=== PATIENT | female | born 1945 | race Caucasian/White ===

== ENCOUNTER 2020-06-01 04:05 | Emergency (ER) | payer MEDICARE, SELFPAY ==
[2020-06-01 04:07] VITALS: BP 114/62; BP 119/68; PULSE 83; PULSE 84; RESP 16; TEMP 36.2; O2SAT 91; O2SAT 94; BMI 24.7
--- NOTE | 2020-06-01 04:28 | ED.ALCOHOL ---
HPI - Alcohol General Chief Complaint: ETOH/Substance Use Stated Complaint: ETOH/FALL Time Seen by Provider: 06/01/20 04:25 Source: patient and EMS Mode of arrival: EMS Limitations: no limitations History of Present Illness HPI narrative: patient alcoholic been here frequent had few beers today was in the bathroom and nauseated and had bowel movement had stool all over the bathroom. Patient denies any fall no head injury no vomiting now feeling fine family called the ambulance because unable to manage. Patient does not remember why was she is in bathroom and what what was she doing denies any pain MD complaint: alcohol intoxication Chronic alcohol use: Yes Previous visits for alcohol intoxication: Yes Recent trauma: No Related Data Allergies Allergy/AdvReac Type Severity Reaction Status Date / Time ibuprofen [IBUPROFEN] Allergy Unknown RASH Verified 06/01/20 04:06 Review of Systems Review of Systems: REVIEW OF SYSTEMS: Pertinent positives and negatives are stated above in the history. GEN: no fevers, chills, fatigue HEENT: no nasal congestion, sore throat, ear pain NEURO: no headache, dizziness, focal weakness PULM: no cough, shortness of breath CV: no chest pain, palpitations, LE edema ABD: no abdominal pain, nausea, vomiting, diarrhea : no dysuria, urgency, frequency SKIN: no rash ROS otherwise negative x 10 PMFSH Past Medical History Medical History Depression Social History Social History Advance Directives: No Advance Directives Information Provided: No Physical Exam Vital Signs: Vital Signs: Last Vital Signs Temp 97.1 F 06/01/20 04:07 Pulse 81 06/01/20 06:56 Resp 18 06/01/20 06:56 BP 141/77 H 06/01/20 06:56 Pulse Ox 99 06/01/20 06:56 Body Mass Index 24.7 Appearance: Alert. Oriented X3. No acute distress. intoxicated soiled in stool Eyes: Pupils equal, round and reactive to light. ENT: Pharynx normal. atraumatic Neck: Normal inspection. Neck supple. CVS: Normal heart rate and rhythm. Pulses normal. Respiratory: No respiratory distress. Breath sounds normal. Abdomen: Soft and nontender. no mass palpable Skin: Skin warm and dry. Normal skin color. Normal skin turgor. Extremities: No lower extremity edema. Good range of movement Neuro: Oriented X 3. No motor deficit. No sensory deficit. MDM - Alcohol MDM Narrative Medical decision making narrative: patient alcohol abuse disorder came intoxicated will wait for family to come and take her home patient refused to go to detox at this time Differential Diagnosis Differential diagnosis: Likely alcohol dependence Medical Records Attestation: I reviewed the patient's medical records. Lab Data Attestation: I reviewed the patient's lab results. Result diagrams: 06/01/20 04:54 06/01/20 04:54 Labs: Lab Results 06/01/20 06/01/20 06/01/20 Range/Units 04:54 04:54 04:54 WBC 7.2 (4.8-10.8) X10*3/uL RBC 4.52 (4.20-5.50) X10*6/uL Hgb 12.8 (12.0-16.0) g/dl Hct 39.7 (37-47) % MCV 87.8 (80-98) fL MCH 28.3 (27.0-33.0) pg MCHC 32.2 (31.0-35.0) g/dl RDW 13.8 (11.0-16.0) % Plt Count 205 (160-400) X10*3/uL MPV 10.1 (9.4-12.3) fL Immature Gran % (Auto) 0.8 H (0.0-0.4) % Neut % (Auto) 78.9 H (45-73) % Lymph % (Auto) 13.9 L (20-40) % [place] % (Auto) 5.4 (2-11) % Eos % (Auto) 0.7 (0-4) % Baso % (Auto) 0.3 (0-2) % Lymph # (Auto) 1.0 L (1.2-4.9) X10*3/uL [place] # (Auto) 0.4 (0.1-1.2) X10*3/uL Eos # (Auto) 0.1 (0.0-0.4) X10*3/uL Baso # (Auto) 0.0 (0.0-0.2) X10*3/uL Abs Immat Gran (auto) 0.06 H (0.00-0.03) X10*3/uL Absolute Neuts (auto) 5.7 (2.0-8.3) X10*3/uL Absolute Nucleated RBC 0.000 (0.0-0.012) X10*3/uL Nucleated RBC % (auto) 0.0 (0.0-0.2) /100WBC Sodium 141 (135-145) mmol/L Potassium 3.9 (3.3-5.1) mmol/l Chloride 108 (96-108) mmol/L Carbon Dioxide 17 L (22-29) mmol/L Anion Gap 20 (12-20) BUN 14 (9-16) mg/dL Creatinine 0.89 (0.5-1.4) mg/dL Estim Creat Clear Calc 49.0 Estimated GFR > 60 Random Glucose 103 (60-115) mg/dL Calcium 9.0 (8.4-10.2) mg/dL Total Bilirubin 0.3 (0.0-1.0) mg/dL AST 45 H (5-31) U/L ALT 34 H (0-31) U/L Alkaline Phosphatase 89 (39-117) U/L Troponin I High Sens (<3.5-17.0) ng/L Total Protein 8.1 H (6.5-8.0) g/dL Albumin 4.6 (3.5-5.0) g/dL Lipase 66 (8-78) U/L Ethyl Alcohol 250 mg/dL 06/01/20 Range/Units 04:54 WBC (4.8-10.8) X10*3/uL RBC (4.20-5.50) X10*6/uL Hgb (12.0-16.0) g/dl Hct (37-47) % MCV (80-98) fL MCH (27.0-33.0) pg MCHC (31.0-35.0) g/dl RDW (11.0-16.0) % Plt Count (160-400) X10*3/uL MPV (9.4-12.3) fL Immature Gran % (Auto) (0.0-0.4) % Neut % (Auto) (45-73) % Lymph % (Auto) (20-40) % [place] % (Auto) (2-11) % Eos % (Auto) (0-4) % Baso % (Auto) (0-2) % Lymph # (Auto) (1.2-4.9) X10*3/uL [place] # (Auto) (0.1-1.2) X10*3/uL Eos # (Auto) (0.0-0.4) X10*3/uL Baso # (Auto) (0.0-0.2) X10*3/uL Abs Immat Gran (auto) (0.00-0.03) X10*3/uL Absolute Neuts (auto) (2.0-8.3) X10*3/uL Absolute Nucleated RBC (0.0-0.012) X10*3/uL Nucleated RBC % (auto) (0.0-0.2) /100WBC Sodium (135-145) mmol/L Potassium (3.3-5.1) mmol/l Chloride (96-108) mmol/L Carbon Dioxide (22-29) mmol/L Anion Gap (12-20) BUN (9-16) mg/dL Creatinine (0.5-1.4) mg/dL Estim Creat Clear Calc Estimated GFR Random Glucose (60-115) mg/dL Calcium (8.4-10.2) mg/dL Total Bilirubin (0.0-1.0) mg/dL AST (5-31) U/L ALT (0-31) U/L Alkaline Phosphatase (39-117) U/L Troponin I High Sens < 3.5 (<3.5-17.0) ng/L Total Protein (6.5-8.0) g/dL Albumin (3.5-5.0) g/dL Lipase (8-78) U/L Ethyl Alcohol mg/dL Discharge Plan Discharge Clinical Impression: Alcoholic intoxication Patient Disposition: Home, Self-Care Instructions: Alcohol Intoxication (ED) Additional Instructions: stop drinking alcohol follow-up with detox Print Language: [place]
--- NOTE | 2020-06-01 04:43 | ECG_ITS ---
Test Reason : FALL Blood Pressure : / mmHG Vent. Rate : 068 BPM Atrial Rate : 068 BPM P-R Int : 148 ms QRS Dur : 104 ms QT Int : 438 ms P-R-T Axes : 058 020 028 degrees QTc Int : 465 ms Normal sinus rhythm Normal ECG No significant changes when compared with the previous EKG of 04 jul 2007. Referred By: Herbie Ham Electronically Signed By:MARRY NEAL
[2020-06-01] MEDS: 0.9 % Sodium Chloride 1,000 ML 999 ML IVCONT (04:55)
[2020-06-01 05:03] LABS: Basophils Percent Auto 0.3 % (0-2); Eosinophils Absolute Auto 0.1 X10*3/uL (0.0-0.4); Eosinophils Percent Auto 0.7 % (0-4); Hematocrit 39.7 % (37-47); Hemoglobin 12.8 g/dl (12.0-16.0); Imm Gran Abs Auto 0.06 X10*3/uL (0.00-0.03); Imm Gran Pct Auto 0.8 % (0.0-0.4); Lymphocytes Percent Auto 13.9 % (20-40); MANUAL DIFF FLAG NO; Mean Corpuscular HGB Conc 32.2 g/dl (31.0-35.0); Mean Corpuscular Hemoglobin 28.3 pg (27.0-33.0); Mean Corpuscular Volume 87.8 fL (80-98); Mean Platelet Volume 10.1 fL (9.4-12.3); Monocytes Absolute Auto 0.4 X10*3/uL (0.1-1.2); Monocytes Percent Auto 5.4 % (2-11); Neutrophils Absolute Auto 5.7 X10*3/uL (2.0-8.3); Neutrophils Percent Auto 78.9 % (45-73); Platelet Count 205 X10*3/uL (160-400); Red Blood Count 4.52 X10*6/uL (4.20-5.50); Red Cell Distribution Width 13.8 % (11.0-16.0); White Blood Count 7.2 X10*3/uL (4.8-10.8)
[2020-06-01 05:23] LABS: Ethanol 250 mg/dL
[2020-06-01 05:38] LABS: Alanine Aminotransferase 34 U/L (0-31); Albumin Level 4.6 g/dL (3.5-5.0); Alkaline Phosphatase 89 U/L (39-117); Anion Gap 20 (12-20); Aspartate Amino Transferase 45 U/L (5-31); Bilirubin Total 0.3 mg/dL (0.0-1.0); Blood Urea Nitrogen 14 mg/dL (9-16); Carbon Dioxide 17 mmol/L (22-29); Chloride 108 mmol/L (96-108); Estimated Glomerular Filt Rate > 60; Glucose Random 103 mg/dL (60-115); Lipase 66 U/L (8-78); Potassium 3.9 mmol/l (3.3-5.1); Sodium 141 mmol/L (135-145); Total Protein 8.1 g/dL (6.5-8.0)
[2020-06-01 06:04] LABS: Troponin-I High Sensitivity < 3.5 ng/L (<3.5-17.0)
[2020-06-01 06:08] VITALS: BP 136/71; PULSE 73; RESP 14; O2SAT 98
[2020-06-01 06:56] VITALS: BP 141/77; PULSE 81; RESP 18; O2SAT 99
--- NOTE | 2020-06-01 07:22 | PC.NURSE ---
CALL TO DAUGHTER FOR TRANSPORT HOME, NO ANSWER.
--- NOTE | 2020-06-01 07:28 | PC.NURSE ---
CONTACTED , WILL BE TO [employer] PATIENT IN 30 MINUTES.
[2020-06-01 08:02] LABS: Magnesium 2.5 mg/dL (1.6-2.6)
== END 2020-06-01 07:57 | disposition home or self-care (01) ==
PROVIDERS: Emergency Provider Internal Medicine
DX: F10.120 Alcohol abuse with intoxication, uncomplicated (principal); Y90.8 Blood alcohol level of 240 mg/100 ml or more
CPT/HCPCS: 36415; 80053; 80320; 83690; 83735; 84484; 85025; 93005; 96360; 99284

== ENCOUNTER 2020-06-05 10:37 | Emergency (ER) | payer MEDICARE, SELFPAY ==
[2020-06-05 11:18] VITALS: BP 154/67; PULSE 85; RESP 18; TEMP 36.6; O2SAT 97; BMI 26.0
--- NOTE | 2020-06-05 11:34 | XR_ITS ---
EXAMINATION: XR RIBS, RIGHT CLINICAL INFORMATION: Rib pain post fall COMPARISON: None TECHNIQUE: 3 views of the right ribs and one view of the chest were obtained. FINDINGS: The cardiac and mediastinal contours are normal. There is scarring or subsegmental atelectasis at the lung bases. The lungs are otherwise clear. There is no pleural effusion or pneumothorax. There are right anterior seventh and 10th rib fractures. XR/XR ribs RT min 3V w CXR1V IMPRESSION: Right anterior seventh and 10th rib fractures. No evidence for acute disease in the chest.
--- NOTE | 2020-06-05 12:00 | ED.FALL ---
HPI - Fall General Chief Complaint: Back Pain/Injury Stated Complaint: back pain Time Seen by Provider: 06/05/20 11:34 Source: patient Mode of arrival: ambulatory Limitations: language barrier History of Present Illness HPI Narrative: 74 y/o female with history of alcohol abuse s/p recent fall in the bathroom 06/01 while intoxicated presents back to the ER with persistent right sided rib pain. She was seen here after the fall on 06/01, blood work and EKG were checked - she refused detox and was discharged home. She reports pain in the right rib cage, worse with palpation, movement and deep inspiration. She bought and abdominal binder and has been taking Tylenol without improvement. She denies SOB, chest pain, abdominal pain, N/V. complaint: fall Onset (ago): day(s) Fall from: standing Fall witnessed: no Place fall occurred: home Loss of consciousness: none Prolonged down time: no Symptoms prior to fall: none Context: tripped/slipped and alcohol use Location of injury: chest Severity: moderate Severity scale (1-10): 6 Quality: aching Associated symptoms (after fall): denies Related Data Previous Rx's Medication Instructions Recorded acetaminophen [Tylenol Arthritis 650 mg PO Q8H PRN #30 tab 06/05/20 Pain] lidocaine [Lidoderm] 1 patch TOPICAL DAILY #15 ea 06/05/20 Allergies Allergy/AdvReac Type Severity Reaction Status Date / Time ibuprofen [IBUPROFEN] Allergy Unknown RASH Verified 06/01/20 04:06 Review of Systems Review of Systems: Constitutional: No Fever, No Chills Cardiovascular: No Chest Pain, No SOB Respiratory: No Cough, No Sputum Gastrointestinal: No Nausea, No Vomiting, No Diarrhea, No abdominal Pain Musculoskeletal: + joint pain, + Myalgias Skin: No Skin Lesions, No rash Neuro: No Weakness, No Numbness, No Dizziness, No Headache Psych: No Anxiety/Panic, No Depression Heme/Lymph: + Bruising PMFSH Past Medical History Attestation statement: The following information was validated with the patient. Medical History Depression Social History Social History Advance Directives: No Advance Directives Information Provided: Yes Physical Exam Vital Signs: Vital Signs: Last Vital Signs Temp 97.8 F 12/09/20 11:18 Pulse 85 06/05/20 11:18 Resp 18 06/05/20 11:18 BP 154/67 H 06/05/20 11:18 Pulse Ox 97 06/05/20 11:18 Body Mass Index 26.0 Appearance: Alert. Oriented X3. No acute distress. Neck: Normal inspection. Neck supple. CVS: Normal heart rate and rhythm. Pulses normal. Respiratory: No respiratory distress. Breath sounds normal. Chest wall: right anterior and lateral lower rib pain, mild small ecchmotic area over 11th rib at mid-clavicular line Abdomen: Soft and nontender. +BS x4, no RUQ tenderness, no rebound or guarding Skin: Skin warm and dry. Normal skin color. Normal skin turgor. No rashes. Extremities: No lower extremity edema. Neuro: Oriented X 3. No motor deficit. No sensory deficit. Course Course Course Narrative: 74 y/o female presenting with right sided rib pain s/p fall while intoxicated on 06/01. Exam reveals mild ecchymosis on lower ribs with tenderness, concern for rib fracture. Vitals are stable and SpO2 97% on room air. Lungs are clear, less likely pulmonary contusion. No other injuries noted. Will get XR ribs and chest. Reevaluation(s) Reevaluation #1: XR shows anterior rib fractures 7th and 10th ribs. She appears well, SpO2 97%. Incentive spirometry ordered and patient educated with RT. She was counseled on risk of developing pneumonia due to splinting. Will give Rx for Tylenol, topical lidocaine patches. Patient at high risk for recurrent falls due to alcohol use and it is not in her best interest to prescribe narcotics. She understands and agrees with plan. Stable for discharge. Discharge Plan Discharge Clinical Impression: Multiple rib fractures Qualifiers: Encounter type: initial encounter Fracture type: closed Laterality: right Qualified Code(s): S22.41XA - Multiple fractures of ribs, right side, initial encounter for closed fracture Patient Disposition: Home, Self-Care Instructions: Rib Fracture (ED) Additional Instructions: Your Chest X-ray showed 2 rib fracutres on the right side. It is very important that you use your Incentive Spirometer to take deep breaths & keep your lungs expanded. This will help present pneumonia. If you develop difficulty breathing, shortness of breath, fevers, worsening cough call your doctor or come back to the ER for further evaluation. DO NOT drink alcohol. This will increase your risk of recurrrent falls. Prescriptions: New acetaminophen [Tylenol Arthritis Pain] 650 mg tablet extended release 650 mg PO Q8H PRN (Reason: pain) Qty: 30 RF: 0 lidocaine [Lidoderm] 5 % adhesive patch,medicated 1 patch topical DAILY Qty: 15 RF: 0
== END 2020-06-05 13:22 | disposition home or self-care (01) ==
PROVIDERS: Emergency Provider Emergency Medicine; PCP Internal Medicine
DX: S22.41XA Multiple fractures of ribs, right side, initial encounter for closed fracture (principal); W01.10XA Fall on same level from slipping, tripping and stumbling with subsequent striking against unspecified object, initial encounter; F10.10 Alcohol abuse, uncomplicated; Z91.81 History of falling; Y93.89 Activity, other specified; Y92.012 Bathroom of single-family (private) house as the place of occurrence of the external cause; Y99.9 Unspecified external cause status
CPT/HCPCS: 71101; 99283

== ENCOUNTER 2020-08-14 11:25 | Outpatient (REF) | payer MEDICARE, SELFPAY ==
--- NOTE | ~2020-08-14 | MM_ITS ---
EXAMINATION: MM SCREENING DIGITAL BREAST TOMOSYNTHESIS, BILATERAL CLINICAL INFORMATION: Screening. Asymptomatic. The lifetime risk of breast cancer based on the Tyrer-Cuzick Model is 2%. COMPARISON: Mammography: 04/07/2019, 04/06/2018, 03/22/2017 TECHNIQUE: Digital breast tomosynthesis is performed in both the craniocaudal and mediolateral oblique views along with computer-aided detection (CAD). Synthesized 2D images are generated from the tomosynthesis. FINDINGS: There are scattered areas of fibroglandular density (ACR BI-RADS breast composition Category b). There are no significant masses, abnormal calcifications, or other abnormalities. The axilla and skin contours are unremarkable. MM/MM tomosynthesis screening BI IMPRESSION: No mammographic evidence of malignancy. ASSESSMENT: BI-RADS 1: Negative RECOMMENDATION: Routine annual mammography screening. This patient's information was entered into a reminder system with a target due date for their next mammogram.
== END 2020-08-14 11:26 | disposition home or self-care (01) ==
LOC: HO.MAMMO 11:25
PROVIDERS: Visit Provider Internal Medicine
DX: Z12.31 Encounter for screening mammogram for malignant neoplasm of breast (principal)
CPT/HCPCS: 77063; 77067

== ENCOUNTER 2020-08-23 09:57 | Outpatient (REF) | payer MEDICARE, SELFPAY ==
[2020-08-23 12:46] LABS: Alanine Aminotransferase 18 U/L (0-31); Albumin Level 4.5 g/dL (3.5-5.0); Alkaline Phosphatase 102 U/L (39-117); Anion Gap 14 (12-20); Aspartate Amino Transferase 16 U/L (5-31); Bilirubin Total 0.5 mg/dL (0.0-1.0); Blood Urea Nitrogen 23 mg/dL (9-16); Calcium 9.5 mg/dL (8.4-10.2); Carbon Dioxide 26 mmol/L (22-29); Chloride 104 mmol/L (96-108); Cholesterol 225 mg/dL; Estimated Glomerular Filt Rate > 60; Glucose Random 106 mg/dL (60-115); HDL Cholesterol 64 mg/dL; LDL Cholesterol Calculated 129 mg/dl; Potassium 3.9 mmol/L (3.3-5.1); Sodium 140 mmol/L (135-145); Total Protein 7.6 g/dL (6.5-8.0); Triglycerides 160 mg/dL
== END 2020-08-23 09:58 | disposition home or self-care (01) ==
LOC: HO.LAB 09:57
PROVIDERS: Visit Provider Internal Medicine
DX: E78.2 Mixed hyperlipidemia (principal); I10 Essential (primary) hypertension; S22.41XS Multiple fractures of ribs, right side, sequela; Z68.25 Body mass index [BMI] 25.0-25.9, adult
CPT/HCPCS: 36415; 80053; 80061

== ENCOUNTER 2021-01-23 11:55 | Outpatient (REF) | payer MEDICARE, SELFPAY ==
[2021-01-23 12:23] LABS: MANUAL DIFF FLAG NO
[2021-01-23 12:33] LABS: Basophils Percent Auto 0.3 % (0-2); Eosinophils Absolute Auto 0.3 X10*3/uL (0.0-0.4); Eosinophils Percent Auto 4.3 % (0-4); Hemoglobin 12.3 g/dl (12.0-16.0); Imm Gran Abs Auto 0.02 X10*3/uL (0.00-0.03); Imm Gran Pct Auto 0.3 % (0.0-0.4); Lymphocytes Absolute Auto 2.2 X10*3/uL (1.2-4.9); Lymphocytes Percent Auto 34.5 % (20-40); Mean Corpuscular HGB Conc 32.4 g/dl (31.0-35.0); Mean Corpuscular Volume 86.6 fL (80-98); Mean Platelet Volume 10.2 fL (9.4-12.3); Monocytes Absolute Auto 0.5 X10*3/uL (0.1-1.2); Monocytes Percent Auto 8.4 % (2-11); Neutrophils Absolute Auto 3.4 X10*3/uL (2.0-8.3); Neutrophils Percent Auto 52.2 % (45-73); Platelet Count 212 X10*3/uL (160-400); Red Blood Count 4.39 X10*6/uL (4.20-5.50); Red Cell Distribution Width 14.5 % (11.0-16.0); White Blood Count 6.5 X10*3/uL (4.8-10.8)
[2021-01-23 12:46] LABS: Alanine Aminotransferase 31 U/L (0-31); Albumin Level 4.3 g/dL (3.5-5.0); Alkaline Phosphatase 103 U/L (39-117); Anion Gap 14 (12-20); Aspartate Amino Transferase 24 U/L (5-31); Bilirubin Total 0.6 mg/dL (0.0-1.0); Blood Urea Nitrogen 15 mg/dL (9-16); Calcium 9.9 mg/dL (8.4-10.2); Carbon Dioxide 25 mmol/L (22-29); Chloride 107 mmol/L (96-108); Cholesterol 249 mg/dL; Estimated Glomerular Filt Rate > 60; Glucose Random 97 mg/dL (60-115); HDL Cholesterol 54 mg/dL; LDL Cholesterol Calculated 138 mg/dl; Potassium 4.3 mmol/L (3.3-5.1); Sodium 142 mmol/L (135-145); Total Protein 7.2 g/dL (6.5-8.0); Triglycerides 285 mg/dL
== END 2021-01-23 11:56 | disposition home or self-care (01) ==
LOC: HO.LAB 11:55
PROVIDERS: PCP Internal Medicine; Visit Provider Internal Medicine
DX: E78.2 Mixed hyperlipidemia (principal); F33.42 Major depressive disorder, recurrent, in full remission; G30.9 Alzheimer's disease, unspecified; I10 Essential (primary) hypertension
CPT/HCPCS: 36415; 80053; 80061; 85025

== ENCOUNTER 2021-05-13 11:38 | Outpatient (REF) | payer MEDICARE, SELFPAY ==
[2021-05-13 13:56] LABS: Alanine Aminotransferase 30 U/L (0-31); Albumin Level 4.2 g/dL (3.5-5.0); Alkaline Phosphatase 124 U/L (39-117); Anion Gap 15 (12-20); Aspartate Amino Transferase 23 U/L (5-31); Bilirubin Total 0.4 mg/dL (0.0-1.0); Blood Urea Nitrogen 13 mg/dL (9-16); Calcium 9.5 mg/dL (8.4-10.2); Carbon Dioxide 21 mmol/L (22-29); Chloride 108 mmol/L (96-108); Cholesterol 208 mg/dL; Estimated Glomerular Filt Rate > 60; Glucose Random 91 mg/dL (60-115); HDL Cholesterol 50 mg/dL; LDL Cholesterol Calculated 98 mg/dl; Potassium 4.2 mmol/L (3.3-5.1); Sodium 140 mmol/L (135-145); Total Protein 7.3 g/dL (6.5-8.0); Triglycerides 302 mg/dL
== END 2021-05-13 11:39 | disposition home or self-care (01) ==
LOC: HO.LAB 11:38
PROVIDERS: PCP Internal Medicine; Visit Provider Internal Medicine
DX: Z00.00 Encounter for general adult medical examination without abnormal findings (principal); E78.2 Mixed hyperlipidemia; I10 Essential (primary) hypertension; F51.02 Adjustment insomnia
CPT/HCPCS: 36415; 80053; 80061

== ENCOUNTER 2021-08-19 12:41 | Outpatient (REF) | payer MEDICARE, SELFPAY ==
--- NOTE | ~2021-08-19 | MM_ITS ---
EXAMINATION: MM SCREENING DIGITAL BREAST TOMOSYNTHESIS, BILATERAL CLINICAL INFORMATION: Screening. Asymptomatic. The lifetime risk of breast cancer based on the Tyrer-Cuzick Model is 2%. COMPARISON: Mammography: 08/14/2020, 04/07/2019, 04/06/2018 TECHNIQUE: Digital breast tomosynthesis is performed in both the craniocaudal and mediolateral oblique views along with computer-aided detection (CAD). Synthesized 2D images are generated from the tomosynthesis. FINDINGS: There are scattered areas of fibroglandular density (ACR BI-RADS breast composition Category b). There are no significant masses, abnormal calcifications, or other abnormalities. Parenchymal pattern is similar to prior studies. There is no developing density or architectural abnormality. The axilla and skin contours are unremarkable. No significant changes. MM/MM tomosynthesis screening BI IMPRESSION: No mammographic evidence of malignancy. ASSESSMENT: BI-RADS 1: Negative RECOMMENDATION: Routine annual mammography screening. This patient's information was entered into a reminder system with a target due date for their next mammogram.
== END 2021-08-19 12:42 | disposition home or self-care (01) ==
LOC: HO.MAMMO 12:41
PROVIDERS: PCP Internal Medicine; Visit Provider Internal Medicine
DX: Z12.31 Encounter for screening mammogram for malignant neoplasm of breast (principal)
CPT/HCPCS: 77063; 77067

== ENCOUNTER 2021-12-17 11:27 | Outpatient (REF) | payer OTHER, SELFPAY ==
[2021-12-17 11:37] LABS: MANUAL DIFF FLAG NO
[2021-12-17 13:05] LABS: Basophils Percent Auto 0.5 % (0-2); Eosinophils Absolute Auto 0.2 X10*3/uL (0.0-0.4); Eosinophils Percent Auto 3.3 % (0-4); Hematocrit 37.1 % (37.0-47.0); Hemoglobin 12.2 g/dl (12.0-16.0); Imm Gran Abs Auto 0.02 X10*3/uL (0.00-0.03); Imm Gran Pct Auto 0.3 % (0.0-0.4); Lymphocytes Absolute Auto 1.9 X10*3/uL (1.2-4.9); Lymphocytes Percent Auto 29.3 % (20-40); Mean Corpuscular HGB Conc 32.9 g/dl (31.0-35.0); Mean Corpuscular Hemoglobin 28.7 pg (27.0-33.0); Mean Corpuscular Volume 87.3 fL (80.0-98.0); Mean Platelet Volume 10.5 fL (9.4-12.3); Monocytes Absolute Auto 0.6 X10*3/uL (0.1-1.2); Monocytes Percent Auto 9.3 % (2-11); Neutrophils Absolute Auto 3.6 x10*3/uL (2.0-8.3); Neutrophils Percent Auto 57.3 % (45-73); Platelet Count 231 X10*3/uL (160-400); Red Blood Count 4.25 X10*6/uL (4.20-5.50); Red Cell Distribution Width 14.2 % (11.0-16.0); White Blood Count 6.3 X10*3/uL (4.8-10.8)
[2021-12-17 13:33] LABS: Alanine Aminotransferase 32 U/L (0-31); Albumin Level 4.4 g/dL (3.5-5.0); Alkaline Phosphatase 118 U/L (39-117); Anion Gap 11 (12-20); Aspartate Amino Transferase 30 U/L (5-31); Bilirubin Total 0.6 mg/dL (0.0-1.0); Blood Urea Nitrogen 11 mg/dL (9-16); Calcium 9.5 mg/dL (8.4-10.2); Carbon Dioxide 24 mmol/L (22-29); Chloride 109 mmol/L (96-108); Estimated Glomerular Filt Rate > 60; Glucose Random 95 mg/dL (60-115); Potassium 4.4 mmol/L (3.3-5.1); Sodium 140 mmol/L (135-145); Total Protein 7.6 g/dL (6.5-8.0)
== END 2021-12-17 11:28 | disposition home or self-care (01) ==
LOC: HO.LAB 11:27
PROVIDERS: PCP Internal Medicine; Visit Provider Internal Medicine
DX: E78.00 Pure hypercholesterolemia, unspecified (principal); I10 Essential (primary) hypertension; R41.89 Other symptoms and signs involving cognitive functions and awareness
CPT/HCPCS: 36415; 80053; 85025

== ENCOUNTER 2022-04-08 10:54 | Outpatient (REF) | payer OTHER, SELFPAY ==
[2022-04-08 13:04] LABS: Cholesterol 205 mg/dL; HDL Cholesterol 64 mg/dL; LDL Cholesterol Calculated 102 mg/dl; Triglycerides 199 mg/dL
[2022-04-08 13:26] LABS: Vitamin B12 1056 pg/mL (200-900)
[2022-04-08 13:28] LABS: Thyroid Stimulating Hormone 0.77 uIU/mL (0.32-4.0)
== END 2022-04-08 10:55 | disposition home or self-care (01) ==
LOC: HO.LAB 10:54
PROVIDERS: PCP Internal Medicine; Visit Provider Internal Medicine
DX: M24.541 Contracture, right hand (principal); E78.00 Pure hypercholesterolemia, unspecified; I10 Essential (primary) hypertension; M54.50 Low back pain, unspecified; M24.549 Contracture, unspecified hand
CPT/HCPCS: 36415; 80061; 82306; 82607; 84443; 99202

== ENCOUNTER 2022-06-02 10:19 | Outpatient (REF) | payer OTHER, SELFPAY ==
[2022-06-02 10:33] LABS: MANUAL DIFF FLAG NO
[2022-06-02 11:43] LABS: Basophils Percent Auto 0.6 % (0-2); Eosinophils Absolute Auto 0.4 X10*3/uL (0.0-0.4); Eosinophils Percent Auto 6.3 % (0-4); Hematocrit 38.1 % (37.0-47.0); Hemoglobin 12.5 g/dl (12.0-16.0); Imm Gran Abs Auto 0.03 X10*3/uL (0.00-0.03); Imm Gran Pct Auto 0.4 % (0.0-0.4); Lymphocytes Absolute Auto 1.8 X10*3/uL (1.2-4.9); Lymphocytes Percent Auto 26.4 % (20-40); Mean Corpuscular HGB Conc 32.8 g/dl (31.0-35.0); Mean Corpuscular Hemoglobin 28.7 pg (27.0-33.0); Mean Corpuscular Volume 87.4 fL (80.0-98.0); Mean Platelet Volume 10.4 fL (9.4-12.3); Monocytes Absolute Auto 0.6 X10*3/uL (0.1-1.2); Monocytes Percent Auto 8.8 % (2-11); Neutrophils Absolute Auto 3.9 x10*3/uL (2.0-8.3); Neutrophils Percent Auto 57.5 % (45-73); Platelet Count 269 X10*3/uL (160-400); Red Blood Count 4.36 X10*6/uL (4.20-5.50); White Blood Count 6.8 X10*3/uL (4.8-10.8)
[2022-06-02 12:43] LABS: Alanine Aminotransferase 22 U/L (0-31); Albumin Level 4.4 g/dL (3.5-5.0); Alkaline Phosphatase 98 U/L (39-117); Anion Gap 13 (12-20); Aspartate Amino Transferase 23 U/L (5-31); Bilirubin Total 0.5 mg/dL (0.0-1.0); Blood Urea Nitrogen 10 mg/dL (9-16); Calcium 9.6 mg/dL (8.4-10.2); Carbon Dioxide 23 mmol/L (22-29); Chloride 109 mmol/L (96-108); Estimated Glomerular Filt Rate > 60; Glucose Random 90 mg/dL (60-115); Potassium 4.3 mmol/L (3.3-5.1); Sodium 141 mmol/L (135-145); Total Protein 7.6 g/dL (6.5-8.0)
== END 2022-06-02 10:20 | disposition home or self-care (01) ==
LOC: HO.LAB 10:19
PROVIDERS: PCP Internal Medicine; Visit Provider Internal Medicine
DX: Z00.00 Encounter for general adult medical examination without abnormal findings (principal); E55.9 Vitamin D deficiency, unspecified; E78.00 Pure hypercholesterolemia, unspecified; M81.8 Other osteoporosis without current pathological fracture
CPT/HCPCS: 36415; 80053; 85025

== ENCOUNTER 2022-09-25 22:21 | Emergency (ER) | payer OTHER, SELFPAY ==
--- NOTE | ~2022-09-25 | XR_ITS ---
EXAMINATION: XR CHEST CLINICAL INFORMATION: Fall. COMPARISON: None available. TECHNIQUE: Frontal portable view of the chest was obtained. 0020 hours FINDINGS: Lungs are clear. No pulmonary vascular congestion. There is no pleural effusion. The heart size is normal. The cardiac and mediastinal contours are normal. There are calcifications of the thoracic aorta. There are multilevel degenerative changes of dorsal spine. XR/XR chest 1V IMPRESSION: Unremarkable examination.
--- NOTE | ~2022-09-25 | CT_ITS ---
EXAMINATION: NONCONTRAST HEAD CT NONCONTRAST CERVICAL SPINE CT INDICATION INFORMATION: Trauma COMPARISON: 12/13/2017 TECHNIQUE: Separate noncontrast CT examinations of the head and cervical spine were performed. Coronal and sagittal images were created for each examination at the technologist workstation. This CT examination was performed using dose optimization techniques as appropriate, variously including the following: *Automated exposure control *Adjustment of mA and/or kV according to patient size (this includes techniques or standardized protocols for targeted exams where dose is matched to indication/reason for exam; i.e. extremities or head) *Use of iterative reconstruction technique DLP: 788 mGy-cm FINDINGS: Head: There is no evidence of acute intracranial hemorrhage or territorial infarction. No abnormal mass effect or midline shift is seen. Zamora to white matter differentiation is well preserved. No extra-axial fluid collections are identified. No hydrocephalus. Proportional prominence of the ventricles and sulcal spaces is consistent with moderate volume loss. Patchy periventricular and deep white matter hypoattenuation is consistent with moderate small vessel ischemic changes. No acute osseous or soft tissue abnormality. The mastoid air cells are clear. Mucous retention cysts in the right maxillary sinus. Cervical spine: There is anatomic alignment of the vertebral bodies and posterior elements. The atlantoaxial and atlantooccipital articulations are intact. Vertebral body heights maintained. Endplate osteophytes present throughout the cervical spine. Facet arthropathy throughout the cervical spine, worse on the left, particularly from C4 C6. There is 3 mm anterolisthesis of C5 over C6 secondary to facet arthropathy. No evidence of acute fracture. No prevertebral soft tissue swelling. Visualized portions of the lung apices are unremarkable. The thyroid gland is unremarkable. CT/CT cervical spine wo IV con IMPRESSION: * No acute intracranial bleed or territorial infarction. * No acute fracture or traumatic subluxation of the cervical spine. * Chronic findings as described above.
[2022-09-25 22:30] VITALS: BP 135/75; BP 142/76; PULSE 75; PULSE 78; RESP 16; TEMP 36.6; O2SAT 95; O2SAT 96; BMI 22.6
[2022-09-25 22:39] VITALS: BP 135/75; PULSE 75; RESP 16; TEMP 36.4; O2SAT 95
[2022-09-25 23:28] LABS: Appearance Urine Clear; Color Urine Yellow; Glucose Urine UA Negative (Negative); Leukocyte Esterase Urine Small (1+) (Negative); Nitrite Urine Negative (Negative); PH 5.5 (5.0-9.0); Specific Gravity - Urine <= 1.005 (1.005-1.025); UMIC TRIGGER UACC YES; Urine Blood Negative (Negative); Urine Ketones Negative (Negative); Urine Protein Negative (Neg-Trace)
--- NOTE | 2022-09-25 23:29 | ECG_ITS ---
Test Reason : FALL Blood Pressure : / mmHG Vent. Rate : 078 BPM Atrial Rate : 078 BPM P-R Int : 154 ms QRS Dur : 100 ms QT Int : 422 ms P-R-T Axes : 051 028 044 degrees QTc Int : 481 ms Normal sinus rhythm Normal ECG When compared with ECG of 01-JUN-2020 04:51, No significant change was found Referred By: Simon Souza Electronically Signed By:MARRY NEAL
--- NOTE | 2022-09-25 23:31 | ED.GENADULT ---
HPI - General Adult General Chief complaint: Fall Stated complaint: etoh with lac, c collar Time Seen by Provider: 09/25/22 23:21 Source: patient, family (Daughter) and EMS Mode of arrival: EMS Limitations: no limitations History of Present Illness HPI narrative: 77-year-old female came in from home for evaluation after a fall. Patient was found by her in the bathroom on the floor bleeding from her head, patient do not remember how she fell, patient is a chronic alcoholic and daily drinker. Patient declined CP, SOB, abdominal pain, nausea, V, D, or dizziness. Patient is sustaining a small scalp laceration on the right side of the occiput. Related Data Home Medications Medication Instructions Recorded Confirmed amlodipine 10 mg tablet 10 mg PO DAILY 04/08/22 atorvastatin 80 mg tablet 80 mg PO DAILY 04/08/22 cyanocobalamin (vitamin B-12) 1,000 mcg PO DAILY 04/08/22 1,000 mcg tablet losartan 100 mg tablet 0 mg PO 04/08/22 omeprazole 20 mg capsule,delayed 20 mg PO DAILY 04/08/22 release Previous Rx's Medication Instructions Recorded acetaminophen 650 mg 650 mg PO Q8H PRN pain #30 tabs 06/05/20 tablet,extended release (Tylenol Arthritis Pain) lidocaine 5 % topical patch 1 patch topical DAILY #15 ea 06/05/20 (Lidoderm) Allergies Allergy/AdvReac Type Severity Reaction Status Date / Time No Known Allergies Allergy Verified 04/08/22 13:06 Review of Systems Review of Systems: All other systems are reviewed and are negative Constitutional: Reports as per HPI and Reports no additional constitutional complaints Eyes: Reports as per HPI and Reports no additional eye complaints Reports system reviewed and no additional complaints, except as documented Cardiovascular: Reports as per HPI and Reports no additional cardiovascular complaints Respiratory: Reports as per HPI and Reports no additional respiratory complaints Gastrointestinal: Reports as per HPI and Reports no additional gastrointestinal complaints Genitourinary: Reports no additional female genitourinary complaints Musculoskeletal: Reports no additional musculoskeletal complaints Skin/Breast: Reports system reviewed and no additional complaints, except as docu Psychiatric: Reports no additional psychiatric complaints Endocrine: Reports no additional endocrine complaints Hematologic/Lymphatic: Reports no additional hematologic/lymphatic complaints Allergic/Immunologic: Reports no additional allergic/immunologic complaints Reports system reviewed and no additional complaints, except as documented and Reports Abnormal speech present [facility] Past Medical History Medical History Depression High blood pressure High cholesterol Social History Social History Alcohol intake: current Smoked in Last 30 Days: No Use of substances other than those prescribed or required for medical reasons: No Advance Directives: No Advance Directives Information Provided: No Current occupational status: retired and disabled 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 Blood pressure normal. Heart rate normal. Respiration rate normal. Temperature normal. Oxygen saturation normal. Appearance: Alert. Oriented X3, GCS 15. No acute distress. Head: Normal external exam. Normocephalic. Atraumatic. No Salvador signs noted. No raccoon eyes noted Eyes: PERRLA. EOMI. Conjunctiva and sclera normal. Eyelids normal. ENT: TM's Normal. Pharynx normal. Uvula midline. Moist mucous membranes. No trismus noted. No drooling noted. No muffled voice noted. Neck: Normal inspection. Neck supple. FROM. No adenopathy. Thyroid Normal. No meningeal signs. No neck mass noted. CVS: Normal heart rate and rhythm. Heart sound normal. No murmurs noted. Pulses normal throughout. Respiratory: No respiratory distress. Painless inspiration. Breath sounds normal. No wheezes/rales/rhonchi noted. Chest nontender. No accessory muscle usage noted or decreased air movement noted. Abdomen: Soft and nontender. Bowel sounds normal in all 4 quadrants. No distention noted. No organomegaly noted. No visible injury noted. Back: No CVA tenderness. Full range of motion noted. Skin: Skin warm and dry. Normal skin color. Normal skin turgor. No rashes/lesions/lacerations noted. Extremities: No lower extremity edema. Extremities exhibit normal range of motion. Extremities nontender. Neuro: Oriented X 3, GCS 15 Cranial nerve exam: II-XII are grossly intact No motor deficit. No sensory deficit. Reflexes normal. Course Course Course Narrative: 77-year-old female chronic alcohol abuse unwitnessed fall in the bathroom while she was intoxicated has small scalp laceration, patient was GCS of 15 and normal neuro exam with unremarkable CT of the head. Patient now is AAO x3, able to ambulate in a steady gait. With a GCS of 15. Small laceration in the right occipital area with no bleeding no need for laceration repair. Patient will be discharged with daughter who is sober. Medical Decision Making Differential Diagnosis Differential Diagnoses: The differential diagnosis associated with the presentation includes (Alcohol intoxication, mechanical fall, cardiac event/ACS, intracranial bleed, complicated scalp laceration, electrolyte disturbance, anemia, UTI.) Lab Data MDM Lab Attestation statement: I reviewed the patient's lab results. 09/25/22 23:39 09/25/22 23:39 Labs: Lab Results 09/25/22 09/25/22 09/25/22 Range/Units 23:15 23:39 23:39 WBC 7.2 (4.8-10.8) X10*3/uL RBC 4.40 (4.20-5.50) X10*6/uL Hgb 13.0 (12.0-16.0) g/dl Hct 38.5 (37.0-47.0) % MCV 87.5 (80.0-98.0) fL MCH 29.5 (27.0-33.0) pg MCHC 33.8 (31.0-35.0) g/dl RDW 13.3 (11.0-16.0) % Plt Count 248 (160-400) X10*3/uL MPV 9.4 (9.4-12.3) fL Immature Gran % (Auto) 0.3 (0.0-0.4) % Neut % (Auto) 52.8 (45-73) % Lymph % (Auto) 34.4 (20-40) % [place] % (Auto) 8.3 (2-11) % Eos % (Auto) 3.6 (0-4) % Baso % (Auto) 0.6 (0-2) % Lymph # (Auto) 2.5 (1.2-4.9) X10*3/uL [place] # (Auto) 0.6 (0.1-1.2) X10*3/uL Eos # (Auto) 0.3 (0.0-0.4) X10*3/uL Baso # (Auto) 0.0 (0.0-0.2) X10*3/uL Abs Immat Gran (auto) 0.02 (0.00-0.03) X10*3/uL Absolute Neuts (auto) 3.8 (2.0-8.3) x10*3/uL Absolute Nucleated RBC 0.000 (0.0-0.012) X10*3/uL Nucleated RBC % (auto) 0.0 (0.0-0.2) /100WBC Sodium 139 (135-145) mmol/L Potassium 3.9 (3.3-5.1) mmol/L Chloride 106 (96-108) mmol/L Carbon Dioxide 23 (22-29) mmol/L Anion Gap 14 (12-20) BUN 11 (9-16) mg/dL Creatinine 0.78 (0.5-1.4) mg/dL Estim Creat Clear Calc 49.1 Estimated GFR > 60 Random Glucose 89 (60-115) mg/dL Calcium 9.3 (8.4-10.2) mg/dL Total Bilirubin 0.4 (0.0-1.0) mg/dL Direct Bilirubin < 0.2 (0.0-0.5) mg/dL AST 33 H (5-31) U/L ALT 30 (0-31) U/L Alkaline Phosphatase 88 (39-117) U/L Troponin I High Sens (<3.5-17.0) ng/L Total Protein 7.4 (6.5-8.0) g/dL Albumin 4.4 (3.5-5.0) g/dL Lipase 41 (8-78) U/L Urine Color Yellow Urine Appearance Clear Urine pH 5.5 (5.0-9.0) Ur Specific [place] <= 1.005 (1.005-1.025) Urine Protein Negative (Neg-Trace) mg/dL Urine Glucose (UA) Negative (Negative) mg/dL Urine Ketones Negative (Negative) mg/dL Urine Blood Negative (Negative) Urine Nitrite Negative (Negative) Ur Leukocyte Esterase Small (1+) H (Negative) Urine RBC 0-2 (0-2) /HPF Urine WBC 0-5 (0-5) /HPF Ur Squamous Epith Cells 0-2 (0-2) /HPF Urine Bacteria 1+ (None Seen) Hyaline Casts 0-2 (0-2) /LPF Ethyl Alcohol 292 mg/dL 09/25/22 Range/Units 23:39 WBC (4.8-10.8) X10*3/uL RBC (4.20-5.50) X10*6/uL Hgb (12.0-16.0) g/dl Hct (37.0-47.0) % MCV (80.0-98.0) fL MCH (27.0-33.0) pg MCHC (31.0-35.0) g/dl RDW (11.0-16.0) % Plt Count (160-400) X10*3/uL MPV (9.4-12.3) fL Immature Gran % (Auto) (0.0-0.4) % Neut % (Auto) (45-73) % Lymph % (Auto) (20-40) % [place] % (Auto) (2-11) % Eos % (Auto) (0-4) % Baso % (Auto) (0-2) % Lymph # (Auto) (1.2-4.9) X10*3/uL [place] # (Auto) (0.1-1.2) X10*3/uL Eos # (Auto) (0.0-0.4) X10*3/uL Baso # (Auto) (0.0-0.2) X10*3/uL Abs Immat Gran (auto) (0.00-0.03) X10*3/uL Absolute Neuts (auto) (2.0-8.3) x10*3/uL Absolute Nucleated RBC (0.0-0.012) X10*3/uL Nucleated RBC % (auto) (0.0-0.2) /100WBC Sodium (135-145) mmol/L Potassium (3.3-5.1) mmol/L Chloride (96-108) mmol/L Carbon Dioxide (22-29) mmol/L Anion Gap (12-20) BUN (9-16) mg/dL Creatinine (0.5-1.4) mg/dL Estim Creat Clear Calc Estimated GFR Random Glucose (60-115) mg/dL Calcium (8.4-10.2) mg/dL Total Bilirubin (0.0-1.0) mg/dL Direct Bilirubin (0.0-0.5) mg/dL AST (5-31) U/L ALT (0-31) U/L Alkaline Phosphatase (39-117) U/L Troponin I High Sens < 3.5 (<3.5-17.0) ng/L Total Protein (6.5-8.0) g/dL Albumin (3.5-5.0) g/dL Lipase (8-78) U/L Urine Color Urine Appearance Urine pH (5.0-9.0) Ur Specific [place] (1.005-1.025) Urine Protein (Neg-Trace) mg/dL Urine Glucose (UA) (Negative) mg/dL Urine Ketones (Negative) mg/dL Urine Blood (Negative) Urine Nitrite (Negative) Ur Leukocyte Esterase (Negative) Urine RBC (0-2) /HPF Urine WBC (0-5) /HPF Ur Squamous Epith Cells (0-2) /HPF Urine Bacteria (None Seen) Hyaline Casts (0-2) /LPF Ethyl Alcohol mg/dL Independent Interpretation I performed an independent interpretation of an: EKG (Normal sinus rhythm at 78 beats per minutes, normal axis deviation, normal intervals, no ST-T changes. ), Plain X-Ray (Chest: No acute intra thoracic pathology.) and CT Scan (Head: No acute intracranial pathology) Interpretation: CT cervical spine: No acute fracture subluxation. Radiology Impression Discussion of test interpretation with radiology: I have reviewed the radiologist's reading. Discharge Plan Discharge Clinical Impression: Alcohol intoxication, Closed head injury, Laceration of scalp Patient Disposition: Home, Self-Care Instructions: Head Injury (ED) Prescriptions: No Action acetaminophen [Tylenol Arthritis Pain] 650 mg tablet extended release 650 mg PO Q8H PRN (Reason: pain) Qty: 30 0RF lidocaine [Lidoderm] 5 % adhesive patch,medicated 1 patch topical DAILY Qty: 15 0RF Rx Instructions: leave on most painful area for up to 12 hrs atorvastatin 80 mg tablet 80 mg PO DAILY omeprazole 20 mg capsule,delayed release(DR/EC) 20 mg PO DAILY cyanocobalamin (vitamin B-12) 1,000 mcg tablet 1,000 mcg PO DAILY losartan 100 mg tablet 0 mg PO amlodipine 10 mg tablet 10 mg PO DAILY
[2022-09-25 23:41] LABS: Bacteria Urine 1+ (None Seen); Hyaline Casts Urine 0-2 /LPF (0-2); RBC Urine 0-2 /HPF (0-2); Squamous Epithelial Cell Urine 0-2 /HPF (0-2); UACC Culture Trigger YES; WBC Urine 0-5 /HPF (0-5)
[2022-09-25 23:43] LABS: MANUAL DIFF FLAG NO
[2022-09-25 23:46] LABS: Basophils Percent Auto 0.6 % (0-2); Eosinophils Absolute Auto 0.3 X10*3/uL (0.0-0.4); Eosinophils Percent Auto 3.6 % (0-4); Hematocrit 38.5 % (37.0-47.0); Imm Gran Abs Auto 0.02 X10*3/uL (0.00-0.03); Imm Gran Pct Auto 0.3 % (0.0-0.4); Lymphocytes Absolute Auto 2.5 X10*3/uL (1.2-4.9); Lymphocytes Percent Auto 34.4 % (20-40); Mean Corpuscular HGB Conc 33.8 g/dl (31.0-35.0); Mean Corpuscular Hemoglobin 29.5 pg (27.0-33.0); Mean Corpuscular Volume 87.5 fL (80.0-98.0); Mean Platelet Volume 9.4 fL (9.4-12.3); Monocytes Absolute Auto 0.6 X10*3/uL (0.1-1.2); Monocytes Percent Auto 8.3 % (2-11); Neutrophils Absolute Auto 3.8 x10*3/uL (2.0-8.3); Neutrophils Percent Auto 52.8 % (45-73); Platelet Count 248 X10*3/uL (160-400); Red Cell Distribution Width 13.3 % (11.0-16.0); White Blood Count 7.2 X10*3/uL (4.8-10.8)
[2022-09-25 23:58] VITALS: BP 134/68; PULSE 74; RESP 16; TEMP 36.7; O2SAT 98
--- NOTE | 2022-09-25 23:59 | MHC.EDTECH ---
this pct assumed care of pt at 0000 ,pt vitals sign taken ,pt ekg done ,pt was change into hospital attire ,,warm blanket and pillow given ,pt is resting quietly ,pt daughter at bedside .
[2022-09-26 00:02] LABS: Alanine Aminotransferase 30 U/L (0-31); Albumin Level 4.4 g/dL (3.5-5.0); Alkaline Phosphatase 88 U/L (39-117); Anion Gap 14 (12-20); Aspartate Amino Transferase 33 U/L (5-31); Bilirubin Direct < 0.2 mg/dL (0.0-0.5); Bilirubin Total 0.4 mg/dL (0.0-1.0); Blood Urea Nitrogen 11 mg/dL (9-16); Calcium 9.3 mg/dL (8.4-10.2); Carbon Dioxide 23 mmol/L (22-29); Chloride 106 mmol/L (96-108); Creatinine Clr Calc Pharmacy 49.1; Estimated Glomerular Filt Rate > 60; Glucose Random 89 mg/dL (60-115); Lipase 41 U/L (8-78); Potassium 3.9 mmol/L (3.3-5.1); Sodium 139 mmol/L (135-145); Total Protein 7.4 g/dL (6.5-8.0)
[2022-09-26 00:08] LABS: Troponin-I High Sensitivity < 3.5 ng/L (<3.5-17.0)
--- NOTE | 2022-09-26 00:50 | MHC.EDTECH ---
pt was assisted unto bed contreras ,pt voided lg amount of urine ,care given .
[2022-09-26 01:22] LABS: Ethanol 292 mg/dL
[2022-09-26 01:55] VITALS: BP 101/51; PULSE 87; RESP 16; TEMP 36.6; O2SAT 98
== END 2022-09-26 02:04 | disposition home or self-care (01) ==
PROVIDERS: Emergency Provider Emergency Medicine
DX: F10.220 Alcohol dependence with intoxication, uncomplicated (principal); Y90.8 Blood alcohol level of 240 mg/100 ml or more; S09.90XA Unspecified injury of head, initial encounter; S01.01XA Laceration without foreign body of scalp, initial encounter; W10.8XXA Fall (on) (from) other stairs and steps, initial encounter; Y93.89 Activity, other specified; Y92.038 Other place in apartment as the place of occurrence of the external cause; Y99.9 Unspecified external cause status; Z79.899 Other long term (current) drug therapy; E78.5 Hyperlipidemia, unspecified; I10 Essential (primary) hypertension; Z79.02 Long term (current) use of antithrombotics/antiplatelets
CPT/HCPCS: 36415; 70450; 71045; 72125; 80048; 80076; 81001; 82077; 83690; 84484; 85025; 87086; 87088; 87186; 93005; 99284; 99285

== ENCOUNTER 2022-11-16 13:26 | Outpatient (REF) | payer OTHER, SELFPAY ==
[2022-11-16 13:38] LABS: MANUAL DIFF FLAG NO
[2022-11-16 14:24] LABS: Basophils Percent Auto 0.4 % (0-2); Eosinophils Absolute Auto 0.2 X10*3/uL (0.0-0.4); Eosinophils Percent Auto 1.9 % (0-4); Hematocrit 37.6 % (37.0-47.0); Hemoglobin 12.7 g/dl (12.0-16.0); Imm Gran Abs Auto 0.04 X10*3/uL (0.00-0.03); Imm Gran Pct Auto 0.5 % (0.0-0.4); Lymphocytes Absolute Auto 1.4 X10*3/uL (1.2-4.9); Mean Corpuscular HGB Conc 33.8 g/dl (31.0-35.0); Mean Corpuscular Hemoglobin 29.5 pg (27.0-33.0); Mean Corpuscular Volume 87.2 fL (80.0-98.0); Mean Platelet Volume 9.8 fL (9.4-12.3); Monocytes Absolute Auto 0.6 X10*3/uL (0.1-1.2); Monocytes Percent Auto 7.8 % (2-11); Neutrophils Absolute Auto 5.8 x10*3/uL (2.0-8.3); Neutrophils Percent Auto 72.4 % (45-73); Platelet Count 263 X10*3/uL (160-400); Red Blood Count 4.31 X10*6/uL (4.20-5.50); Red Cell Distribution Width 13.2 % (11.0-16.0); White Blood Count 7.9 X10*3/uL (4.8-10.8)
[2022-11-16 14:56] LABS: Alanine Aminotransferase 39 U/L (0-31); Albumin Level 4.6 g/dL (3.5-5.0); Alkaline Phosphatase 84 U/L (39-117); Anion Gap 16 (12-20); Aspartate Amino Transferase 48 U/L (5-31); Bilirubin Total 0.6 mg/dL (0.0-1.0); Blood Urea Nitrogen 9 mg/dL (9-16); Calcium 9.9 mg/dL (8.4-10.2); Carbon Dioxide 19 mmol/L (22-29); Chloride 110 mmol/L (96-108); Estimated Glomerular Filt Rate > 60; Glucose Random 77 mg/dL (60-115); Potassium 3.5 mmol/L (3.3-5.1); Sodium 141 mmol/L (135-145); Total Protein 7.8 g/dL (6.5-8.0)
== END 2022-11-16 13:27 | disposition home or self-care (01) ==
LOC: HO.LAB 13:26
PROVIDERS: PCP Internal Medicine; Visit Provider Internal Medicine
DX: Z00.00 Encounter for general adult medical examination without abnormal findings (principal); E55.9 Vitamin D deficiency, unspecified; E78.00 Pure hypercholesterolemia, unspecified; M81.8 Other osteoporosis without current pathological fracture
CPT/HCPCS: 36415; 80053; 85025

== ENCOUNTER 2023-01-24 10:49 | Emergency (ER) | payer OTHER, SELFPAY ==
--- NOTE | ~2023-01-24 | CT_ITS ---
EXAMINATION: CT HEAD WITHOUT CONTRAST CLINICAL INFORMATION: Altered mental status history of EtOH and falls COMPARISON: CT head from 09/26/2022 TECHNIQUE: Contiguous axial imaging was performed from the skull base to vertex without intravenous administration of contrast. This CT examination was performed using dose optimization techniques as appropriate, variously including the following: *Automated exposure control *Adjustment of mA and/or kV according to patient size (this includes techniques or standardized protocols for targeted exams where dose is matched to indication/reason for exam; i.e. extremities or head) *Use of iterative reconstruction technique DLP: 565 mGy-cm FINDINGS: There is no evidence of acute intracranial hemorrhage or territorial infarction. Chronic white matter small vessel ischemic changes. Cerebral atrophy with commensurate ventricular changes. No abnormal mass effect or midline shift is seen. [place] to white matter differentiation is well preserved. No extra-axial fluid collections are identified. The ventricles are normal in size. There is no abnormal attenuation within the brain parenchyma. The osseous structures and soft tissues are normal. The mastoid air cells and visualized portions of the paranasal sinuses are well aerated. Vertebrobasilar atherosclerotic calcifications. CT/CT head/brain wo IV con IMPRESSION: 1. No acute intracranial pathology. 2. Chronic white matter small vessel ischemic changes.
[2023-01-24 10:53] VITALS: BP 175/86; PULSE 124; RESP 17; TEMP 36.4; O2SAT 95; BMI 22.5
--- NOTE | 2023-01-24 11:16 | ECG_ITS ---
Test Reason : ams Blood Pressure : / mmHG Vent. Rate : 124 BPM Atrial Rate : 124 BPM P-R Int : 134 ms QRS Dur : 094 ms QT Int : 326 ms P-R-T Axes : 050 017 060 degrees QTc Int : 468 ms Sinus tachycardia Possible Left atrial enlargement Minimal voltage criteria for LVH, may be normal variant ( [place] product ) Nonspecific ST abnormality Abnormal ECG When compared with ECG of 25-SEP-2022 23:52, Vent. rate has increased BY 46 BPM Referred By: Diana Fish Electronically Signed By:MARRY NEAL
[2023-01-24 11:20] VITALS: BP 184/82; PULSE 122; RESP 18; TEMP 36.6; O2SAT 98
--- NOTE | 2023-01-24 11:43 | ED.GENADULT ---
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 Patient's daughter is concerned because she feels like her mother may be developing dementia but also continues to drink alcohol. Patient's daughter says that she called crisis and was told to go to the ER. Daughter also reports that her mother has decreased oral intake. On speaking with mother she accurately describes the year, location, and endorses that she in fact does feel depressed and does have thoughts of wanting to harm herself but states that she would never follow through. Daughter also has concerns about patient's frequent falls. Related Data Home Medications Medication Instructions Recorded Confirmed amlodipine 10 mg tablet 10 mg PO DAILY 04/08/22 atorvastatin 80 mg tablet 80 mg PO DAILY 04/08/22 cyanocobalamin (vitamin B-12) 1,000 mcg PO DAILY 04/08/22 1,000 mcg tablet losartan 100 mg tablet 0 mg PO 04/08/22 omeprazole 20 mg capsule,delayed 20 mg PO DAILY 04/08/22 release Previous Rx's Medication Instructions Recorded acetaminophen 650 mg 650 mg PO Q8H PRN pain #30 tabs 06/05/20 tablet,extended release (Tylenol Arthritis Pain) lidocaine 5 % topical patch 1 patch topical DAILY #15 ea 06/05/20 (Lidoderm) cephalexin 500 mg capsule 500 mg PO Q6H 7 days #28 caps 09/30/22 cefdinir 300 mg capsule 300 mg PO BID 7 days #14 caps 01/24/23 Allergies Allergy/AdvReac Type Severity Reaction Status Date / Time ibuprofen [From Motrin] Allergy Swelling Verified 01/24/23 10:58 Review of Systems Review of Systems: Pertinent positives and negatives as stated in HPI [facility] Past Medical History Source: nursing notes reviewed Medical History Depression High blood pressure High cholesterol Surgical History H/O: hysterectomy Social History Social History Alcohol intake: current Alcohol intake frequency: a few times a week Alcohol type: beer Smoked in Last 30 Days: Yes Use of substances other than those prescribed or required for medical reasons: No Advance Directives: No Advance Directives Information Provided: Yes Current occupational status: retired and disabled 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 GENERAL: Elderly, chronic medical conditions, in no acute distress. HEAD: Normocephalic/atraumatic EYES: PERRLA, EOMI EARS: Ext canals without abnormality NOSE: Nares patent bilateral OROPHARYNX: no oral lesions noted, posterior pharynx clear NECK: Supple, no adenopathy LUNGS: Normal breath sounds. No adventitious sounds or accessory muscle use. SpO2<98> CARDIOVASCULAR: Regular rate and rhythm without noted murmurs, no JVD or lower extremity edema. ABDOMEN: Soft, non-tender, non-distended with bowel sounds. MUSCULOSKELETAL: No tenderness, deformities, or effusions noted on gross inspection. EXTREMITIES: No cyanosis, clubbing or edema. SKIN: Inspection of the skin reveals no rashes NEUROLOGIC: Alert and oriented x 3. Strength and sensation to light touch were grossly intact x 4, no facial asymmetry, no pronator drift, cranial nerves 2-12 are grossly intact. Medications Administered Discontinued Medications Generic Name Dose Route Start Last Admin Trade Name Freq PRN Reason Stop Dose Admin Amoxicillin/Clavulanate Potassium 875 mg 01/24/23 14:48 01/24/23 15:46 Amoxicillin/Potassium Clav 875 Mg Tablet PO 01/24/23 14:49 875 mg ONCE ONE Administration Medical Decision Making Medical Decision Making MDM Narrative: 77-year-old female with history and clinical presentation, DDX: Alcohol use disorder, dementia, no focal findings to suggest ischemic brain injury, dehydration, depression with suicidal statements. I held a discussion with the patient who said that she will stop drinking alcohol she denies any severe withdrawal symptoms in the past. I reviewed all investigations and hematologic indices are negative for leukocytosis, anemia, thrombocytopenia but there is a noted mild left shift of unclear significance. Coagulation studies demonstrate an INR within normal limits. Chemistry studies are negative for electrolyte or liver enzyme abnormalities, there is no HARSH. Troponin level is undetectable. CT of the head, noncontrast, negative for intracranial bleed and otherwise my interpretation is in agreement with radiology's impression. BAL-undetected 1601: Evaluated and patient scored 9/15 on BIMS and CARE Team to make urgent outpatient referral to [facility]. Differential Diagnosis Differential Diagnoses: The differential diagnosis associated with the presentation includes Please see the discussion above Admission/Observation Consideration of admission/observation: Escalation of care including admission/observation considered Please see the discussion above Lab Data MDM Lab Attestation statement: I reviewed the patient's lab results. Please see the discussion above 01/24/23 12:16 01/24/23 12:16 Labs: Lab Results 01/24/23 01/24/23 01/24/23 Range/Units 12:16 12:16 12:16 WBC 7.6 (4.8-10.8) X10*3/uL RBC 4.31 (4.20-5.50) X10*6/uL Hgb 12.7 (12.0-16.0) g/dl Hct 37.7 (37.0-47.0) % MCV 87.5 (80.0-98.0) fL MCH 29.5 (27.0-33.0) pg MCHC 33.7 (31.0-35.0) g/dl RDW 12.8 (11.0-16.0) % Plt Count 249 (160-400) X10*3/uL MPV 9.4 (9.4-12.3) fL Immature Gran % (Auto) 0.3 (0.0-0.4) % Neut % (Auto) 74.9 H (45-73) % Lymph % (Auto) 15.9 L (20-40) % [place] % (Auto) 6.3 (2-11) % Eos % (Auto) 2.1 (0-4) % Baso % (Auto) 0.5 (0-2) % Lymph # (Auto) 1.2 (1.2-4.9) X10*3/uL [place] # (Auto) 0.5 (0.1-1.2) X10*3/uL Eos # (Auto) 0.2 (0.0-0.4) X10*3/uL Baso # (Auto) 0.0 (0.0-0.2) X10*3/uL Abs Immat Gran (auto) 0.02 (0.00-0.03) X10*3/uL Absolute Neuts (auto) 5.7 (2.0-8.3) x10*3/uL Absolute Nucleated RBC 0.000 (0.0-0.012) X10*3/uL Nucleated RBC % (auto) 0.0 (0.0-0.2) /100WBC PT 10.4 L (11.1-13.3) SEC INR 0.9 (0.9-1.1) Sodium 139 (135-145) mmol/L Potassium 3.3 (3.3-5.1) mmol/L Chloride 108 (96-108) mmol/L Carbon Dioxide 19 L (22-29) mmol/L Anion Gap 15 (12-20) BUN 10 (9-16) mg/dL Creatinine 0.72 (0.5-1.4) mg/dL Estim Creat Clear Calc 48.5 Estimated GFR > 60 Random Glucose 123 H (60-115) mg/dL Lactic Acid (0.5-2.0) mmol/L Calcium 9.6 (8.4-10.2) mg/dL Total Bilirubin 0.3 (0.0-1.0) mg/dL AST 20 (5-31) U/L ALT 20 (0-31) U/L Alkaline Phosphatase 66 (39-117) U/L Troponin I High Sens (<3.5-17.0) ng/L Total Protein 7.2 (6.5-8.0) g/dL Albumin 4.1 (3.5-5.0) g/dL Urine Color Urine Appearance Urine pH (5.0-9.0) Ur Specific [place] (1.005-1.025) Urine Protein (Neg-Trace) mg/dL Urine Glucose (UA) (Negative) mg/dL Urine Ketones (Negative) mg/dL Urine Blood (Negative) Urine Nitrite (Negative) Ur Leukocyte Esterase (Negative) Urine RBC (0-2) /HPF Urine WBC (0-5) /HPF Ur Squamous Epith Cells (0-2) /HPF Urine Bacteria (None Seen) Hyaline Casts (0-2) /LPF Ethyl Alcohol < 10 mg/dL 01/24/23 01/24/23 01/24/23 Range/Units 12:16 12:16 14:38 WBC (4.8-10.8) X10*3/uL RBC (4.20-5.50) X10*6/uL Hgb (12.0-16.0) g/dl Hct (37.0-47.0) % MCV (80.0-98.0) fL MCH (27.0-33.0) pg MCHC (31.0-35.0) g/dl RDW (11.0-16.0) % Plt Count (160-400) X10*3/uL MPV (9.4-12.3) fL Immature Gran % (Auto) (0.0-0.4) % Neut % (Auto) (45-73) % Lymph % (Auto) (20-40) % [place] % (Auto) (2-11) % Eos % (Auto) (0-4) % Baso % (Auto) (0-2) % Lymph # (Auto) (1.2-4.9) X10*3/uL [place] # (Auto) (0.1-1.2) X10*3/uL Eos # (Auto) (0.0-0.4) X10*3/uL Baso # (Auto) (0.0-0.2) X10*3/uL Abs Immat Gran (auto) (0.00-0.03) X10*3/uL Absolute Neuts (auto) (2.0-8.3) x10*3/uL Absolute Nucleated RBC (0.0-0.012) X10*3/uL Nucleated RBC % (auto) (0.0-0.2) /100WBC PT (11.1-13.3) SEC INR (0.9-1.1) Sodium (135-145) mmol/L Potassium (3.3-5.1) mmol/L Chloride (96-108) mmol/L Carbon Dioxide (22-29) mmol/L Anion Gap (12-20) BUN (9-16) mg/dL Creatinine (0.5-1.4) mg/dL Estim Creat Clear Calc Estimated GFR Random Glucose (60-115) mg/dL Lactic Acid 1.5 (0.5-2.0) mmol/L Calcium (8.4-10.2) mg/dL Total Bilirubin (0.0-1.0) mg/dL AST (5-31) U/L ALT (0-31) U/L Alkaline Phosphatase (39-117) U/L Troponin I High Sens < 2.7 (<3.5-17.0) ng/L Total Protein (6.5-8.0) g/dL Albumin (3.5-5.0) g/dL Urine Color Yellow Urine Appearance Clear Urine pH 5.5 (5.0-9.0) Ur Specific [place] 1.010 (1.005-1.025) Urine Protein Negative (Neg-Trace) mg/dL Urine Glucose (UA) Negative (Negative) mg/dL Urine Ketones Negative (Negative) mg/dL Urine Blood Negative (Negative) Urine Nitrite Positive H (Negative) Ur Leukocyte Esterase Moderate (2+) H (Negative) Urine RBC 0-2 (0-2) /HPF Urine WBC 21-50 H (0-5) /HPF Ur Squamous Epith Cells 0-2 (0-2) /HPF Urine Bacteria 4+ (None Seen) Hyaline Casts 0-2 (0-2) /LPF Ethyl Alcohol mg/dL Independent Interpretation I performed an independent interpretation of an: EKG Interpretation: Sinus tachycardia, HR-124, no STEMI, MI/QRS/QTC is within normal limits. Radiology Impression Radiologist Impression: No intracranial hemorrhage, otherwise my interpretation is in agreement with radiology's impression. External Record Review External record reviewed: Outpatient record and Prior outpatient labs Chronic Conditions Patient?s care impacted by: Hypertension and Other Alcohol use disorder, dementia Critical Care Time Critical Care Time Critical Care Time: Yes Total Critical Care Time: 30 Attestation: I personally attest to this time spent taking care of the patient. Discharge Plan Discharge Clinical Impression: Alcohol use disorder, Dementia, Acute UTI Patient Disposition: Home, Self-Care Instructions: Dementia (ED), Urinary Tract Infection in Older Adults (ED) Additional Instructions: 1. Reanudar todos los medicamentos caseros seg?n lo prescrito. 2. Complete todo el curso de antibi?ticos seg?n lo prescrito. 3. Seguimiento con el proveedor de atenci?n primaria el lunes por la ma?. Regrese a la neisha de emergencias si los s?ntomas empeoran. 1. Resume all home medications as prescribed. 2. Complete the entire course of antibiotics as prescribed. 3. Follow-up with the primary care provider on Wednesday. Return to the ER for any worsening symptoms. Prescriptions: New cefdinir 300 mg capsule 300 mg PO BID 7 Days Qty: 14 0RF No Action acetaminophen [Tylenol Arthritis Pain] 650 mg tablet extended release 650 mg PO Q8H PRN (Reason: pain) Qty: 30 0RF lidocaine [Lidoderm] 5 % adhesive patch,medicated 1 patch topical DAILY Qty: 15 0RF Rx Instructions: leave on most painful area for up to 12 hrs cephalexin 500 mg capsule 500 mg PO Q6H 7 Days Qty: 28 0RF atorvastatin 80 mg tablet 80 mg PO DAILY omeprazole 20 mg capsule,delayed release(DR/EC) 20 mg PO DAILY cyanocobalamin (vitamin B-12) 1,000 mcg tablet 1,000 mcg PO DAILY losartan 100 mg tablet 0 mg PO amlodipine 10 mg tablet 10 mg PO DAILY Referrals: Piper Eagle MD [Primary Care Provider] - Print Language: Tajik
[2023-01-24 12:28] LABS: Basophils Percent Auto 0.5 % (0-2); Eosinophils Absolute Auto 0.2 X10*3/uL (0.0-0.4); Eosinophils Percent Auto 2.1 % (0-4); Hematocrit 37.7 % (37.0-47.0); Hemoglobin 12.7 g/dl (12.0-16.0); Imm Gran Abs Auto 0.02 X10*3/uL (0.00-0.03); Imm Gran Pct Auto 0.3 % (0.0-0.4); Lymphocytes Absolute Auto 1.2 X10*3/uL (1.2-4.9); Lymphocytes Percent Auto 15.9 % (20-40); MANUAL DIFF FLAG NO; Mean Corpuscular HGB Conc 33.7 g/dl (31.0-35.0); Mean Corpuscular Hemoglobin 29.5 pg (27.0-33.0); Mean Corpuscular Volume 87.5 fL (80.0-98.0); Mean Platelet Volume 9.4 fL (9.4-12.3); Monocytes Absolute Auto 0.5 X10*3/uL (0.1-1.2); Monocytes Percent Auto 6.3 % (2-11); Neutrophils Absolute Auto 5.7 x10*3/uL (2.0-8.3); Neutrophils Percent Auto 74.9 % (45-73); Platelet Count 249 X10*3/uL (160-400); Red Blood Count 4.31 X10*6/uL (4.20-5.50); Red Cell Distribution Width 12.8 % (11.0-16.0); White Blood Count 7.6 X10*3/uL (4.8-10.8)
[2023-01-24 12:35] LABS: INTERNATIONAL NORM RATIO 0.9 (0.9-1.1); Prothrombin Time 10.4 SEC (11.1-13.3)
[2023-01-24 13:05] LABS: Alanine Aminotransferase 20 U/L (0-31); Albumin Level 4.1 g/dL (3.5-5.0); Alkaline Phosphatase 66 U/L (39-117); Anion Gap 15 (12-20); Aspartate Amino Transferase 20 U/L (5-31); Bilirubin Total 0.3 mg/dL (0.0-1.0); Blood Urea Nitrogen 10 mg/dL (9-16); Calcium 9.6 mg/dL (8.4-10.2); Carbon Dioxide 19 mmol/L (22-29); Chloride 108 mmol/L (96-108); Creatinine Clr Calc Pharmacy 48.5; Estimated Glomerular Filt Rate > 60; Ethanol < 10 mg/dL; Glucose Random 123 mg/dL (60-115); Lactic Acid 1.5 mmol/L (0.5-2.0); Potassium 3.3 mmol/L (3.3-5.1); Sodium 139 mmol/L (135-145); Total Protein 7.2 g/dL (6.5-8.0); Troponin-I High Sensitivity < 2.7 ng/L (<3.5-17.0)
[2023-01-24 13:41] VITALS: BP 134/114; PULSE 115; RESP 18; O2SAT 98
--- NOTE | 2023-01-24 13:50 | PC.NURSE ---
pt a&ox3, vss aside from tachycardia, pt constantly tachy so thrown on cardiac rehabilitation program director - sinus tachycardia displaying on the monitor. pt verbalizing 0/10 pain. CIWA scale completed = 0. will notify provider. sitter and family member present bedside. call [place] placed within reach. will continue to monitor.
--- NOTE | 2023-01-24 14:33 | PC.NURSE ---
tech in room obtaining urine sample and sending to lab.
[2023-01-24 14:43] LABS: Appearance Urine Clear; Color Urine Yellow; Glucose Urine UA Negative (Negative); Leukocyte Esterase Urine Moderate (2+) (Negative); Nitrite Urine Positive (Negative); PH 5.5 (5.0-9.0); UMIC TRIGGER UACC YES; Urine Blood Negative (Negative); Urine Ketones Negative (Negative); Urine Protein Negative (Neg-Trace)
[2023-01-24 14:47] LABS: Bacteria Urine 4+ (None Seen); Hyaline Casts Urine 0-2 /LPF (0-2); RBC Urine 0-2 /HPF (0-2); Squamous Epithelial Cell Urine 0-2 /HPF (0-2); UACC Culture Trigger YES; WBC Urine 21-50 /HPF (0-5)
[2023-01-24 15:40] VITALS: BP 178/98; PULSE 108; RESP 18; TEMP 36.9; O2SAT 98
[2023-01-24] MEDS: Amoxicillin/Potassium Clav 875 MG TABLET PO (15:46)
--- NOTE | 2023-01-24 15:47 | PC.NURSE ---
pt a&ox3, vss aside from hypertension, sinus tachy on the special effects designer. case management and turf and grounds supervisor bedside with sitter and pt's family member. medication administered per provider order. pt verbalizing an increase in back pain at an 8/10. pain verbalizes that she has had the back pain since this morning but did not state anything. will notify provider.
== END 2023-01-24 16:44 | disposition home or self-care (01) ==
PROVIDERS: Emergency Provider Student in an Organized Health Care Education/Training Program; PCP Internal Medicine
DX: F03.90 Unspecified dementia, unspecified severity, without behavioral disturbance, psychotic disturbance, mood disturbance, and anxiety (principal); N39.0 Urinary tract infection, site not specified; F10.10 Alcohol abuse, uncomplicated; F41.1 Generalized anxiety disorder; F43.0 Acute stress reaction; Y90.9 Presence of alcohol in blood, level not specified; Z79.899 Other long term (current) drug therapy
CPT/HCPCS: 36415; 70450; 80053; 80307; 81001; 83605; 84484; 85025; 85610; 87040; 87086; 87088; 87186; 93005; 99284; 99285; S9485

== ENCOUNTER → 2023-01-24 11:16 | Outpatient (BNV) | payer OTHER, SELFPAY | PROVIDERS: Emergency Provider Student in an Organized Health Care Education/Training Program; PCP Internal Medicine; Visit Provider Internal Medicine | DX: R00.0 Tachycardia, unspecified (principal); R94.31 Abnormal electrocardiogram [ECG] [EKG] | CPT/HCPCS: 93010 ==

== ENCOUNTER 2023-01-26 19:50 | Inpatient (IN) | payer OTHER, SELFPAY ==
[2023-01-26 19:57] VITALS: BP 191/92; PULSE 81; RESP 17; TEMP 36.5; O2SAT 96; BMI 21.5
--- NOTE | 2023-01-26 20:15 | PHA.MEDREC ---
Pharmacy Consult ? Medication Reconciliation Pharmacy has reviewed the medication reconciliation completed by Alphonse. Humaira Stockton, DaisyD
--- NOTE | 2023-01-26 20:31 | ED_ITS ---
HPI - Psych General Chief Complaint: Psychiatric Symptoms Stated Complaint: Si w/ plan Time Seen by Provider: 01/26/23 20:07 Source: patient, EMS and RN notes reviewed Mode of arrival: EMS History of Present Illness HPI Narrative: Patient history of dementia and depression section 12 from [facility] for suicidal ideation with plan to jump off 4th floor of the building at this time patient. On arrival patient still suicidal, no hallucinations or delusions Related Data Home Medications Medication Instructions Recorded Confirmed amlodipine 10 mg tablet 10 mg PO DAILY 01/26/23 01/26/23 atorvastatin 80 mg tablet 80 mg PO DAILY 01/26/23 01/26/23 cholecalciferol (vitamin D3) 125 125 mcg PO DAILY 01/26/23 01/26/23 mcg (5,000 unit) capsule cyanocobalamin (vitamin B-12) 1,000 mcg PO DAILY 01/26/23 01/26/23 1,000 mcg tablet losartan 100 1 tab PO DAILY 01/26/23 01/26/23 mg-hydrochlorothiazide 25 mg tablet omeprazole 20 mg capsule,delayed 20 mg PO DAILY 01/26/23 01/26/23 release sertraline 50 mg tablet 50 mg PO QAM 01/26/23 01/26/23 thiamine HCl (vitamin B1) 100 mg 100 mg PO DAILY 01/26/23 01/26/23 tablet (Vitamin B-1) Previous Rx's Medication Instructions Recorded acetaminophen 650 mg 650 mg PO Q8H PRN pain #30 tabs 06/05/20 tablet,extended release (Tylenol Arthritis Pain) Allergies Allergy/AdvReac Type Severity Reaction Status Date / Time ibuprofen [From Motrin] Allergy Swelling Verified 01/24/23 10:58 Review of Systems Review of Systems: Yes all other systems are reviewed and are negative [facility] Past Medical History Medical History Depression High blood pressure High cholesterol Surgical History H/O: hysterectomy Social History Social History Alcohol intake: current Alcohol intake frequency: a few times a week Alcohol type: beer Advance Directives: No Advance Directives Information Provided: No Current occupational status: retired and disabled 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 Oriented X3. No acute distress. Eyes: PERRLA, No Nystagmus ENT: Pharynx normal. Oral Mucosa moist Neck: Normal inspection. Neck supple. CVS: Normal heart rate and rhythm. Pulses normal. Respiratory: No respiratory distress. Equal air entry bilateral, no wheezi ng/rales/rhonchi Abdomen: Soft and nontender. Bowel sounds are present, no mass palpable, no CVA tenderness Skin: Skin warm and dry. Normal skin color. Normal skin turgor. Extremities: No lower extremity edema. No calf tenderness psych:, cooperative +SI Neuro: Oriented X 3. No motor deficit. No sensory deficit.No cerebellar signs , cranial nerves II-XII intact Medications Administered Generic Name Dose Route Start Last Admin Trade Name Freq PRN Reason Stop Dose Admin Amlodipine Besylate 10 mg 01/27/23 09:00 01/27/23 00:17 Amlodipine Besylate 10 Mg Tablet PO 10 mg DAILY CHRISTINA Administration Protocol Discontinued Medications Generic Name Dose Route Start Last Admin Trade Name Freq PRN Reason Stop Dose Admin Lorazepam 2 mg 01/27/23 00:13 01/27/23 00:17 Lorazepam 1 Mg Tablet PO 01/27/23 00:14 2 mg ONCE ONE Administration Medical Decision Making Medical Decision Making [facility] Narrative: Patient depression with SI section 12 awaiting for placement Lab Data [facility] Lab Attestation statement: I reviewed the patient's lab results. 01/26/23 21:09 01/26/23 21:09 Labs: Lab Results 01/26/23 01/26/23 01/26/23 Range/Units 21:09 21:09 21:09 WBC 7.2 (4.8-10.8) X10*3/uL RBC 3.98 L (4.20-5.50) X10*6/uL Hgb 11.9 L (12.0-16.0) g/dl Hct 36.0 L (37.0-47.0) % MCV 90.5 (80.0-98.0) fL MCH 29.9 (27.0-33.0) pg MCHC 33.1 (31.0-35.0) g/dl RDW 13.0 (11.0-16.0) % Plt Count 253 (160-400) X10*3/uL MPV 9.6 (9.4-12.3) fL Immature Gran % (Auto) 0.1 (0.0-0.4) % Neut % (Auto) 64.1 (45-73) % Lymph % (Auto) 23.6 (20-40) % [place] % (Auto) 8.8 (2-11) % Eos % (Auto) 3.1 (0-4) % Baso % (Auto) 0.3 (0-2) % Lymph # (Auto) 1.7 (1.2-4.9) X10*3/uL [place] # (Auto) 0.6 (0.1-1.2) X10*3/uL Eos # (Auto) 0.2 (0.0-0.4) X10*3/uL Baso # (Auto) 0.0 (0.0-0.2) X10*3/uL Abs Immat Gran (auto) 0.01 (0.00-0.03) X10*3/uL Absolute Neuts (auto) 4.6 (2.0-8.3) x10*3/uL Absolute Nucleated RBC 0.000 (0.0-0.012) X10*3/uL Nucleated RBC % (auto) 0.0 (0.0-0.2) /100WBC Sodium 142 (135-145) mmol/L Potassium 3.6 (3.3-5.1) mmol/L Chloride 107 (96-108) mmol/L Carbon Dioxide 23 (22-29) mmol/L Anion Gap 16 (12-20) BUN 14 (9-16) mg/dL Creatinine 0.78 (0.5-1.4) mg/dL Estim Creat Clear Calc 51.3 Estimated GFR > 60 Random Glucose 105 (60-115) mg/dL Calcium 9.8 (8.4-10.2) mg/dL Total Bilirubin 0.3 (0.0-1.0) mg/dL AST 20 (5-31) U/L ALT 19 (0-31) U/L Alkaline Phosphatase 64 (39-117) U/L Total Protein 6.9 (6.5-8.0) g/dL Albumin 3.9 (3.5-5.0) g/dL Urine Color Urine Appearance Urine pH (5.0-9.0) Ur Specific [place] (1.005-1.025) Urine Protein (Neg-Trace) mg/dL Urine Glucose (UA) (Negative) mg/dL Urine Ketones (Negative) mg/dL Urine Blood (Negative) Urine Nitrite (Negative) Ur Leukocyte Esterase (Negative) Urine RBC (0-2) /HPF Urine WBC (0-5) /HPF Ur Squamous Epith Cells (0-2) /HPF Calcium Oxalate Crystal Urine Bacteria (None Seen) Hyaline Casts (0-2) /LPF Urine Yeast Urine Opiates Screen Not Detected (Not Detect) Urine Fentanyl Screen Not Detected (Not Detect) Ur Barbiturates Screen Not Detected (Not Detect) Ur Phencyclidine Scrn Not Detected (Not Detect) Ur Amphetamines Screen Not Detected (Not Detect) U Benzodiazepines Scrn Not Detected (Not Detect) Urine Cocaine Screen Not Detected (Not Detect) U Marijuana (THC) Screen Not Detected (Not Detect) Ethyl Alcohol < 10 mg/dL 01/26/23 Range/Units 21:10 WBC (4.8-10.8) X10*3/uL RBC (4.20-5.50) X10*6/uL Hgb (12.0-16.0) g/dl Hct (37.0-47.0) % MCV (80.0-98.0) fL MCH (27.0-33.0) pg MCHC (31.0-35.0) g/dl RDW (11.0-16.0) % Plt Count (160-400) X10*3/uL MPV (9.4-12.3) fL Immature Gran % (Auto) (0.0-0.4) % Neut % (Auto) (45-73) % Lymph % (Auto) (20-40) % [place] % (Auto) (2-11) % Eos % (Auto) (0-4) % Baso % (Auto) (0-2) % Lymph # (Auto) (1.2-4.9) X10*3/uL [place] # (Auto) (0.1-1.2) X10*3/uL Eos # (Auto) (0.0-0.4) X10*3/uL Baso # (Auto) (0.0-0.2) X10*3/uL Abs Immat Gran (auto) (0.00-0.03) X10*3/uL Absolute Neuts (auto) (2.0-8.3) x10*3/uL Absolute Nucleated RBC (0.0-0.012) X10*3/uL Nucleated RBC % (auto) (0.0-0.2) /100WBC Sodium (135-145) mmol/L Potassium (3.3-5.1) mmol/L Chloride (96-108) mmol/L Carbon Dioxide (22-29) mmol/L Anion Gap (12-20) BUN (9-16) mg/dL Creatinine (0.5-1.4) mg/dL Estim Creat Clear Calc Estimated GFR Random Glucose (60-115) mg/dL Calcium (8.4-10.2) mg/dL Total Bilirubin (0.0-1.0) mg/dL AST (5-31) U/L ALT (0-31) U/L Alkaline Phosphatase (39-117) U/L Total Protein (6.5-8.0) g/dL Albumin (3.5-5.0) g/dL Urine Color Yellow Urine Appearance Clear Urine pH 6.0 (5.0-9.0) Ur Specific [place] 1.020 (1.005-1.025) Urine Protein Negative (Neg-Trace) mg/dL Urine Glucose (UA) Negative (Negative) mg/dL Urine Ketones Negative (Negative) mg/dL Urine Blood Negative (Negative) Urine Nitrite Negative (Negative) Ur Leukocyte Esterase Trace H (Negative) Urine RBC 0-2 (0-2) /HPF Urine WBC 6-10 H (0-5) /HPF Ur Squamous Epith Cells 3-5 (0-2) /HPF Calcium Oxalate Crystal Present Urine Bacteria None Seen (None Seen) Hyaline Casts 0-2 (0-2) /LPF Urine Yeast Present Urine Opiates Screen (Not Detect) Urine Fentanyl Screen (Not Detect) Ur Barbiturates Screen (Not Detect) Ur Phencyclidine Scrn (Not Detect) Ur Amphetamines Screen (Not Detect) U Benzodiazepines Scrn (Not Detect) Urine Cocaine Screen (Not Detect) U Marijuana (THC) Screen (Not Detect) Ethyl Alcohol mg/dL Discharge Plan Discharge Clinical Impression: Depression, Suicidal ideation Patient Disposition: Still a Patient Prescriptions: No Action acetaminophen [Tylenol Arthritis Pain] 650 mg tablet extended release 650 mg PO Q8H PRN (Reason: pain) Qty: 30 0RF atorvastatin 80 mg tablet 80 mg PO DAILY cyanocobalamin (vitamin B-12) 1,000 mcg tablet 1,000 mcg PO DAILY thiamine HCl (vitamin B1) [Vitamin B-1] 100 mg tablet 100 mg PO DAILY losartan-hydrochlorothiazide 100-25 mg tablet 1 tab PO DAILY amlodipine 10 mg tablet 10 mg PO DAILY omeprazole 20 mg capsule,delayed release(DR/EC) 20 mg PO DAILY sertraline 50 mg tablet 50 mg PO QAM cholecalciferol (vitamin D3) 125 mcg (5,000 unit) capsule 125 mcg PO DAILY Interventions: [place]-Suicide Risk Severity Scale Last Done: 01/26/23 21:19
[2023-01-26 21:16] LABS: MANUAL DIFF FLAG NO
[2023-01-26 21:19] LABS: Appearance Urine Clear; Color Urine Yellow; Glucose Urine UA Negative (Negative); Leukocyte Esterase Urine Trace (Negative); Nitrite Urine Negative (Negative); UMIC TRIGGER UA YES; Urine Blood Negative (Negative); Urine Ketones Negative (Negative); Urine Protein Negative (Neg-Trace)
[2023-01-26 21:20] LABS: Basophils Percent Auto 0.3 % (0-2); Eosinophils Absolute Auto 0.2 X10*3/uL (0.0-0.4); Eosinophils Percent Auto 3.1 % (0-4); Hemoglobin 11.9 g/dl (12.0-16.0); Imm Gran Abs Auto 0.01 X10*3/uL (0.00-0.03); Imm Gran Pct Auto 0.1 % (0.0-0.4); Lymphocytes Absolute Auto 1.7 X10*3/uL (1.2-4.9); Lymphocytes Percent Auto 23.6 % (20-40); Mean Corpuscular HGB Conc 33.1 g/dl (31.0-35.0); Mean Corpuscular Hemoglobin 29.9 pg (27.0-33.0); Mean Corpuscular Volume 90.5 fL (80.0-98.0); Mean Platelet Volume 9.6 fL (9.4-12.3); Monocytes Absolute Auto 0.6 X10*3/uL (0.1-1.2); Monocytes Percent Auto 8.8 % (2-11); Neutrophils Absolute Auto 4.6 x10*3/uL (2.0-8.3); Neutrophils Percent Auto 64.1 % (45-73); Platelet Count 253 X10*3/uL (160-400); Red Blood Count 3.98 X10*6/uL (4.20-5.50); White Blood Count 7.2 X10*3/uL (4.8-10.8)
[2023-01-26 21:31] LABS: Amphetamine Screen Urine Not Detected (Not Detect); Barbiturates, Urine Not Detected (Not Detect); Benzodiazepines Screen Urine Not Detected (Not Detect); Cannabinoid Screen Urine Not Detected (Not Detect); Cocaine Screen Urine Not Detected (Not Detect); Fentanyl, urine Not Detected (Not Detect); Opiate Screen Urine Not Detected (Not Detect); Phencyclidine Screen Urine Not Detected (Not Detect)
[2023-01-26 21:36] LABS: Bacteria Urine None Seen (None Seen); Calcium Oxalate Crystals Urine Present; Hyaline Casts Urine 0-2 /LPF (0-2); RBC Urine 0-2 /HPF (0-2)
[2023-01-26 21:42] LABS: Alanine Aminotransferase 19 U/L (0-31); Albumin Level 3.9 g/dL (3.5-5.0); Alkaline Phosphatase 64 U/L (39-117); Anion Gap 16 (12-20); Aspartate Amino Transferase 20 U/L (5-31); Bilirubin Total 0.3 mg/dL (0.0-1.0); Blood Urea Nitrogen 14 mg/dL (9-16); Calcium 9.8 mg/dL (8.4-10.2); Carbon Dioxide 23 mmol/L (22-29); Chloride 107 mmol/L (96-108); Creatinine Clr Calc Pharmacy 51.3; Estimated Glomerular Filt Rate > 60; Ethanol < 10 mg/dL; Glucose Random 105 mg/dL (60-115); Potassium 3.6 mmol/L (3.3-5.1); Sodium 142 mmol/L (135-145); Total Protein 6.9 g/dL (6.5-8.0)
--- NOTE | 2023-01-27 | ECG_ITS ---
Test Reason : check for QT Waves Blood Pressure : / mmHG Vent. Rate : 089 BPM Atrial Rate : 089 BPM P-R Int : 126 ms QRS Dur : 092 ms QT Int : 382 ms P-R-T Axes : 055 028 045 degrees QTc Int : 464 ms Normal sinus rhythm Normal ECG When compared with ECG of 24-JAN-2023 11:24, No significant change was found Referred By: Simon Souza Electronically Signed By:MARRY NEAL
[2023-01-27 00:17] VITALS: BP 192/109; PULSE 92; RESP 16; TEMP 36.3; O2SAT 98
[2023-01-27] MEDS: LORazepam 1 MG TABLET 2 MG PO (00:17)
[2023-01-27] MEDS: amLODIPine Besylate 10 MG TABLET PO ×2 (00:17→09:05)
[2023-01-27] MEDS: Omeprazole 20 MG CAPSULE.DR PO (06:02)
[2023-01-27 06:27] LABS: COVID-19 Test Negative (Negative); IDNOW Serial# 6674DD1D
--- NOTE | 2023-01-27 06:29 | PC.NURSE ---
Patient struggle to fall sleep, Ativan 2 mg Po administered at 0017 with + effect, patient slept through the night, no distress observed/reported, med rec completed/Mar active, disposition per [facility] is [facility] 12 inpatient Bed search, labs completed/resulted, patient hypertensive, unscheduled Amlodopine 10 mg administered, will continue to monitor.
--- NOTE | 2023-01-27 07:16 | PC.NURSE ---
Resumed care of patient this morning, she is currently sleeping. Safety measures in place, [address] breakfast at bedside.
[2023-01-27] MEDS: Atorvastatin Calcium 80 MG TABLET PO (09:04)
[2023-01-27] MEDS: Cholecalciferol (Vitamin D3) 25 MCG TABLET 125 MCG PO (09:04)
[2023-01-27] MEDS: Cyanocobalamin (Vitamin B-12) 1,000 MCG TABLET 1000 MCG PO (09:05)
[2023-01-27] MEDS: Sertraline HCL 50 MG TABLET PO (09:05)
[2023-01-27] MEDS: Thiamine HCL 100 MG TABLET PO (09:05)
[2023-01-27 09:17] VITALS: BP 142/80; PULSE 84; TEMP 36.3; O2SAT 97
[2023-01-27 13:17] VITALS: BP 150/75; PULSE 103; RESP 18; TEMP 36.8; O2SAT 97
[2023-01-27 16:00] VITALS: BP 149/73; PULSE 108; RESP 18; TEMP 36.6; O2SAT 98
[2023-01-27 16:46] VITALS: BMI 22.3
[2023-01-27 18:00] VITALS: BP 121/69; PULSE 112; RESP 18; TEMP 36.4; O2SAT 98
[2023-01-27] MEDS: LORazepam 1 MG TABLET PO (18:01)
--- NOTE | 2023-01-27 21:37 | PC.ADMIT ---
Chanda Harper arrived on the unit at 1545 on Conditional Voluntary, she was calm and pleasant on approach, appeared slightly confused. Reported endorsing anxiety and depression, when asked if she had any thoughts of wanting to hurt self stated No, verbalized to look for staff if thoughts occur. Chanda appears to have poor insight, when asked how she felt stated I want to go home. appears not to recall events that led to hospitalization.
[2023-01-28 06:00] VITALS: BP 153/79; PULSE 99; RESP 18; O2SAT 98
[2023-01-28] MEDS: Omeprazole 20 MG CAPSULE.DR PO (06:09)
[2023-01-28 07:00] VITALS: BMI 22.2
[2023-01-28] MEDS: Cholecalciferol (Vitamin D3) 25 MCG TABLET 125 MCG PO (08:53)
[2023-01-28] MEDS: amLODIPine Besylate 10 MG TABLET PO (08:54)
[2023-01-28] MEDS: Thiamine HCL 100 MG TABLET PO (08:54)
[2023-01-28] MEDS: Atorvastatin Calcium 80 MG TABLET PO (08:54)
[2023-01-28] MEDS: Sertraline HCL 50 MG TABLET PO (08:54)
[2023-01-28] MEDS: Cyanocobalamin (Vitamin B-12) 1,000 MCG TABLET 1000 MCG PO (08:54)
[2023-01-28 09:33] LABS: Alanine Aminotransferase 28 U/L (0-31); Alkaline Phosphatase 67 U/L (39-117); Anion Gap 15 (12-20); Aspartate Amino Transferase 26 U/L (5-31); Bilirubin Total 0.5 mg/dL (0.0-1.0); Blood Urea Nitrogen 17 mg/dL (9-16); Calcium 9.5 mg/dL (8.4-10.2); Carbon Dioxide 22 mmol/L (22-29); Chloride 109 mmol/L (96-108); Cholesterol 215 mg/dL; Creatinine Clr Calc Pharmacy 43.2; Estimated Glomerular Filt Rate > 60; Glucose Fasting 136 mg/dL (60-99); HDL Cholesterol 70 mg/dL; LDL Cholesterol Calculated 121 mg/dl; Potassium 3.7 mmol/L (3.3-5.1); Sodium 142 mmol/L (135-145); Triglycerides 124 mg/dL
--- NOTE | 2023-01-28 12:28 | HO.PSYADMNOT ---
[facility] Date of Service: 01/28/23 Chief Complaint: SI Sources of Information: patient interviewed, chart reviewed and crisis/core team assessment reviewed HPI Subjective Notes: Fox Warning and Conditional Voluntary Narrative: The patient is a 77-year-old descent female, , mother of adult children, referred from the emergency room for hospital since the patient disclosed suicidal ideation in the context of several psychosocial stressors, exacerbation of alcohol use disorder and increase disorganized behavior. According to the crisis assessment, the patient had been drinking alcohol in a daily basis, at least a case of beer per day. Also the patient had been more irritable and agitated at home and certain point, she had a confrontation with her relatives and she threatened to kill herself by jumping of the 4th floor. Her family called 911 and she was rushed to the emergency room. On admission to the emergency room she was placed on alcohol withdrawal protocol and she has been detoxing of alcohol with Ativan. She was assessed by crisis and transferring to this facility for psychiatric stabilization. On interview, the patient reports that she is feeling depressed, with lack of energy, poor sleep and poor appetite. At this moment she adamantly denies suicidal ideation and she is able to contract for safety in the facility. She denies auditory hallucinations, past history of delirium tremens or seizures. Past Psychiatric History: The patient reported that she had been treated as an outpatient for PTSD. Medical Evaluation Reviewed: Hospitalist Venita Pending [facility] Medical History Depression High blood pressure High cholesterol Surgical History H/O: hysterectomy Family History: Denies Social History: The patient is lives with her family and has good social support Substance History: Alcohol use of disorder, she started drinking heavily since she was 47 Trauma History: Past history of trauma that she disease refused to disclose. Diagnostics Vital Signs (24Hr): Vital Signs - 24 hr 01/27/23 13:17 01/27/23 16:00 01/27/23 18:00 Temperature 98.3 F 97.8 F 97.5 F Pulse Rate 103 H 108 H 112 H Respiratory Rate 18 18 18 Blood Pressure 150/75 H 149/73 H 121/69 Pulse Oximetry 97 98 98 Oxygen Delivery Method Room Air Room Air Room Air 01/28/23 06:00 Temperature Pulse Rate 99 Respiratory Rate 18 Blood Pressure 153/79 H Pulse Oximetry 98 Oxygen Delivery Method Room Air BMI result Body Mass Index 22.3 Labs 01/26/23 21:09 01/28/23 09:04 Labs: Laboratory Results - last 48 hr 01/26/23 01/26/23 01/26/23 21:09 21:09 21:09 WBC 7.2 RBC 3.98 L Hgb 11.9 L Hct 36.0 L MCV 90.5 MCH 29.9 MCHC 33.1 RDW 13.0 Plt Count 253 MPV 9.6 Immature Gran % (Auto) 0.1 Neut % (Auto) 64.1 Lymph % (Auto) 23.6 Teller % (Auto) 8.8 Eos % (Auto) 3.1 Baso % (Auto) 0.3 Lymph # (Auto) 1.7 Teller # (Auto) 0.6 Eos # (Auto) 0.2 Baso # (Auto) 0.0 Abs Immat Gran (auto) 0.01 Absolute Neuts (auto) 4.6 Absolute Nucleated RBC 0.000 Nucleated RBC % (auto) 0.0 Sodium 142 Potassium 3.6 Chloride 107 Carbon Dioxide 23 Anion Gap 16 BUN 14 Creatinine 0.78 Estim Creat Clear Calc 51.3 Estimated GFR > 60 Random Glucose 105 Fasting Glucose Calcium 9.8 Total Bilirubin 0.3 AST 20 ALT 19 Alkaline Phosphatase 64 Total Protein 6.9 Albumin 3.9 Triglycerides Cholesterol LDL Cholesterol, Calc HDL Cholesterol Urine Color Urine Appearance Urine pH Ur Specific [place] Urine Protein Urine Glucose (UA) Urine Ketones Urine Blood Urine Nitrite Ur Leukocyte Esterase Urine RBC Urine WBC Ur Squamous Epith Cells Calcium Oxalate Crystal Urine Bacteria Hyaline Casts Urine Yeast Urine Opiates Screen Not Detected Urine Fentanyl Screen Not Detected Ur Barbiturates Screen Not Detected Ur Phencyclidine Scrn Not Detected Ur Amphetamines Screen Not Detected U Benzodiazepines Scrn Not Detected Urine Cocaine Screen Not Detected U Marijuana (THC) Screen Not Detected Ethyl Alcohol < 10 COVID-19 (RADHA) COVID-19 Clin Com 01/26/23 01/27/23 01/28/23 21:10 06:09 09:04 WBC RBC Hgb Hct MCV MCH MCHC RDW Plt Count MPV Immature Gran % (Auto) Neut % (Auto) Lymph % (Auto) Teller % (Auto) Eos % (Auto) Baso % (Auto) Lymph # (Auto) Teller # (Auto) Eos # (Auto) Baso # (Auto) Abs Immat Gran (auto) Absolute Neuts (auto) Absolute Nucleated RBC Nucleated RBC % (auto) Sodium 142 Potassium 3.7 Chloride 109 H Carbon Dioxide 22 Anion Gap 15 BUN 17 H Creatinine 0.81 Estim Creat Clear Calc 43.2 Estimated GFR > 60 Random Glucose Fasting Glucose 136 H Calcium 9.5 Total Bilirubin 0.5 AST 26 ALT 28 Alkaline Phosphatase 67 Total Protein 7.0 Albumin 4.0 Triglycerides 124 Cholesterol 215 LDL Cholesterol, Calc 121 HDL Cholesterol 70 Urine Color Yellow Urine Appearance Clear Urine pH 6.0 Ur Specific [place] 1.020 Urine Protein Negative Urine Glucose (UA) Negative Urine Ketones Negative Urine Blood Negative Urine Nitrite Negative Ur Leukocyte Esterase Trace H Urine RBC 0-2 Urine WBC 6-10 H Ur Squamous Epith Cells 3-5 Calcium Oxalate Crystal Present Urine Bacteria None Seen Hyaline Casts 0-2 Urine Yeast Present Urine Opiates Screen Urine Fentanyl Screen Ur Barbiturates Screen Ur Phencyclidine Scrn Ur Amphetamines Screen U Benzodiazepines Scrn Urine Cocaine Screen U Marijuana (THC) Screen Ethyl Alcohol COVID-19 (RADHA) Negative COVID-19 Clin Com See Note Meds/Allergies Meds Home Medications Medication Instructions Recorded Confirmed Type amlodipine 10 mg tablet 10 mg PO DAILY 01/26/23 01/26/23 History atorvastatin 80 mg tablet 80 mg PO DAILY 01/26/23 01/26/23 History cholecalciferol (vitamin D3) 125 125 mcg PO DAILY 01/26/23 01/26/23 History mcg (5,000 unit) capsule cyanocobalamin (vitamin B-12) 1,000 mcg PO DAILY 01/26/23 01/26/23 History 1,000 mcg tablet losartan 100 1 tab PO DAILY 01/26/23 01/26/23 History mg-hydrochlorothiazide 25 mg tablet omeprazole 20 mg capsule,delayed 20 mg PO DAILY 01/26/23 01/26/23 History release sertraline 50 mg tablet 50 mg PO QAM 01/26/23 01/26/23 History thiamine HCl (vitamin B1) 100 mg 100 mg PO DAILY 01/26/23 01/26/23 History tablet (Vitamin B-1) Allergies Allergies Allergy/AdvReac Type Severity Reaction Status Date / Time ibuprofen [From Motrin] Allergy Swelling Verified 01/24/23 10:58 Mental Status Exam Mental Status Exam Patient Appearance: Appropriate Patient Orientation: Person and Situation Level of Consciousness: Awake and Appropriate Patient Behavior: Guarded and Passive Mood Description: Withdrawn Affect Description: Constricted Patient Cognition Impaired: Yes Ability to Follow Directions: Good Speech Pattern: Clear Hallucinations: None Delusions: Not Present Thought Process: Illogical, Distracted and Evasive Thought Content: positive for [place] and positive for Poverty of Content Judgement: Fair Assessment & Plan Assessment & Plan (1) Acute UTI: Status: Inactive Code(s): N39.0 - Urinary tract infection, site not specified (2) Dementia: Status: Inactive Code(s): F03.90 - Unspecified dementia, unspecified severity, without behavioral disturbance, psychotic disturbance, mood disturbance, and anxiety Plan The patient is an elderly, [place] female with a past history of alcohol use disorder, PTSD and depression admitted into the facility since she disclosed suicidal ideation by the plan of jumping of the 4th floor. She had been also actively abusing of alcohol and she had been more disorganized and labile. She was diagnosed with a UTI on the emergency room and already treated. Plan 1. Gather collateral information. 2. Continue with alcohol withdrawal protocol detoxification with lorazepam. 3. We will continue with medical workout. 4. Apparently the patient had a UTI and she had been already treated so will follow she becomes delirious. 5. Will start an antidepressant to target dysphoria and anxiety. 6. The patient is able to contract for safety social we are going to keep her on 15 minutes checks. Patient educated on: diagnosis and therapeutic strategies Informed Consent: further education needed Reason for continued inpatient stay Substantial Risk for: inability to function, rapid decompensation and med/psych decompensation Statement Statement: I have reviewed the history and physical and performed a pertinent examination on my patient. No changes have occurred unless specified. If the History and Physical was not performed prior to admission, the Hospitalist's service will be consulted for completing the admission physical. Time Spent With Patient Time: Total time managing care of this patient today _45___ minutes.
[2023-01-28 18:00] VITALS: BP 152/71; PULSE 89; RESP 18; TEMP 36.9; O2SAT 96
[2023-01-29] MEDS: traZODone HCL 50 MG TABLET PO ×2 (02:00→22:03)
[2023-01-29] MEDS: Omeprazole 20 MG CAPSULE.DR PO (06:31)
[2023-01-29 08:20] VITALS: BP 155/82; PULSE 99; RESP 18; TEMP 36.3; O2SAT 98
[2023-01-29] MEDS: Sertraline HCL 50 MG TABLET PO (09:09)
[2023-01-29] MEDS: Thiamine HCL 100 MG TABLET PO (09:09)
[2023-01-29] MEDS: Cyanocobalamin (Vitamin B-12) 1,000 MCG TABLET 1000 MCG PO (09:09)
[2023-01-29] MEDS: Cholecalciferol (Vitamin D3) 25 MCG TABLET 125 MCG PO (09:09)
[2023-01-29] MEDS: Acetaminophen 325 MG TABLET 650 MG PO ×2 (09:09→22:03)
[2023-01-29] MEDS: amLODIPine Besylate 10 MG TABLET PO (09:09)
[2023-01-29] MEDS: Atorvastatin Calcium 80 MG TABLET PO (09:10)
[2023-01-29] MEDS: hydrOXYzine HCL 50 MG TABLET PO ×2 (10:12→22:03)
--- NOTE | 2023-01-29 11:08 | HO.PSYCHPN ---
Subjective Subjective Date of Service: 01/29/23 Reason For Visit: SI Subjective Notes: Conditional Voluntary Interim History: The nursing staff reported the patient has been isolative but pleasant and cooperative. She had been scoring on her CIWA 1 or 2, she is detoxing safely from alcohol. Today in the morning the patient reported that she was very anxious and received Vistaril 50 mg with some improvement. On interview we discussed with the patient treatment options for alcohol use disorder and treatment of depression and anxiety. She is treated for her UTI and so far she denies symptoms. Mental Status Exam Mental Status Exam Patient Appearance: Appropriate Patient Orientation: Person and Situation Level of Consciousness: Awake and Appropriate Patient Behavior: Guarded and Passive Mood Description: Withdrawn Affect Description: Constricted Patient Cognition Impaired: Yes Ability to Follow Directions: Good Speech Pattern: Clear Hallucinations: None Delusions: Not Present Thought Process: Distracted and Slowed Thinking Thought Content: positive for [place] and positive for Circumstantial Judgement: Fair Diagnostics Vital Signs (24Hr): Vital Signs - 24 hr 01/28/23 18:00 01/29/23 08:20 Temperature 98.5 F 97.4 F Pulse Rate 89 99 Respiratory Rate 18 18 Blood Pressure 152/71 H 155/82 H Pulse Oximetry 96 98 Oxygen Delivery Method Room Air Room Air BMI result Body Mass Index 22.2 Labs 01/26/23 21:09 01/28/23 09:04 Labs: Laboratory Results - last 48 hr 01/28/23 09:04 Sodium 142 Potassium 3.7 Chloride 109 H Carbon Dioxide 22 Anion Gap 15 BUN 17 H Creatinine 0.81 Estim Creat Clear Calc 43.2 Estimated GFR > 60 Fasting Glucose 136 H Calcium 9.5 Total Bilirubin 0.5 AST 26 ALT 28 Alkaline Phosphatase 67 Total Protein 7.0 Albumin 4.0 Triglycerides 124 Cholesterol 215 LDL Cholesterol, Calc 121 HDL Cholesterol 70 Medications Medications Current Medications Acetaminophen (Acetaminophen 325 Mg Tablet) 650 mg PO Q8H PRN PRN Reason: pain Last Admin: 01/29/23 09:09 Dose: 650 mg Al Hydroxide/Mg Hydroxide (Magnesium Hydrox/Alum Hydrox 30 Ml Oral.Susp) 30 ml PO Q6H PRN PRN Reason: Heartburn/Nausea Amlodipine Besylate (Amlodipine Besylate 10 Mg Tablet) 10 mg PO DAILY [facility]; Protocol Last Admin: 01/29/23 09:09 Dose: 10 mg Atorvastatin Calcium (Atorvastatin Calcium 80 Mg Tablet) 80 mg PO DAILY [facility] Last Admin: 01/29/23 09:10 Dose: 80 mg Cefuroxime Axetil (Cefuroxime Axetil 250 Mg Tablet) 250 mg PO BID [facility] Stop: 02/02/23 21:01 Last Admin: 01/29/23 09:09 Dose: 250 mg Cyanocobalamin (Cyanocobalamin (Vitamin B-12) 1,000 Mcg Tablet) 1,000 mcg PO DAILY [facility] Last Admin: 01/29/23 09:09 Dose: 1,000 mcg Lorazepam (Lorazepam 1 Mg Tablet) 1 mg PO Q4H PRN PRN Reason: ciwa 7-12 Last Admin: 01/27/23 18:01 Dose: 1 mg Lorazepam (Lorazepam 1 Mg Tablet) 2 mg PO Q4H PRN PRN Reason: Ciwa 13-16 Lorazepam (Lorazepam 1 Mg Tablet) 3 mg PO Q4H PRN PRN Reason: ciwa >17 call MD Magnesium Hydroxide (Milk Of Magnesia 30 Ml Oral.Susp) 30 ml PO DAILY PRN PRN Reason: Constipation Omeprazole (Omeprazole 20 Mg Capsule.Dr) 20 mg PO DAILY@0630 [facility] Last Admin: 01/29/23 06:31 Dose: 20 mg Pharmacy Consult (Consult Rx Perform Med Rec) 1 each MISCELLANE ONCE PRN PRN Reason: Consult order Sertraline HCl (Sertraline Hcl 50 Mg Tablet) 50 mg PO DAILY [facility] Last Admin: 01/29/23 09:09 Dose: 50 mg Thiamine HCl (Thiamine Hcl 100 Mg Tablet) 100 mg PO DAILY [facility] Last Admin: 01/29/23 09:09 Dose: 100 mg Trazodone HCl (Trazodone Hcl 50 Mg Tablet) 50 mg PO BEDTIME [id number] PRN PRN Reason: Insomnia Last Admin: 01/29/23 02:00 Dose: 50 mg Vitamin D (Cholecalciferol (Vitamin D3) 25 Mcg Tablet) 125 mcg PO DAILY [facility] Last Admin: 01/29/23 09:09 Dose: 125 mcg Allergies Allergies Allergy/AdvReac Type Severity Reaction Status Date / Time ibuprofen [From Motrin] Allergy Swelling Verified 01/24/23 10:58 Assessment & Plan Assessment & Plan (1) Acute UTI: Status: Inactive Code(s): N39.0 - Urinary tract infection, site not specified (2) Dementia: Status: Inactive Code(s): F03.90 - Unspecified dementia, unspecified severity, without behavioral disturbance, psychotic disturbance, mood disturbance, and anxiety Plan The patient is an elderly, [place] female with a past history of alcohol use disorder, PTSD and depression admitted into the facility since she disclosed suicidal ideation by the plan of jumping of the 4th floor. She had been also actively abusing of alcohol and she had been more disorganized and labile. She was diagnosed with a UTI on the emergency room and already treated. Plan 1. Gather collateral information. 2. Continue with alcohol withdrawal protocol detoxification with lorazepam. 3. We will continue with medical workout. 4. Apparently the patient had a UTI and she had been already treated so will follow she becomes delirious. 5. Will start an antidepressant to target dysphoria and anxiety. 6. The patient is able to contract for safety social we are going to keep her on 15 minutes checks. 7. Discontinue CIWA and Ativan. 8. Start naltrexone 50 mg p.o. daily to target alcohol cravings. Reason for continued inpatient stay Substantial Risk for: inability to function, rapid decompensation and med/psych decompensation Time Spent With Patient Time: Total time managing care of this patient today __20__ minutes.
[2023-01-29 21:54] VITALS: BP 145/73; PULSE 98; RESP 18; TEMP 36.4; O2SAT 97
[2023-01-30] MEDS: Omeprazole 20 MG CAPSULE.DR PO (06:14)
[2023-01-30 08:38] VITALS: BP 144/75; PULSE 89; RESP 16; TEMP 36.7; O2SAT 96
[2023-01-30] MEDS: Atorvastatin Calcium 80 MG TABLET PO (08:39)
[2023-01-30] MEDS: Cyanocobalamin (Vitamin B-12) 1,000 MCG TABLET 1000 MCG PO (08:39)
[2023-01-30] MEDS: Cholecalciferol (Vitamin D3) 25 MCG TABLET 125 MCG PO (08:39)
[2023-01-30] MEDS: Thiamine HCL 100 MG TABLET PO (08:39)
[2023-01-30] MEDS: Sertraline HCL 50 MG TABLET PO (08:39)
[2023-01-30] MEDS: amLODIPine Besylate 10 MG TABLET PO (08:39)
--- NOTE | 2023-01-30 11:53 | P.PNPSI_ITS ---
Subjective Subjective Date of Service: 01/30/23 Reason For Visit: SI Subjective Notes: Conditional Voluntary Interim History: Patient was seen and discussed in rounds today with the help of an whiskey filterer. She is doing better, is brighter and more engageable. She is finished with her detox protocol. She is being treated for UTI. No dangerous behaviors. No co mplaints or side effects. No changes were made today Review of Systems Review of Systems Yes all other systems are reviewed and are negative Mental Status Exam Mental Status Exam Patient Appearance: Appropriate Patient Orientation: Person and Situation Level of Consciousness: Awake and Appropriate Patient Behavior: Guarded and Passive Mood Description: Withdrawn Affect Description: Constricted Patient Cognition Impaired: Yes Ability to Follow Directions: Good Speech Pattern: Clear Hallucinations: None Delusions: Not Present Thought Process: Distracted and Slowed Thinking Thought Content: positive for [place] and positive for Circumstantial Judgement: Fair Diagnostics Vital Signs (24Hr): Vital Signs - 24 hr 01/29/23 21:54 01/30/23 08:38 Temperature 97.6 F 98.1 F Pulse Rate 98 89 Respiratory Rate 18 16 Blood Pressure 145/73 H 144/75 H Pulse Oximetry 97 96 Oxygen Delivery Method Room Air Room Air BMI result Body Mass Index 22.2 Labs 01/26/23 21:09 01/28/23 09:04 Medications Medications Current Medications Acetaminophen (Acetaminophen 325 Mg Tablet) 650 mg PO Q8H PRN PRN Reason: pain Last Admin: 01/29/23 22:03 Dose: 650 mg Al Hydroxide/Mg Hydroxide (Magnesium Hydrox/Alum Hydrox 30 Ml Oral.Susp) 30 ml PO Q6H PRN PRN Reason: Heartburn/Nausea Amlodipine Besylate (Amlodipine Besylate 10 Mg Tablet) 10 mg PO DAILY [facility]; Protocol Last Admin: 01/30/23 08:39 Dose: 10 mg Atorvastatin Calcium (Atorvastatin Calcium 80 Mg Tablet) 80 mg PO DAILY [facility] Last Admin: 01/30/23 08:39 Dose: 80 mg Cefuroxime Axetil (Cefuroxime Axetil 250 Mg Tablet) 250 mg PO BID [facility] Stop: 02/02/23 21:01 Last Admin: 01/30/23 08:39 Dose: 250 mg Cyanocobalamin (Cyanocobalamin (Vitamin B-12) 1,000 Mcg Tablet) 1,000 mcg PO DAILY [facility] Last Admin: 01/30/23 08:39 Dose: 1,000 mcg Hydroxyzine HCl (Hydroxyzine Hcl 50 Mg Tablet) 50 mg PO Q8H PRN PRN Reason: Anxiety Last Admin: 01/29/23 22:03 Dose: 50 mg Magnesium Hydroxide (Milk Of Magnesia 30 Ml Oral.Susp) 30 ml PO DAILY PRN PRN Reason: Constipation Omeprazole (Omeprazole 20 Mg Capsule.Dr) 20 mg PO DAILY@0630 [facility] Last Admin: 01/30/23 06:14 Dose: 20 mg Pharmacy Consult (Consult Rx Perform Med Rec) 1 each MISCELLANE ONCE PRN PRN Reason: Consult order Sertraline HCl (Sertraline Hcl 50 Mg Tablet) 50 mg PO DAILY [facility] Last Admin: 01/30/23 08:39 Dose: 50 mg Thiamine HCl (Thiamine Hcl 100 Mg Tablet) 100 mg PO DAILY [facility] Last Admin: 01/30/23 08:39 Dose: 100 mg Trazodone HCl (Trazodone Hcl 50 Mg Tablet) 50 mg PO BEDTIME [id number] PRN PRN Reason: Insomnia Last Admin: 01/29/23 22:03 Dose: 50 mg Vitamin D (Cholecalciferol (Vitamin D3) 25 Mcg Tablet) 125 mcg PO DAILY [facility] Last Admin: 01/30/23 08:39 Dose: 125 mcg Allergies Allergies Allergy/AdvReac Type Severity Reaction Status Date / Time ibuprofen [From Motrin] Allergy Swelling Verified 01/24/23 10:58 Assessment & Plan Assessment & Plan (1) Acute UTI: Status: Inactive Code(s): N39.0 - Urinary tract infection, site not specified (2) Dementia: Status: Inactive Code(s): F03.90 - Unspecified dementia, unspecified severity, without behavioral disturbance, psychotic disturbance, mood disturbance, and anxiety Plan The patient is an elderly, [place] female with a past history of alcohol u se disorder, PTSD and depression admitted into the facility since she disclosed suicidal ideation by the plan of jumping of the 4th floor. She had been also actively abusing of alcohol and she had been more disorganized and labile. She was diagnosed with a UTI on the emergency room and already treated. Plan 1. Gather collateral information. 2. Continue with alcohol withdrawal protocol detoxification with lorazepam. 3. We will continue with medical workout. 4. Apparently the patient had a UTI and she had been already treated so will follow she becomes delirious. 5. Will start an antidepressant to target dysphoria and anxiety. 6. The patient is able to contract for safety social we are going to keep her on 15 minutes checks. 7. Discontinue CIWA and Ativan. 8. Start naltrexone 50 mg p.o. daily to target alcohol cravings. /: Continue current regimen and plans Reason for continued inpatient stay Substantial Risk for: inability to function Time Spent With Patient Time: Total time managing care of this patient today ____ minutes.
[2023-01-30 20:00] VITALS: BP 168/79; PULSE 100; RESP 18; TEMP 36.2; O2SAT 98
[2023-01-31] MEDS: Omeprazole 20 MG CAPSULE.DR PO (06:17)
[2023-01-31 08:44] VITALS: BP 155/71; PULSE 92; RESP 16; TEMP 36.6; O2SAT 97
[2023-01-31] MEDS: Cyanocobalamin (Vitamin B-12) 1,000 MCG TABLET 1000 MCG PO (08:45)
[2023-01-31] MEDS: Cholecalciferol (Vitamin D3) 25 MCG TABLET 125 MCG PO (08:46)
[2023-01-31] MEDS: amLODIPine Besylate 10 MG TABLET PO (08:46)
[2023-01-31] MEDS: Atorvastatin Calcium 80 MG TABLET PO (08:46)
[2023-01-31] MEDS: Sertraline HCL 50 MG TABLET PO (08:46)
[2023-01-31] MEDS: Thiamine HCL 100 MG TABLET PO (08:46)
--- NOTE | 2023-01-31 11:44 | P.PNPSI_ITS ---
Subjective Subjective Date of Service: 01/31/23 Reason For Visit: SI Subjective Notes: Conditional Voluntary Interim History: Patient was seen and discussed in rounds today with the help of an horse shoer. She has been stable and is doing well. She continues on the antibiotic for her UTI, Ceftin. She has come, pleasant and cooperative. Eating and sleeping No behavioral issues. No changes were made Review of Systems Review of Systems Yes all other systems are reviewed and are negative Mental Status Exam Mental Status Exam Patient Appearance: Appropriate Patient Orientation: Person and Situation Level of Consciousness: Awake and Appropriate Patient Behavior: Guarded and Passive Mood Description: Withdrawn Affect Description: Constricted Patient Cognition Impaired: Yes Ability to Follow Directions: Good Speech Pattern: Clear Hallucinations: None Delusions: Not Present Thought Process: Distracted and Slowed Thinking Thought Content: positive for [place] and positive for Circumstantial Judgement: Fair Diagnostics Vital Signs (24Hr): Vital Signs - 24 hr 01/30/23 20:00 01/31/23 08:44 Temperature 97.2 F 97.8 F Pulse Rate 100 92 Respiratory Rate 18 16 Blood Pressure 168/79 H 155/71 H Pulse Oximetry 98 97 Oxygen Delivery Method Room Air Room Air BMI result Body Mass Index 22.2 Labs 01/26/23 21:09 01/28/23 09:04 Medications Medications Current Medications Acetaminophen (Acetaminophen 325 Mg Tablet) 650 mg PO Q8H PRN PRN Reason: pain Last Admin: 01/29/23 22:03 Dose: 650 mg Al Hydroxide/Mg Hydroxide (Magnesium Hydrox/Alum Hydrox 30 Ml Oral.Susp) 30 ml PO Q6H PRN PRN Reason: Heartburn/Nausea Amlodipine Besylate (Amlodipine Besylate 10 Mg Tablet) 10 mg PO DAILY [facility]; Protocol Last Admin: 01/31/23 08:46 Dose: 10 mg Atorvastatin Calcium (Atorvastatin Calcium 80 Mg Tablet) 80 mg PO DAILY [facility] Last Admin: 01/31/23 08:46 Dose: 80 mg Cefuroxime Axetil (Cefuroxime Axetil 250 Mg Tablet) 250 mg PO BID [facility] Stop: 02/02/23 21:01 Last Admin: 01/31/23 08:46 Dose: 250 mg Cyanocobalamin (Cyanocobalamin (Vitamin B-12) 1,000 Mcg Tablet) 1,000 mcg PO DAILY [facility] Last Admin: 01/31/23 08:45 Dose: 1,000 mcg Hydroxyzine HCl (Hydroxyzine Hcl 50 Mg Tablet) 50 mg PO Q8H PRN PRN Reason: Anxiety Last Admin: 01/29/23 22:03 Dose: 50 mg Magnesium Hydroxide (Milk Of Magnesia 30 Ml Oral.Susp) 30 ml PO DAILY PRN PRN Reason: Constipation Omeprazole (Omeprazole 20 Mg Capsule.Dr) 20 mg PO DAILY@0630 [facility] Last Admin: 01/31/23 06:17 Dose: 20 mg Pharmacy Consult (Consult Rx Perform Med Rec) 1 each MISCELLANE ONCE PRN PRN Reason: Consult order Sertraline HCl (Sertraline Hcl 50 Mg Tablet) 50 mg PO DAILY [facility] Last Admin: 01/31/23 08:46 Dose: 50 mg Thiamine HCl (Thiamine Hcl 100 Mg Tablet) 100 mg PO DAILY [facility] Last Admin: 01/31/23 08:46 Dose: 100 mg Trazodone HCl (Trazodone Hcl 50 Mg Tablet) 50 mg PO BEDTIME MRX1 PRN PRN Reason: Insomnia Last Admin: 01/29/23 22:03 Dose: 50 mg Vitamin D (Cholecalciferol (Vitamin D3) 25 Mcg Tablet) 125 mcg PO DAILY [facility] Last Admin: 01/31/23 08:46 Dose: 125 mcg Allergies Allergies Allergy/AdvReac Type Severity Reaction Status Date / Time ibuprofen [From Motrin] Allergy Swelling Verified 01/24/23 10:58 Assessment & Plan Assessment & Plan (1) Acute UTI: Status: Inactive Code(s): N39.0 - Urinary tract infection, site not specified (2) Dementia: Status: Inactive Code(s): F03.90 - Unspecified dementia, unspecified severity, without behavioral disturbance, psychotic disturbance, mood disturbance, and anxiety Plan The patient is an elderly, [place]ese female with a past history of alcohol use disorder, PTSD and depression admitted into the facility since she disclosed suicidal ideation by the plan of jumping of the 4th floor. She had been also actively abusing of alcohol and she had been more disorganized and labile. She was diagnosed with a UTI on the emergency room and already treated. Plan 1. Gather collateral information. 2. Continue with alcohol withdrawal protocol detoxification with lorazepam. 3. We will continue with medical workout. 4. Apparently the patient had a UTI and she had been already treated so will follow she becomes delirious. 5. Will start an antidepressant to target dysphoria and anxiety. 6. The patient is able to contract for safety social we are going to keep her on 15 minutes checks. 7. Discontinue CIWA and Ativan. 8. Start naltrexone 50 mg p.o. daily to target alcohol cravings. 01/30: Continue current regimen and plans 01/31: Continue current plans and regimen Reason for continued inpatient stay Substantial Risk for: inability to function Time Spent With Patient Time: Total time managing care of this patient today ____ minutes.
[2023-01-31 18:00] VITALS: BP 145/74; PULSE 104; RESP 16; TEMP 36.1; O2SAT 95
[2023-01-31] MEDS: traZODone HCL 50 MG TABLET PO (23:34)
[2023-01-31] MEDS: hydrOXYzine HCL 50 MG TABLET PO (23:34)
[2023-02-01 08:01] VITALS: BP 144/74; PULSE 96; RESP 20; TEMP 35.9; O2SAT 95
[2023-02-01] MEDS: hydrOXYzine HCL 50 MG TABLET PO (08:30)
[2023-02-01] MEDS: amLODIPine Besylate 10 MG TABLET PO (08:30)
[2023-02-01] MEDS: Cyanocobalamin (Vitamin B-12) 1,000 MCG TABLET 1000 MCG PO (08:30)
[2023-02-01] MEDS: Omeprazole 20 MG CAPSULE.DR PO (08:30)
[2023-02-01] MEDS: Thiamine HCL 100 MG TABLET PO (08:30)
[2023-02-01] MEDS: Cholecalciferol (Vitamin D3) 25 MCG TABLET 125 MCG PO (08:30)
[2023-02-01] MEDS: Atorvastatin Calcium 80 MG TABLET PO (08:30)
[2023-02-01] MEDS: Sertraline HCL 50 MG TABLET PO (08:31)
--- NOTE | 2023-02-01 14:47 | P.PNPSI_ITS ---
Subjective Subjective Date of Service: 02/01/23 Reason For Visit: SI Subjective Notes: Conditional Voluntary and 3 Day Interim History: The nursing staff reported the patient has been pleasant and cooperative. She is in a 3 day notice letter and she adamantly denies suicidal ideation. The occupational therapy reported that she goes to groups but lives early. She is mostly pleasant and cooperative. On interview the patient adamantly denies suicidal ideation and she wants discharge. According to her daughter, she was diagnosed of dementia and we were going to discuss options such as Aricept. Mental Status Exam Mental Status Exam Patient Appearance: Well Grooomed and Appropriate Patient Orientation: Person and Situation Level of Consciousness: Awake and Appropriate Patient Behavior: Guarded and Passive Mood Description: Withdrawn Affect Description: Constricted Patient Cognition Impaired: Yes Ability to Follow Directions: Good Speech Pattern: Clear Hallucinations: None Delusions: Not Present Thought Process: Distracted and Linear Thought Content: positive for [place] and positive for Circumstantial Judgement: Fair Diagnostics Vital Signs (24Hr): Vital Signs - 24 hr 01/31/23 18:00 02/01/23 08:01 Temperature 96.9 F 96.6 F L Pulse Rate 104 H 96 Respiratory Rate 16 20 Blood Pressure 145/74 H 144/74 H Pulse Oximetry 95 95 Oxygen Delivery Method Room Air Room Air BMI result Body Mass Index 22.2 Labs 01/26/23 21:09 01/28/23 09:04 Medications Medications Current Medications Acetaminophen (Acetaminophen 325 Mg Tablet) 650 mg PO Q8H PRN PRN Reason: pain Last Admin: 01/29/23 22:03 Dose: 650 mg Al Hydroxide/Mg Hydroxide (Magnesium Hydrox/Alum Hydrox 30 Ml Oral.Susp) 30 ml PO Q6H PRN PRN Reason: Heartburn/Nausea Amlodipine Besylate (Amlodipine Besylate 10 Mg Tablet) 10 mg PO DAILY [facility]; Protocol Last Admin: 02/01/23 08:30 Dose: 10 mg Atorvastatin Calcium (Atorvastatin Calcium 80 Mg Tablet) 80 mg PO DAILY [facility] Last Admin: 02/01/23 08:30 Dose: 80 mg Cefuroxime Axetil (Cefuroxime Axetil 250 Mg Tablet) 250 mg PO BID [facility] Stop: 02/02/23 21:01 Last Admin: 02/01/23 08:30 Dose: 250 mg Cyanocobalamin (Cyanocobalamin (Vitamin B-12) 1,000 Mcg Tablet) 1,000 mcg PO DAILY [facility] Last Admin: 02/01/23 08:30 Dose: 1,000 mcg Hydroxyzine HCl (Hydroxyzine Hcl 50 Mg Tablet) 50 mg PO Q8H PRN PRN Reason: Anxiety Last Admin: 02/01/23 08:30 Dose: 50 mg Magnesium Hydroxide (Milk Of Magnesia 30 Ml Oral.Susp) 30 ml PO DAILY PRN PRN Reason: Constipation Omeprazole (Omeprazole 20 Mg Capsule.Dr) 20 mg PO DAILY@0630 [facility] Last Admin: 02/01/23 08:30 Dose: 20 mg Pharmacy Consult (Consult Rx Perform Med Rec) 1 each MISCELLANE ONCE PRN PRN Reason: Consult order Sertraline HCl (Sertraline Hcl 50 Mg Tablet) 50 mg PO DAILY [facility] Last Admin: 02/01/23 08:31 Dose: 50 mg Thiamine HCl (Thiamine Hcl 100 Mg Tablet) 100 mg PO DAILY [facility] Last Admin: 02/01/23 08:30 Dose: 100 mg Trazodone HCl (Trazodone Hcl 50 Mg Tablet) 50 mg PO BEDTIME MRX1 PRN PRN Reason: Insomnia Last Admin: 01/31/23 23:34 Dose: 50 mg Vitamin D (Cholecalciferol (Vitamin D3) 25 Mcg Tablet) 125 mcg PO DAILY [facility] Last Admin: 02/01/23 08:30 Dose: 125 mcg Allergies Allergies Allergy/AdvReac Type Severity Reaction Status Date / Time ibuprofen [From Motrin] Allergy Swelling Verified 01/24/23 10:58 Assessment & Plan Assessment & Plan (1) Acute UTI: Status: Inactive Code(s): N39.0 - Urinary tract infection, site not specified (2) Dementia: Status: Inactive Code(s): F03.90 - Unspecified dementia, unspecified severity, without behavioral disturbance, psychotic disturbance, mood disturbance, and anxiety Plan The patient is an elderly, Serbian female with a past history of alcohol use disorder, PTSD and depression admitted into the facility since she disclosed suicidal ideation by the plan of jumping of the 4th floor. She had been also actively abusing of alcohol and she had been more disorganized and labile. She was diagnosed with a UTI on the emergency room and already treated. Plan 1. Gather collateral information. 2. Continue with alcohol withdrawal protocol detoxification with lorazepam. 3. We will continue with medical workout. 4. Apparently the patient had a UTI and she had been already treated so will follow she becomes delirious. 5. Will start an antidepressant to target dysphoria and anxiety. 6. The patient is able to contract for safety social we are going to keep her on 15 minutes checks. 7. Discontinue CIWA and Ativan. 8. Start naltrexone 50 mg p.o. daily to target alcohol cravings. 9. Start Aricept 5 mg p.o. q.h.s. Reason for continued inpatient stay Substantial Risk for: inability to function, rapid decompensation and med/psych decompensation Time Spent With Patient Time: Total time managing care of this patient today __20__ minutes.
[2023-02-01 20:10] VITALS: BP 144/74; PULSE 94; RESP 16; TEMP 37; O2SAT 98
[2023-02-01] MEDS: Donepezil HCl 5 MG TABLET PO (20:12)
[2023-02-02 06:00] VITALS: BP 169/80; PULSE 86; RESP 16; O2SAT 97
[2023-02-02] MEDS: Omeprazole 20 MG CAPSULE.DR PO (06:06)
[2023-02-02] MEDS: Cholecalciferol (Vitamin D3) 25 MCG TABLET 125 MCG PO (08:21)
[2023-02-02] MEDS: Thiamine HCL 100 MG TABLET PO (08:22)
[2023-02-02] MEDS: Atorvastatin Calcium 80 MG TABLET PO (08:22)
[2023-02-02] MEDS: Cyanocobalamin (Vitamin B-12) 1,000 MCG TABLET 1000 MCG PO (08:22)
[2023-02-02] MEDS: Sertraline HCL 50 MG TABLET PO (08:22)
[2023-02-02] MEDS: amLODIPine Besylate 10 MG TABLET PO (08:22)
--- NOTE | 2023-02-02 13:32 | P.PNPSI_ITS ---
Subjective Subjective Date of Service: 02/02/23 Reason For Visit: SI Subjective Notes: Conditional Voluntary and 3 Day Interim History: The nursing staff reported the patient has been mostly isolative cooperative with care. She is in a 3 day notice and she wants to be discharged as soon as possible. The occupational therapist reported that her affect was been brighter. On interview the patient denies new symptoms she denies suicidal ideation she is able to contract for safety but she has poor insight into her alcohol problem. I advised her to continue naltrexone and follow treatment. Mental Status Exam Mental Status Exam Patient Appearance: Well Grooomed and Appropriate Patient Orientation: Person and Situation Level of Consciousness: Awake and Appropriate Patient Behavior: Guarded and Passive Mood Description: Calm Affect Description: Constricted Patient Cognition Impaired: Yes Ability to Follow Directions: Good Speech Pattern: Clear Hallucinations: None Delusions: Not Present Thought Process: Linear Thought Content: positive for [place] and positive for [place] Oriented Judgement: Fair Diagnostics Vital Signs (24Hr): Vital Signs - 24 hr 02/01/23 20:10 02/02/23 06:00 Temperature 98.6 F Pulse Rate 94 86 Respiratory Rate 16 16 Blood Pressure 144/74 H 169/80 H Pulse Oximetry 98 97 Oxygen Delivery Method Room Air Room Air BMI result Body Mass Index 22.2 Labs 01/26/23 21:09 01/28/23 09:04 Medications Medications Current Medications Acetaminophen (Acetaminophen 325 Mg Tablet) 650 mg PO Q8H PRN PRN Reason: pain Last Admin: 01/29/23 22:03 Dose: 650 mg Al Hydroxide/Mg Hydroxide (Magnesium Hydrox/Alum Hydrox 30 Ml Oral.Susp) 30 ml PO Q6H PRN PRN Reason: Heartburn/Nausea Amlodipine Besylate (Amlodipine Besylate 10 Mg Tablet) 10 mg PO DAILY [facility]; Protocol Last Admin: 02/02/23 08:22 Dose: 10 mg Atorvastatin Calcium (Atorvastatin Calcium 80 Mg Tablet) 80 mg PO DAILY [facility] Last Admin: 02/02/23 08:22 Dose: 80 mg Cefuroxime Axetil (Cefuroxime Axetil 250 Mg Tablet) 250 mg PO BID [facility] Stop: 02/02/23 21:01 Last Admin: 02/02/23 08:23 Dose: 250 mg Cyanocobalamin (Cyanocobalamin (Vitamin B-12) 1,000 Mcg Tablet) 1,000 mcg PO DAILY [facility] Last Admin: 02/02/23 08:22 Dose: 1,000 mcg Donepezil HCl (Donepezil Hcl 5 Mg Tablet) 5 mg PO BEDTIME [facility] Last Admin: 02/01/23 20:12 Dose: 5 mg Hydroxyzine HCl (Hydroxyzine Hcl 50 Mg Tablet) 50 mg PO Q8H PRN PRN Reason: Anxiety Last Admin: 02/01/23 08:30 Dose: 50 mg Magnesium Hydroxide (Milk Of Magnesia 30 Ml Oral.Susp) 30 ml PO DAILY PRN PRN Reason: Constipation Omeprazole (Omeprazole 20 Mg Capsule.Dr) 20 mg PO DAILY@0630 [facility] Last Admin: 02/02/23 06:06 Dose: 20 mg Pharmacy Consult (Consult Rx Perform Med Rec) 1 each MISCELLANE ONCE PRN PRN Reason: Consult order Sertraline HCl (Sertraline Hcl 50 Mg Tablet) 50 mg PO DAILY [facility] Last Admin: 02/02/23 08:22 Dose: 50 mg Thiamine HCl (Thiamine Hcl 100 Mg Tablet) 100 mg PO DAILY [facility] Last Admin: 02/02/23 08:22 Dose: 100 mg Trazodone HCl (Trazodone Hcl 50 Mg Tablet) 50 mg PO BEDTIME MRX1 PRN PRN Reason: Insomnia Last Admin: 01/31/23 23:34 Dose: 50 mg Vitamin D (Cholecalciferol (Vitamin D3) 25 Mcg Tablet) 125 mcg PO DAILY [facility] Last Admin: 02/02/23 08:21 Dose: 125 mcg Allergies Allergies Allergy/AdvReac Type Severity Reaction Status Date / Time ibuprofen [From Motrin] Allergy Swelling Verified 01/24/23 10:58 Assessment & Plan Assessment & Plan (1) Acute UTI: Status: Inactive Code(s): N39.0 - Urinary tract infection, site not specified (2) Dementia: Status: Inactive Code(s): F03.90 - Unspecified dementia, unspecified severity, without behavioral disturbance, psychotic disturbance, mood disturbance, and anxiety Plan The patient is an elderly, Citizen Of [place] female with a past history of alcohol use disorder, PTSD and depression admitted into the facility since she disclosed suicidal ideation by the plan of jumping of the 4th floor. She had been also actively abusing of alcohol and she had been more disorganized and labile. She was diagnosed with a UTI on the emergency room and already treated. Plan 1. Gather collateral information. 2. Continue with alcohol withdrawal protocol detoxification with lorazepam. 3. We will continue with medical workout. 4. Apparently the patient had a UTI and she had been already treated so will follow she becomes delirious. 5. Will start an antidepressant to target dysphoria and anxiety. 6. The patient is able to contract for safety social we are going to keep her on 15 minutes checks. 7. Discontinue CIWA and Ativan. 8. Start naltrexone 50 mg p.o. daily to target alcohol cravings. 9. Start Aricept 5 mg p.o. q.h.s. Reason for continued inpatient stay Substantial Risk for: inability to function, rapid decompensation and med/psych decompensation Time Spent With Patient Time: Total time managing care of this patient today __20__ minutes.
[2023-02-02 18:00] VITALS: BP 159/76; PULSE 94; TEMP 36.2; O2SAT 95
[2023-02-02] MEDS: Donepezil HCl 5 MG TABLET PO (20:45)
[2023-02-02] MEDS: traZODone HCL 50 MG TABLET PO (20:47)
[2023-02-03 06:00] VITALS: BP 165/81; PULSE 82; RESP 16; TEMP 36.2; O2SAT 98
[2023-02-03] MEDS: Omeprazole 20 MG CAPSULE.DR PO (06:14)
--- NOTE | 2023-02-03 08:14 | PM.PSYDC ---
DS: Providers Provider Date of Service: 02/03/23 Date of admission: 01/27/23 15:21 Date of discharge: 02/03/23 Primary care physician: Anselmo Physician Attending physician on discharge: Sohail Vela DS: Diagnosis Discharge Diagnosis (1) Acute UTI: Status: Inactive (2) Dementia: Status: Inactive DS: Medications Discharge Medications Home Medications: Home Medications Medication Instructions Recorded Confirmed amlodipine 10 mg tablet 10 mg PO DAILY 01/26/23 01/26/23 atorvastatin 80 mg tablet 80 mg PO DAILY 01/26/23 01/26/23 cholecalciferol (vitamin D3) 125 125 mcg PO DAILY 01/26/23 01/26/23 mcg (5,000 unit) capsule cyanocobalamin (vitamin B-12) 1,000 mcg PO DAILY 01/26/23 01/26/23 1,000 mcg tablet losartan 100 1 tab PO DAILY 01/26/23 01/26/23 mg-hydrochlorothiazide 25 mg tablet omeprazole 20 mg capsule,delayed 20 mg PO DAILY 01/26/23 01/26/23 release sertraline 50 mg tablet 50 mg PO QAM 01/26/23 01/26/23 thiamine HCl (vitamin B1) 100 mg 100 mg PO DAILY 01/26/23 01/26/23 tablet (Vitamin B-1) Previous Rx's Medication Instructions Recorded acetaminophen 650 mg 650 mg PO Q8H PRN pain #30 tabs 06/05/20 tablet,extended release (Tylenol Arthritis Pain) Mental Status Exam Mental Status Exam Patient Appearance: Well Grooomed and Appropriate Patient Orientation: Person and Situation Level of Consciousness: Awake and Appropriate Patient Behavior: Guarded and Passive Mood Description: Calm Affect Description: Constricted Patient Cognition Impaired: Yes Ability to Follow Directions: Good Speech Pattern: Clear Hallucinations: None Delusions: Not Present Thought Process: Linear Thought Content: positive for Circumstantial Judgement: Fair Data Data Completed and Pending Completed studies during hospitalization [Text1]: 01/28/23 09:04 Sodium 142 Potassium 3.7 Chloride 109 H Carbon Dioxide 22 Anion Gap 15 BUN 17 H Creatinine 0.81 Estim Creat Clear Calc 43.2 Estimated GFR > 60 Fasting Glucose 136 H Calcium 9.5 Total Bilirubin 0.5 AST 26 ALT 28 Alkaline Phosphatase 67 Total Protein 7.0 Albumin 4.0 Triglycerides 124 Cholesterol 215 LDL Cholesterol, Calc 121 HDL Cholesterol 70 DS: Summary Hospital Course Hospital Course: The patient was initially admitted to the emergency room since she was showing disorganized behavior, irritability and suicidal ideas by jumping of the 4th floor her apartment in the context of chronic alcohol abuse, drinking around 1 case of beer per day. She was assessed on the emergency room of [facility], medically cleared and transferring to this facility for psychiatric stabilization. Please see the HPI of the admission note for further details. On admission, the patient was placed on alcohol withdrawal protocol and she detoxed safely with Ativan in the next 48 hours. We discussed at length risks, benefits, side-effects and alternatives and she agreed to add naltrexone to cut alcohol cravings. The patient did not showed any psychotic symptoms in the unit but she was mostly seclusive in her room participating minimally to group activities. Also, on admission, she was diagnosed with a UTI and was treated with antibiotics. Her confusion and psychotic symptoms resolved very fast to the point that she did not expressed any psychotic symptoms in the unit. The team contact her family and apparently there had been having problems with her behavior. Also, her son, reported that she was diagnosed with dementia a few weeks ago. We started the Aricept with no side effects. The patient signed a 3 day notice, she adamantly denies suicidal or homicidal thoughts denies psychotic symptoms. The patient has poor insight into her alcohol use but she was able to contract for safety. Since there were no safety concerns discharge planning was discussed. Status at Discharge Cognitive/behavioral status at discharge: Mildly impaired at baseline Functional status at discharge: independent ambulation Overall status at discharge: patient is back to baseline Time Spent with Patient Time attestation: Total time managing care of this patient today _30___ minutes. Time spent: Less than 30 minutes Discharge Plan Discharge Anticipated Discharge Date/Time: 02/03/23 11:00 Patient Disposition: Home, Self-Care Discharge Diagnosis: Alcohol use disorder Major depressive disorder Dementia UTI resolved Delirium resolved Referrals: [facility] [Other] - 1 Month (Referral placed for therapy and psychiatry. The [id number] will follow up with you when outreach in home therapy appointment is available. ) [facility] [Other] - 02/03/23 (Your House Carpenter Nanda to contact you post discharge for follow up call. Referral for Personal Care services was placed through [facility] and a nurse from [facility] will provide home visit for assessment of needs following discharge. Behavioral Health Specialist Salvador Faulkner from [facility] will be contacting you and providing home visits until you are able to get therapist at [facility]. He will Wednesday on visiting you in home [phone] Ext [phone][address] Dr Eagle [Other] - 1 Week (Follow up Appointment was scheduled for Wednesday02/08/23 at 2:30pm with Dr. Eagle) Discharge Medications: New donepezil 5 mg Tablet 5 mg PO BEDTIME 30 Days Qty: 30 0RF trazodone 50 mg Tablet 50 mg PO BEDTIME MRX1 PRN (Reason: Insomnia) 30 Days Qty: 30 0RF hydroxyzine HCl 50 mg Tablet 50 mg PO Q8H PRN (Reason: Anxiety) 30 Days Qty: 60 0RF Continued atorvastatin 80 mg tablet 80 mg PO DAILY 30 Days Qty: 30 0RF cyanocobalamin (vitamin B-12) 1,000 mcg tablet 1,000 mcg PO DAILY Qty: 30 0RF thiamine HCl (vitamin B1) [Vitamin B-1] 100 mg tablet 100 mg PO DAILY 30 Days Qty: 30 0RF acetaminophen [Tylenol Arthritis Pain] 650 mg tablet extended release 650 mg PO Q8H PRN (Reason: pain) Qty: 30 0RF amlodipine 10 mg tablet 10 mg PO DAILY 30 Days Qty: 30 0RF omeprazole 20 mg capsule,delayed release(DR/EC) 20 mg PO DAILY 30 Days Qty: 30 0RF sertraline 50 mg tablet 50 mg PO QAM 30 Days Qty: 30 0RF cholecalciferol (vitamin D3) 125 mcg (5,000 unit) capsule 125 mcg PO DAILY Qty: 30 0RF Discontinued losartan-hydrochlorothiazide 100-25 mg tablet 1 tab PO DAILY Discharge Orders: Discharge Order (Routine); Ordered 02/03/23 Ordered By: Sohail Vela Diet: Advance to usual diet Activity on Discharge: As tolerated Stand Alone Forms: Patient Portal Discharge page Care Plan Goals: Care plan goals achieved in this admission Health Concerns: Continue treatment by primary care physician as an outpatient Plan of Treatment: Continue treatment as an outpatient with mental health providers Assessment: Elderly [place] female with a prior history of depression, was brought into the facility for suicidality in the context of alcohol use disorder. In the emergency room, the patient had psychotic symptoms but it resolved after treatment of UTI. She detoxed safely from alcohol in the unit, she was future oriented and able to contract for safety no safety concerns at the moment of discharge. She was discharged with aftercare and ancillary services.
[2023-02-03] MEDS: Cholecalciferol (Vitamin D3) 25 MCG TABLET 125 MCG PO (08:18)
[2023-02-03] MEDS: Thiamine HCL 100 MG TABLET PO (08:18)
[2023-02-03] MEDS: Sertraline HCL 50 MG TABLET PO (08:18)
[2023-02-03] MEDS: amLODIPine Besylate 10 MG TABLET PO (08:19)
[2023-02-03] MEDS: Atorvastatin Calcium 80 MG TABLET PO (08:19)
[2023-02-03] MEDS: Cyanocobalamin (Vitamin B-12) 1,000 MCG TABLET 1000 MCG PO (08:19)
--- NOTE | 2023-02-03 10:21 | PC.NURSE ---
Patient alert and oriented x4. Discharge instructions provided and understood by daughter and patient. MEds reviewed. Belongings reviewed. Patient denies SI/HI/AVH. Able to contract for safety. Patient escorted to front of hospital by staff.
== END 2023-02-03 10:22 | disposition home or self-care (01) | DRG 881 ==
LOC: HO.ED 01-27 09:18 → HO.PGERI 01-27 15:26
PROVIDERS: Internal Medicine; Admitting Provider Psychiatry & Neurology Psychiatry; Emergency Provider Emergency Medicine; Visit Provider Psychiatry & Neurology Psychiatry
DX: F32.9 Major depressive disorder, single episode, unspecified (principal); R45.851 Suicidal ideations; N39.0 Urinary tract infection, site not specified; F05 Delirium due to known physiological condition; F10.10 Alcohol abuse, uncomplicated; F03.90 Unspecified dementia, unspecified severity, without behavioral disturbance, psychotic disturbance, mood disturbance, and anxiety; E78.00 Pure hypercholesterolemia, unspecified; Z20.822 Contact with and (suspected) exposure to COVID-19; Z79.899 Other long term (current) drug therapy
CPT/HCPCS: 36415; 80053; 80061; 80307; 81001; 85025; 87635; 93005; 99285

== ENCOUNTER → 2023-01-27 08:37 | Outpatient (BNV) | payer OTHER, SELFPAY | PROVIDERS: Admitting Provider Psychiatry & Neurology Psychiatry; Emergency Provider Emergency Medicine; Visit Provider Internal Medicine | DX: R94.31 Abnormal electrocardiogram [ECG] [EKG] (principal) | CPT/HCPCS: 93010 ==

== ENCOUNTER → 2023-01-27 15:21 | Outpatient (BNV) | payer OTHER, SELFPAY | PROVIDERS: Admitting Provider Psychiatry & Neurology Psychiatry; Emergency Provider Emergency Medicine; Visit Provider Psychiatry & Neurology Psychiatry | DX: F03.90 Unspecified dementia, unspecified severity, without behavioral disturbance, psychotic disturbance, mood disturbance, and anxiety (principal); N39.0 Urinary tract infection, site not specified | CPT/HCPCS: 90792; 99231; 99232; 99238 ==

== ENCOUNTER 2023-02-12 09:24 | Emergency (ER) | payer OTHER, SELFPAY ==
[2023-02-12 09:29] VITALS: BP 157/84; BP 171/77; PULSE 96; PULSE 98; RESP 16; TEMP 36.2; O2SAT 97; O2SAT 98; BMI 22.9
[2023-02-12 11:41] LABS: Appearance Urine Clear; Color Urine Yellow; Glucose Urine UA Negative (Negative); Leukocyte Esterase Urine Small (1+) (Negative); Nitrite Urine Positive (Negative); Specific Gravity - Urine <= 1.005 (1.005-1.025); UMIC TRIGGER UACC YES; Urine Blood Negative (Negative); Urine Ketones Negative (Negative); Urine Protein Negative (Neg-Trace)
[2023-02-12 11:43] LABS: Bacteria Urine 4+ (None Seen); Hyaline Casts Urine 0-2 /LPF (0-2); RBC Urine 0-2 /HPF (0-2); Squamous Epithelial Cell Urine 0-2 /HPF (0-2); UACC Culture Trigger YES
[2023-02-12 11:45] LABS: Hematocrit 42.3 % (37.0-47.0); Hemoglobin 13.8 g/dl (12.0-16.0); Mean Corpuscular HGB Conc 32.6 g/dl (31.0-35.0); Mean Corpuscular Hemoglobin 28.9 pg (27.0-33.0); Mean Corpuscular Volume 88.5 fL (80.0-98.0); Mean Platelet Volume 10.2 fL (9.4-12.3); Platelet Count 326 X10*3/uL (160-400); Red Blood Count 4.78 X10*6/uL (4.20-5.50); Red Cell Distribution Width 12.5 % (11.0-16.0); White Blood Count 9.1 X10*3/uL (4.8-10.8)
[2023-02-12 11:49] LABS: Amphetamine Screen Urine Not Detected (Not Detect); Barbiturates, Urine Not Detected (Not Detect); Benzodiazepines Screen Urine Not Detected (Not Detect); Cannabinoid Screen Urine Not Detected (Not Detect); Cocaine Screen Urine Not Detected (Not Detect); Opiate Screen Urine Not Detected (Not Detect); Phencyclidine Screen Urine Not Detected (Not Detect)
[2023-02-12 11:56] LABS: Alanine Aminotransferase 35 U/L (0-31); Albumin Level 4.3 g/dL (3.5-5.0); Alkaline Phosphatase 69 U/L (39-117); Anion Gap 14 (12-20); Aspartate Amino Transferase 23 U/L (5-31); Bilirubin Total 0.3 mg/dL (0.0-1.0); Blood Urea Nitrogen 9 mg/dL (9-16); Calcium 10.2 mg/dL (8.4-10.2); Carbon Dioxide 24 mmol/L (22-29); Chloride 111 mmol/L (96-108); Creatinine Clr Calc Pharmacy 44.8; Estimated Glomerular Filt Rate > 60; Glucose Random 123 mg/dL (60-115); Potassium 3.2 mmol/L (3.3-5.1); Sodium 146 mmol/L (135-145); Total Protein 7.8 g/dL (6.5-8.0)
[2023-02-12] MEDS: LORazepam 1 MG TABLET PO (12:50)
--- NOTE | 2023-02-12 13:41 | ED_ITS ---
HPI - Psych General Chief Complaint: Psychiatric Symptoms Stated Complaint: SI no plan per EMS Time Seen by Provider: 02/12/23 10:00 Source: patient Mode of arrival: ambulatory Limitations: no limitations History of Present Illness HPI Narrative: Patient is a 77 year old female with history of depression who was brought in by her daughter for suicidal ideations. Patient's daughter reported that her mother has been struggling due to recent life events. Patient did not express a plan. Patient is anxious and pacing the unit and has also reported visual hallucinations. Patient tells me she has been having increasing life stressors, and stresses her out that her psychiatric medications are not working. Patient reports this morning she awoke with severe depression and suicidal ideation she tells me her plan is not specific but she is willing to do anything to . She reports intermittent visual and auditory hallucinations reports shadows are speaking to her unable to tell me exactly what they are saying. She was at home with her and feels safe. Denies drugs, alcohol and tobacco. No medical complaints. Related Data Home Medications Medication Instructions Recorded Confirmed hydroxyzine HCl 50 mg tablet 50 mg PO Q6H PRN Anxiety 02/12/23 losartan 100 1 tab PO DAILY 02/12/23 mg-hydrochlorothiazide 25 mg tablet omeprazole 20 mg capsule,delayed 20 mg PO DAILY@0630 02/12/23 release sertraline 50 mg tablet 50 mg PO DAILY 02/12/23 trazodone 100 mg tablet 100 mg PO BEDTIME 02/12/23 Previous Rx's Medication Instructions Recorded acetaminophen 650 mg 650 mg PO Q8H PRN pain #30 tabs 02/03/23 tablet,extended release (Tylenol Arthritis Pain) amlodipine 10 mg tablet 10 mg PO DAILY 30 days #30 tabs 02/03/23 atorvastatin 80 mg tablet 80 mg PO DAILY 30 days #30 tabs 02/03/23 cholecalciferol (vitamin D3) 125 125 mcg PO DAILY #30 caps 02/03/23 mcg (5,000 unit) capsule cyanocobalamin (vitamin B-12) 1,000 mcg PO DAILY #30 tabs 02/03/23 1,000 mcg tablet donepezil 5 mg tablet 5 mg PO BEDTIME 30 days #30 tabs 02/03/23 thiamine HCl (vitamin B1) 100 mg 100 mg PO DAILY 30 days #30 tabs 02/03/23 tablet (Vitamin B-1) Allergies Allergy/AdvReac Type Severity Reaction Status Date / Time ibuprofen [From Motrin] Allergy Swelling Verified 02/12/23 09:42 Review of Systems Review of Systems: Constitutional : No Weight loss, No Fever, No Chills, No Fatigue, No Malaise ENT/Mouth : No sore throat, No Rhinorrhea Eyes: No Eye Pain, No Swelling, No Redness Cardiovascular : No Chest Pain, No SOB, No Dyspnea on Exertion, No Orthopnea, No Edema, No Palpitations Respiratory : No Cough, No Sputum, No Wheezing Gastrointestinal : No Nausea, No Vomiting, No Diarrhea, No Constipation, No abdominal Pain, No Hematochezia, No Melena Genitourinary : No Dysuria, No Urinary Frequency, No Hematuria, Musculoskeletal : No joint pain, No Myalgias, No Joint Swelling Skin : No Skin Lesions, No rash Neuro : No Weakness, No Numbness, No Dizziness, No Headache Psych : + Anxiety and Depression, + SI no HI All other systems reviewed and are negative Yes all other systems are reviewed and are negative [facility] Past Medical History Attestation statement: The following information was validated with the patient. 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 Oriented X3.? No acute distress.? Head: Normocephalic, atraumatic, no step-offs or deformities Eyes: Pupils equal, round and reactive to light.?? CVS: Normal heart rate and rhythm.? Pulses normal.? Respiratory: No respiratory distress.? Breath sounds normal.? Skin: Skin warm and dry.? Normal skin color.? Normal skin turgor.? Extremities: No lower extremity edema.? No calf ttp. 5/5 strength to bilateral upper and lower extremities Neuro: Oriented X 3.? No motor deficit.? No sensory deficit. CN 2-12 intact Course Reevaluation(s) Reevaluation #1: CBC with no acute findings. Chemistry with potassium of 3.2 will give oral potassium at this time. No other acute electrolyte abnormalities requiring intervention. Urine with 4+ bacteria, positive nitrates and positive leukocyte esterases. Will treat with Ceftin p.o.. Urine toxicology negative. COVID negative. Time: 14:54 Reevaluation #2: This time patient will be placed into observation to allow more time to be evaluated by care team. At time observation started patient, cooperative no acute distress will continue to monitor Time: 14:55 Medications Administered Discontinued Medications Generic Name Dose Route Start Last Admin Trade Name Freq PRN Reason Stop Dose Admin Cefuroxime Axetil 250 mg 02/12/23 13:32 02/12/23 14:12 Cefuroxime Axetil 250 Mg Tablet PO 02/12/23 13:33 250 mg ONCE ONE Administration Lorazepam 1 mg 02/12/23 12:31 02/12/23 12:50 Lorazepam 1 Mg Tablet PO 02/12/23 12:32 1 mg ONCE ONE Administration Medical Decision Making Medical Decision Making [facility] Narrative: 1400 69-year-old female presents with depression, suicidal ideation since this morning brought in by daughter. Physical exam benign. Patient will appearing. Likely depression versus anxiety versus bipolar versus schizophrenia. Unlikely electrolyte derangements, delirium, metabolic derangements. Will rule out UTI. Plan medical clearance evaluation by care team Differential Diagnosis Differential Diagnoses: The differential diagnosis associated with the presentation includes Likely depression versus anxiety versus bipolar versus schizophrenia. Unlikely electrolyte derangements, delirium, metabolic derangements. Will rule out UTI. Admission/Observation Consideration of admission/observation: Escalation of care including admission/observation considered possible Consult Healthcare Provider Management of the patient was discussed with: Behavioral Health Provider Lab Data MDM Lab Attestation statement: I reviewed the patient's lab results. 02/12/23 11:33 02/12/23 11:33 Labs: Lab Results 02/12/23 02/12/23 02/12/23 Range/Units 11:33 11:33 11:33 WBC 9.1 (4.8-10.8) X10*3/uL RBC 4.78 D (4.20-5.50) X10*6/uL Hgb 13.8 (12.0-16.0) g/dl Hct 42.3 (37.0-47.0) % MCV 88.5 (80.0-98.0) fL MCH 28.9 (27.0-33.0) pg MCHC 32.6 (31.0-35.0) g/dl RDW 12.5 (11.0-16.0) % Plt Count 326 D (160-400) X10*3/uL MPV 10.2 (9.4-12.3) fL Absolute Nucleated RBC 0.000 (0.0-0.012) X10*3/uL Nucleated RBC % (auto) 0.0 (0.0-0.2) /100WBC Sodium 146 H (135-145) mmol/L Potassium 3.2 L (3.3-5.1) mmol/L Chloride 111 H (96-108) mmol/L Carbon Dioxide 24 (22-29) mmol/L Anion Gap 14 (12-20) BUN 9 (9-16) mg/dL Creatinine 0.78 (0.5-1.4) mg/dL Estim Creat Clear Calc 44.8 Estimated GFR > 60 Random Glucose 123 H (60-115) mg/dL Calcium 10.2 D (8.4-10.2) mg/dL Total Bilirubin 0.3 (0.0-1.0) mg/dL AST 23 (5-31) U/L ALT 35 H (0-31) U/L Alkaline Phosphatase 69 (39-117) U/L Total Protein 7.8 (6.5-8.0) g/dL Albumin 4.3 (3.5-5.0) g/dL Urine Color Yellow Urine Appearance Clear Urine pH 6.0 (5.0-9.0) Ur Specific [place] <= 1.005 (1.005-1.025) Urine Protein Negative (Neg-Trace) mg/dL Urine Glucose (UA) Negative (Negative) mg/dL Urine Ketones Negative (Negative) mg/dL Urine Blood Negative (Negative) Urine Nitrite Positive H (Negative) Ur Leukocyte Esterase Small (1+) H (Negative) Urine RBC 0-2 (0-2) /HPF Urine WBC 6-10 H (0-5) /HPF Ur Squamous Epith Cells 0-2 (0-2) /HPF Urine Bacteria 4+ (None Seen) Hyaline Casts 0-2 (0-2) /LPF Urine Opiates Screen (Not Detect) Urine Fentanyl Screen (Not Detect) Ur Barbiturates Screen (Not Detect) Ur Phencyclidine Scrn (Not Detect) Ur Amphetamines Screen (Not Detect) U Benzodiazepines Scrn (Not Detect) Urine Cocaine Screen (Not Detect) U Marijuana (THC) Screen (Not Detect) 02/12/23 Range/Units 11:33 WBC (4.8-10.8) X10*3/uL RBC (4.20-5.50) X10*6/uL Hgb (12.0-16.0) g/dl Hct (37.0-47.0) % MCV (80.0-98.0) fL MCH (27.0-33.0) pg MCHC (31.0-35.0) g/dl RDW (11.0-16.0) % Plt Count (160-400) X10*3/uL MPV (9.4-12.3) fL Absolute Nucleated RBC (0.0-0.012) X10*3/uL Nucleated RBC % (auto) (0.0-0.2) /100WBC Sodium (135-145) mmol/L Potassium (3.3-5.1) mmol/L Chloride (96-108) mmol/L Carbon Dioxide (22-29) mmol/L Anion Gap (12-20) BUN (9-16) mg/dL Creatinine (0.5-1.4) mg/dL Estim Creat Clear Calc Estimated GFR Random Glucose (60-115) mg/dL Calcium (8.4-10.2) mg/dL Total Bilirubin (0.0-1.0) mg/dL AST (5-31) U/L ALT (0-31) U/L Alkaline Phosphatase (39-117) U/L Total Protein (6.5-8.0) g/dL Albumin (3.5-5.0) g/dL Urine Color Urine Appearance Urine pH (5.0-9.0) Ur Specific [place] (1.005-1.025) Urine Protein (Neg-Trace) mg/dL Urine Glucose (UA) (Negative) mg/dL Urine Ketones (Negative) mg/dL Urine Blood (Negative) Urine Nitrite (Negative) Ur Leukocyte Esterase (Negative) Urine RBC (0-2) /HPF Urine WBC (0-5) /HPF Ur Squamous Epith Cells (0-2) /HPF Urine Bacteria (None Seen) Hyaline Casts (0-2) /LPF Urine Opiates Screen Not Detected (Not Detect) Urine Fentanyl Screen Not Detected (Not Detect) Ur Barbiturates Screen Not Detected (Not Detect) Ur Phencyclidine Scrn Not Detected (Not Detect) Ur Amphetamines Screen Not Detected (Not Detect) U Benzodiazepines Scrn Not Detected (Not Detect) Urine Cocaine Screen Not Detected (Not Detect) U Marijuana (THC) Screen Not Detected (Not Detect) Core Measures AMI core measures followed: Yes Measure exclusions: not indicated Critical Care Time Critical Care Time Critical Care Time: No Discharge Plan Discharge Clinical Impression: Depression, Suicidal ideation Patient Disposition: Still a Patient Instructions: Depression (ED) Prescriptions: No Action donepezil 5 mg Tablet 5 mg PO BEDTIME 30 Days Qty: 30 0RF atorvastatin 80 mg tablet 80 mg PO DAILY 30 Days Qty: 30 0RF cyanocobalamin (vitamin B-12) 1,000 mcg tablet 1,000 mcg PO DAILY Qty: 30 0RF thiamine HCl (vitamin B1) [Vitamin B-1] 100 mg tablet 100 mg PO DAILY 30 Days Qty: 30 0RF acetaminophen [Tylenol Arthritis Pain] 650 mg tablet extended release 650 mg PO Q8H PRN (Reason: pain) Qty: 30 0RF amlodipine 10 mg tablet 10 mg PO DAILY 30 Days Qty: 30 0RF cholecalciferol (vitamin D3) 125 mcg (5,000 unit) capsule 125 mcg PO DAILY Qty: 30 0RF losartan-hydrochlorothiazide 100-25 mg tablet 1 tab PO DAILY trazodone 100 mg tablet 100 mg PO BEDTIME hydroxyzine HCl 50 mg tablet 50 mg PO Q6H PRN (Reason: Anxiety) omeprazole 20 mg capsule,delayed release(DR/EC) 20 mg PO DAILY@0630 sertraline 50 mg tablet 50 mg PO DAILY
--- NOTE | 2023-02-12 15:21 | PHA.MEDREC ---
Pharmacy Consult ? Medication Reconciliation Pharmacy has completed the medication reconciliation. Spoke to patient's daughter Tosha to confirm meds. Per patient's daughter, most of her medication bottles like atorvastatin and losartan-HCTZ were completely full and filled on 12/20/22. Unsure if patient has been adherent to their medications.
[2023-02-12 16:19] VITALS: BP 146/77; PULSE 73; RESP 18; TEMP 36.4; O2SAT 97
--- NOTE | 2023-02-12 17:16 | MHC.CARE ---
patient seen by CARE team, is a voluntary ree psych. no current ree beds for female, will be re-evaluated tomorrow by CARE. Patient's daughter, Tosha aware of plan and should be contacted once patient is re-evaluated.
[2023-02-12 19:15] LABS: Ethanol < 10 mg/dL
[2023-02-12 19:20] LABS: Acetaminophen LAB < 17 mcg/mL (<30); Salicylate < 5.0 mg/dL (15-30)
[2023-02-13] MEDS: traZODone HCL 100 MG TABLET PO ×2 (00:30→20:01)
[2023-02-13 03:36] VITALS: BP 189/89; PULSE 92; RESP 18; TEMP 36.6; O2SAT 97
--- NOTE | 2023-02-13 05:13 | PC.NURSE ---
Patient slept through the night, no distress observed/reported, behavior non concerning, disposition per care team is voluntary inpatient ree bed search, search exhausted yesterday, med rec completed/pending provider's approval, + for UTI Ceftin 250 mg BID initiated, medication compliant, patient is hypertensive, labs completed/resulted, will continue to monitor.
[2023-02-13 12:00] LABS: COVID-19 Test Negative (Negative); IDNOW Serial# BCCEAD1C
--- NOTE | 2023-02-13 12:37 | ECG_ITS ---
Test Reason : QT INTERVAL Blood Pressure : / mmHG Vent. Rate : 081 BPM Atrial Rate : 081 BPM P-R Int : 136 ms QRS Dur : 092 ms QT Int : 394 ms P-R-T Axes : 063 033 057 degrees QTc Int : 457 ms Normal sinus rhythm Normal ECG When compared with ECG of 27-JAN-2023 08:37, No significant change was found Referred By: Steph Bacon Electronically Signed By:OH HUSAIN
[2023-02-13 18:59] VITALS: BP 186/100; PULSE 89; RESP 18; TEMP 36.2; O2SAT 98
[2023-02-13] MEDS: amLODIPine Besylate 10 MG TABLET PO (19:11)
[2023-02-13] MEDS: Donepezil HCl 5 MG TABLET PO (20:01)
[2023-02-14 04:50] VITALS: BP 158/91; PULSE 98; RESP 16; TEMP 36.1; O2SAT 96
[2023-02-14] MEDS: Omeprazole 20 MG CAPSULE.DR PO (05:27)
--- NOTE | 2023-02-14 06:06 | PC.NURSE ---
Patient slept through the night, no distress observed/reported, behavior non concerning, disposition per care team is voluntary inpatient ree bed search, search exhausted yesterday, medication compliant, labs completed/resulted, will continue to monitor.
[2023-02-14] MEDS: Cyanocobalamin (Vitamin B-12) 1,000 MCG TABLET 1000 MCG PO (08:33)
[2023-02-14] MEDS: Atorvastatin Calcium 80 MG TABLET PO (08:33)
[2023-02-14] MEDS: amLODIPine Besylate 10 MG TABLET PO (08:33)
[2023-02-14] MEDS: Thiamine HCL 100 MG TABLET PO (08:33)
[2023-02-14] MEDS: Sertraline HCL 50 MG TABLET PO (08:33)
[2023-02-14] MEDS: Losartan Potassium 50 MG TABLET 100 MG PO (08:33)
[2023-02-14] MEDS: Cholecalciferol (Vitamin D3) 25 MCG TABLET 125 MCG PO (08:33)
[2023-02-14 08:37] VITALS: BP 136/75; PULSE 90; RESP 16; TEMP 36.2; O2SAT 98
[2023-02-14 12:48] LABS: Fentanyl, urine SEE COMMENTS (Not Detect)
--- NOTE | 2023-02-14 14:58 | MHC.CARE ---
Tw conducted an [facility] bed search for this patinet. PT diso has been changed to D/c
[2023-02-18 09:17] LABS: Norfentanyl, Ur NEGATIVE
[2023-03-05 12:35] LABS: Fentanyl, Ur NEGATIVE
== END 2023-02-14 15:16 | disposition home or self-care (01) ==
PROVIDERS: Emergency Medicine; Physician Assistant; Emergency Provider Emergency Medicine Emergency Medical Services; PCP Internal Medicine
DX: R45.851 Suicidal ideations (principal); F32.A Depression, unspecified; F41.9 Anxiety disorder, unspecified; R44.1 Visual hallucinations; N39.0 Urinary tract infection, site not specified; B96.1 Klebsiella pneumoniae [K. pneumoniae] as the cause of diseases classified elsewhere; Z20.822 Contact with and (suspected) exposure to COVID-19; I10 Essential (primary) hypertension; E78.5 Hyperlipidemia, unspecified; Z79.899 Other long term (current) drug therapy
CPT/HCPCS: 36415; 80053; 80143; 80179; 80307; 80354; 81001; 85027; 87086; 87088; 87186; 87635; 93005; 99284; 99285; S9485

== ENCOUNTER 2023-04-16 13:40 | Outpatient (REF) | payer OTHER, SELFPAY | END 2023-04-16 13:41 | disposition home or self-care (01) | LOC: HO.MAMMO 13:40 | PROVIDERS: Visit Provider Internal Medicine | DX: Z12.31 Encounter for screening mammogram for malignant neoplasm of breast (principal) | CPT/HCPCS: 77063; 77067 ==

== ENCOUNTER → 2023-04-16 13:45 | Outpatient (BNV) | payer OTHER, SELFPAY | PROVIDERS: Visit Provider Radiology Diagnostic Radiology | DX: Z12.31 Encounter for screening mammogram for malignant neoplasm of breast (principal) | CPT/HCPCS: 77063; 77067 ==

== ENCOUNTER 2023-05-13 11:37 | Outpatient (REF) | payer OTHER, SELFPAY ==
[2023-05-13 11:57] LABS: MANUAL DIFF FLAG NO
[2023-05-13 12:21] LABS: Basophils Percent Auto 0.6 % (0-2); Eosinophils Absolute Auto 0.2 X10*3/uL (0.0-0.4); Eosinophils Percent Auto 3.3 % (0-4); Hematocrit 32.8 % (37.0-47.0); Hemoglobin 10.6 g/dl (12.0-16.0); Imm Gran Abs Auto 0.05 X10*3/uL (0.00-0.03); Imm Gran Pct Auto 0.7 % (0.0-0.4); Lymphocytes Absolute Auto 2.1 X10*3/uL (1.2-4.9); Lymphocytes Percent Auto 29.3 % (20-40); Mean Corpuscular HGB Conc 32.3 g/dl (31.0-35.0); Mean Corpuscular Hemoglobin 26.6 pg (27.0-33.0); Mean Corpuscular Volume 82.2 fL (80.0-98.0); Mean Platelet Volume 10.3 fL (9.4-12.3); Monocytes Absolute Auto 0.5 X10*3/uL (0.1-1.2); Neutrophils Absolute Auto 4.2 x10*3/uL (2.0-8.3); Neutrophils Percent Auto 59.1 % (45-73); Platelet Count 254 X10*3/uL (160-400); Red Blood Count 3.99 X10*6/uL (4.20-5.50); Red Cell Distribution Width 13.7 % (11.0-16.0); White Blood Count 7.2 X10*3/uL (4.8-10.8)
[2023-05-13 13:07] LABS: Alanine Aminotransferase 37 U/L (0-31); Albumin Level 4.1 g/dL (3.5-5.0); Alkaline Phosphatase 74 U/L (39-117); Anion Gap 11 (12-20); Aspartate Amino Transferase 25 U/L (5-31); Bilirubin Total 0.3 mg/dL (0.0-1.0); Blood Urea Nitrogen 13 mg/dL (9-16); Calcium 9.5 mg/dL (8.4-10.2); Carbon Dioxide 30 mmol/L (22-29); Chloride 105 mmol/L (96-108); Cholesterol 155 mg/dL (<200); Estimated Glomerular Filt Rate > 60; Glucose Random 97 mg/dL (60-115); HDL Cholesterol 54 mg/dL (>40); LDL Cholesterol Calculated 77 mg/dL (<100); Potassium 2.8 mmol/L (3.3-5.1); Sodium 143 mmol/L (135-145); Total Protein 7.1 g/dL (6.5-8.0); Triglycerides 120 mg/dL (<150)
[2023-05-13 13:27] LABS: Vitamin B12 1446 pg/mL (200-900)
== END 2023-05-13 11:38 | disposition home or self-care (01) ==
LOC: HO.LAB 11:37
PROVIDERS: PCP Internal Medicine; Visit Provider Internal Medicine
DX: E78.00 Pure hypercholesterolemia, unspecified (principal); F10.11 Alcohol abuse, in remission; F32.5 Major depressive disorder, single episode, in full remission; I10 Essential (primary) hypertension
CPT/HCPCS: 36415; 80053; 80061; 82607; 84443; 85025

== ENCOUNTER 2023-11-01 10:25 | Outpatient (REF) | payer OTHER, SELFPAY ==
[2023-11-01 10:52] LABS: MANUAL DIFF FLAG NO
[2023-11-01 11:39] LABS: Basophils Absolute Auto 0.1 X10*3/uL (0.0-0.2); Basophils Percent Auto 0.5 % (0-2); Eosinophils Absolute Auto 0.3 X10*3/uL (0.0-0.4); Hematocrit 34.1 % (37.0-47.0); Hemoglobin 11.1 g/dl (12.0-16.0); Imm Gran Abs Auto 0.05 X10*3/uL (0.00-0.03); Imm Gran Pct Auto 0.5 % (0.0-0.4); Lymphocytes Absolute Auto 2.1 X10*3/uL (1.2-4.9); Lymphocytes Percent Auto 20.9 % (20-40); Mean Corpuscular HGB Conc 32.6 g/dl (31.0-35.0); Mean Corpuscular Hemoglobin 26.8 pg (27.0-33.0); Mean Corpuscular Volume 82.4 fL (80.0-98.0); Mean Platelet Volume 10.2 fL (9.4-12.3); Monocytes Absolute Auto 0.8 X10*3/uL (0.1-1.2); Monocytes Percent Auto 8.4 % (2-11); Neutrophils Absolute Auto 6.7 x10*3/uL (2.0-8.3); Neutrophils Percent Auto 66.7 % (45-73); Platelet Count 251 X10*3/uL (160-400); Red Blood Count 4.14 X10*6/uL (4.20-5.50); Red Cell Distribution Width 14.6 % (11.0-16.0); White Blood Count 10.1 X10*3/uL (4.8-10.8)
[2023-11-01 12:25] LABS: Ferritin 102 ng/mL (10-250)
== END 2023-11-01 10:26 | disposition home or self-care (01) ==
LOC: HO.LAB 10:25
PROVIDERS: PCP Internal Medicine; Visit Provider Internal Medicine
DX: D64.9 Anemia, unspecified (principal); F10.11 Alcohol abuse, in remission; G62.1 Alcoholic polyneuropathy; I10 Essential (primary) hypertension
CPT/HCPCS: 36415; 82728; 85025

== ENCOUNTER 2023-12-07 09:45 | Outpatient (REF) | payer OTHER, SELFPAY ==
[2023-12-07 11:25] LABS: Alanine Aminotransferase 21 U/L (0-31); Albumin Level 4.1 g/dL (3.5-5.0); Alkaline Phosphatase 68 U/L (39-117); Anion Gap 11 (12-20); Aspartate Amino Transferase 19 U/L (5-31); Bilirubin Total 0.4 mg/dL (0.0-1.0); Calcium 10.1 mg/dL (8.4-10.2); Carbon Dioxide 30 mmol/L (22-29); Chloride 103 mmol/L (96-108); Cholesterol 178 mg/dL (<200); Estimated Glomerular Filt Rate 48; Glucose Random 86 mg/dL (60-115); HDL Cholesterol 69 mg/dL (>40); LDL Cholesterol Calculated 86 mg/dL (<100); Potassium 4.1 mmol/L (3.3-5.1); Sodium 140 mmol/L (135-145); Total Protein 7.2 g/dL (6.5-8.0); Triglycerides 116 mg/dL (<150)
[2023-12-07 11:32] LABS: Vitamin D 25-OH Total 69.1 ng/mL (>30)
[2023-12-07 11:50] LABS: Blood Urea Nitrogen 15 mg/dL (9-16)
== END 2023-12-07 09:46 | disposition home or self-care (01) ==
LOC: HO.LAB 09:45
PROVIDERS: PCP Internal Medicine; Visit Provider Internal Medicine
DX: D64.9 Anemia, unspecified (principal); F10.11 Alcohol abuse, in remission; I10 Essential (primary) hypertension; M51.16 Intervertebral disc disorders with radiculopathy, lumbar region; M81.8 Other osteoporosis without current pathological fracture
CPT/HCPCS: 36415; 80053; 80061; 82306

== ENCOUNTER 2024-04-24 10:52 | Outpatient (REF) | payer OTHER, SELFPAY ==
[2024-04-24 12:27] LABS: Alanine Aminotransferase 34 U/L (0-31); Albumin Level 4.5 g/dL (3.5-5.0); Alkaline Phosphatase 88 U/L (39-117); Anion Gap 14 (12-20); Aspartate Amino Transferase 30 U/L (5-31); Bilirubin Total 0.8 mg/dL (0.0-1.0); Blood Urea Nitrogen 18 mg/dL (9-16); Calcium 10.3 mg/dL (8.4-10.2); Carbon Dioxide 26 mmol/L (22-29); Chloride 100 mmol/L (96-108); Cholesterol 182 mg/dL (<200); Estimated Glomerular Filt Rate 46; Glucose Random 108 mg/dL (60-115); HDL Cholesterol 74 mg/dL (>40); LDL Cholesterol Calculated 74 mg/dL (<100); Potassium 3.9 mmol/L (3.3-5.1); Sodium 136 mmol/L (135-145); Total Protein 7.8 g/dL (6.5-8.0); Triglycerides 172 mg/dL (<150)
[2024-04-24 12:34] LABS: Vitamin D 25-OH Total 77.6 ng/mL (>30)
== END 2024-04-24 10:53 | disposition home or self-care (01) ==
LOC: HO.LAB 10:52
PROVIDERS: PCP Internal Medicine; Visit Provider Internal Medicine
DX: D64.9 Anemia, unspecified (principal); F10.11 Alcohol abuse, in remission; I10 Essential (primary) hypertension; M51.16 Intervertebral disc disorders with radiculopathy, lumbar region; M81.8 Other osteoporosis without current pathological fracture
CPT/HCPCS: 36415; 80053; 80061; 82306

== ENCOUNTER 2024-05-08 12:33 | Outpatient (REF) | payer OTHER, SELFPAY ==
--- NOTE | ~2024-05-08 | MM_ITS ---
EXAMINATION: MM SCREENING DIGITAL BREAST TOMOSYNTHESIS, BILATERAL CLINICAL INFORMATION: Screening. Asymptomatic. COMPARISON: Mammography: Comparison is made with available priors TECHNIQUE: Digital breast mammography with tomosynthesis is performed in both the craniocaudal and mediolateral oblique views along with computer-aided detection (CAD). FINDINGS: There are scattered areas of fibroglandular density (ACR BI-RADS breast composition Category b). There are no significant masses, abnormal calcifications, or other abnormalities. MM/MM tomosynthesis screening BI IMPRESSION: No mammographic evidence of malignancy. ASSESSMENT: BI-RADS BI-RADS 1 - Negative RECOMMENDATION: Routine annual mammography screening. 1 year F/U This examination should not preclude the clinical evaluation of a suspicious palpable abnormality. This patient's information was entered into a reminder system with a target due date for their next mammogram. Electronically signed by: Kiana Hou DO 05/17/2024 12:07 PM [facility]
== END 2024-05-08 12:34 | disposition home or self-care (01) ==
LOC: HO.MAMMO 12:33
PROVIDERS: PCP Internal Medicine; Visit Provider Internal Medicine
DX: Z12.31 Encounter for screening mammogram for malignant neoplasm of breast (principal)
CPT/HCPCS: 77063; 77067

== ENCOUNTER → 2024-05-08 13:00 | Outpatient (BNV) | payer OTHER, SELFPAY | PROVIDERS: PCP Internal Medicine; Visit Provider Internal Medicine | DX: Z12.31 Encounter for screening mammogram for malignant neoplasm of breast (principal) | CPT/HCPCS: 77063; 77067 ==

== ENCOUNTER 2024-09-04 09:38 | Outpatient (REF) | payer OTHER, SELFPAY ==
[2024-09-04 11:54] LABS: Albumin Level 4.1 g/dL (3.5-5.0); Alkaline Phosphatase 85 U/L (39-117); Anion Gap 11 (12-20); Aspartate Amino Transferase 23 U/L (5-31); Bilirubin Total 0.4 mg/dL (0.0-1.0); Blood Urea Nitrogen 15 mg/dL (9-16); Calcium 9.4 mg/dL (8.4-10.2); Carbon Dioxide 25 mmol/L (22-29); Chloride 107 mmol/L (96-108); Estimated Glomerular Filt Rate > 60; Glucose Random 91 mg/dL (60-115); Potassium 3.9 mmol/L (3.3-5.1); Sodium 139 mmol/L (135-145); Total Protein 7.8 g/dL (6.5-8.0)
[2024-09-04 12:16] LABS: Alanine Aminotransferase 26 U/L (0-31)
== END 2024-09-04 09:39 | disposition home or self-care (01) ==
LOC: HO.LAB 09:38
PROVIDERS: PCP Internal Medicine; Visit Provider Internal Medicine
DX: E78.00 Pure hypercholesterolemia, unspecified (principal); F10.11 Alcohol abuse, in remission; F33.42 Major depressive disorder, recurrent, in full remission; I10 Essential (primary) hypertension
CPT/HCPCS: 36415; 80053

== ENCOUNTER 2024-12-15 09:45 | Outpatient (REF) | payer OTHER, SELFPAY ==
[2024-12-15 11:07] LABS: Alanine Aminotransferase 21 U/L (0-31); Albumin Level 4.5 g/dL (3.5-5.0); Alkaline Phosphatase 103 U/L (39-117); Anion Gap 12 (12-20); Aspartate Amino Transferase 26 U/L (5-31); Bilirubin Total 0.6 mg/dL (0.0-1.0); Blood Urea Nitrogen 13 mg/dL (9-16); Calcium 9.7 mg/dL (8.4-10.2); Carbon Dioxide 26 mmol/L (22-29); Chloride 100 mmol/L (96-108); Cholesterol 200 mg/dL (<200); Estimated Glomerular Filt Rate 55; Glucose Random 95 mg/dL (60-115); HDL Cholesterol 71 mg/dL (>40); LDL Cholesterol Calculated 93 mg/dL (<100); Potassium 3.9 mmol/L (3.3-5.1); Sodium 134 mmol/L (135-145); Total Protein 7.5 g/dL (6.5-8.0); Triglycerides 180 mg/dL (<150)
== END 2024-12-15 09:46 | disposition home or self-care (01) ==
LOC: HO.LAB 09:45
PROVIDERS: PCP Internal Medicine; Visit Provider Internal Medicine
DX: E78.00 Pure hypercholesterolemia, unspecified (principal); F10.10 Alcohol abuse, uncomplicated; F32.2 Major depressive disorder, single episode, severe without psychotic features; I10 Essential (primary) hypertension
CPT/HCPCS: 36415; 80053; 80061

== ENCOUNTER → 2025-05-10 13:00 | Outpatient (BNV) | payer OTHER, SELFPAY | PROVIDERS: PCP Internal Medicine; Visit Provider Internal Medicine | DX: Z12.31 Encounter for screening mammogram for malignant neoplasm of breast (principal) | CPT/HCPCS: 77063; 77067 ==

== ENCOUNTER 2025-05-10 13:03 | Outpatient (REF) | payer OTHER, SELFPAY | END 2025-05-10 13:04 | disposition home or self-care (01) | LOC: HO.MAMMO 13:03 | PROVIDERS: PCP Internal Medicine; Visit Provider Internal Medicine | DX: Z12.31 Encounter for screening mammogram for malignant neoplasm of breast (principal) | CPT/HCPCS: 77063; 77067 ==

== ENCOUNTER 2025-06-03 12:57 | Emergency (ER) | payer OTHER, SELFPAY ==
--- NOTE | ~2025-06-03 | XR_ITS ---
CLINICAL HISTORY: fall L wrist pain 4 view left wrist Comparison: None provided Findings: No fractures or dislocations. Moderate left wrist osteoarthritis. No radiopaque foreign body. IMPRESSION: 1. No acute fracture or traumatic subluxation . This document has been electronically signed by: Loida Renner MD on 06/03/2025 14:08:03
--- NOTE | ~2025-06-03 | CT_ITS ---
CLINICAL HISTORY: fall +HS (last week) CT cervical spine without contrast Comparison: CT cervical spine 09/25/2022 Findings: Exam interpretation limited due to interference from patient motion artifact. Cervical spine lordosis is maintained. No acute fracture or traumatic subluxation. [id number] multilevel cervical spine arthropathy. Visualized intracranial contents are unremarkable. Soft tissues of the neck are normal. Lung apices are clear. IMPRESSION: 1. No acute cervical spine fracture or subluxation. 2. Additional findings as above. This document has been electronically signed by: Loida Renner MD on 06/03/2025 14:46:38
--- NOTE | ~2025-06-03 | XR_ITS ---
CLINICAL HISTORY: fall 3 view left shoulder Comparison: Chest x-ray 09/26/2022 Findings: No fractures or dislocations. Moderate glenohumeral and AC joint osteoarthritis. No erosions. No radiopaque foreign body. IMPRESSION: 1. No acute fracture or subluxation. This document has been electronically signed by: Loida Renner MD on 06/03/2025 14:14:13
--- NOTE | ~2025-06-03 | XR_ITS ---
CLINICAL HISTORY: cough 2 view chest x-ray Comparison: Chest x-ray 09/25/2022 Findings: No dense focal airspace consolidation. Prominence of perihilar markings. No large pleural effusion. No pneumothorax. Normal heart size and central pulmonary vascularity. Root soft tissue or osseous abnormality. Impression: 1. Mild prominence of perihilar markings, nonspecific and may represent component of mild fluid overload or developing pneumonitis. This document has been electronically signed by: Loida Renner MD on 06/03/2025 14:12:14
--- NOTE | ~2025-06-03 | CT_ITS ---
CLINICAL HISTORY: fall + HS last week CT head without contrast Comparison: CT head 01/24/2023 Findings: No intra-axial mass, midline shift, hydrocephalus, or acute hemorrhage. Moderate atrophy-like change and white matter disease. There is no sinus or mastoid fluid. The orbits are within normal limits. No skull fracture. IMPRESSION: 1. No acute intracranial findings. 2. Chronic/nonacute findings as above. This document has been electronically signed by: Loida Renner MD on 06/03/2025 14:50:14
[2025-06-03 13:06] VITALS: BP 158/70; PULSE 83; RESP 18; TEMP 36.6; O2SAT 98; BMI 26.6
--- NOTE | 2025-06-03 13:06 | ED_ITS ---
HPI - Fall General Chief Complaint: Fall Stated Complaint: Injury, fall Time Seen by Provider: 06/03/25 16:12 Source: patient and RN notes reviewed Mode of arrival: ambulatory Limitations: no limitations History of Present Illness ED Provider: Barb Zarco PA-C HPI Narrative: This is a 79-year-old female, with a past medical history of hypertension, hyperlipidemia, who presents emergency department with concerns of left wrist pain status post mechanical fall which occurred 4 days ago. Patient reports that while she was getting her keys to her apartment while carrying alot of her belongings she misstepped and she ultimately landed onto her left wrist. She immediately had pain in her left wrist. She denies head strike or LOC. Daughter also reports concern for ongoing cough for the last 3 months. No fevers, chills, chest pain, shortness of breath, abdominal pain, nausea, vomiting or diarrhea. No urinary symptoms. No recent bloody or black stool. She is otherwise feeling well. She lives at home with her . Daughter reports that they feel safe with disposition home if medically appropriate. She is not on anticoagulation. No other complaints or concerns at this time. MD complaint: fall Onset (ago): day(s) Fall from: standing Fall witnessed: no Place fall occurred: home Loss of consciousness: none Prolonged down time: no Symptoms prior to fall: none Context: tripped/slipped Severity: moderate Associated symptoms (after fall): denies Related Data Home Medications ?Medication ?Instructions ?Recorded ?Confirmed hydroxyzine HCl 50 mg tablet 50 mg PO Q6H PRN Anxiety 02/12/23 02/12/23 losartan 100 1 tab PO DAILY 02/12/2301/26 mg-hydrochlorothiazide 25 mg tablet omeprazole 20 mg capsule,delayed 20 mg PO DAILY@0630 0 02/12/23 02/12/23 release sertraline 50 mg tablet 50 mg PO DAILY 02/12/2301/26 trazodone 100 mg tablet 100 mg PO BEDTIME 02/12/23 0 02/12/23 Previous Rx's ?Medication ?Instructions ?Recorded acetaminophen 650 mg 650 mg PO Q8H PRN pain #30 t abs 02/03/23 tablet,extended release (Tylenol Arthritis Pain) amlodipine 10 mg tablet 10 mg PO DAILY 30 days #30 t abs 08/09/23 atorvastatin 80 mg tablet 80 mg PO DAILY 30 days #30 t abs 02/03/23 cholecalciferol (vitamin D3) 125 125 mcg PO DAILY #30 caps 02/03/23 mcg (5,000 unit) capsule cyanocobalamin (vitamin B-12) 1,000 mcg PO DAILY #30 t abs 02/03/23 1,000 mcg tablet donepezil 5 mg tablet 5 mg PO BEDTIME 30 days #30 tabs 02/03/23 thiamine HCl (vitamin B1) 100 mg 100 mg PO DAILY 30 da ys #30 tabs 02/03/23 tablet (Vitamin B-1) cefuroxime axetil 250 mg tablet 250 mg PO BID 5 days # 10 tabs 02/14/23 sulfamethoxazole 800 1 tab PO BID #6 tabs 3 mg-trimethoprim 160 mg tablet (Bactrim DS) amoxicillin 875 mg-potassium 1 tab PO BID 7 days #14 t abs 06/03/25 clavulanate 125 mg tablet Allergies Allergy/AdvReac Type Severity Reaction Status Date / Time ibuprofen (From jslyhl) Allergy Swelling Verified 06/03/25 13:10 Review of Systems 2 Review of Systems: Constitutional : No Fever, No Chills ENT/Mouth : No sore throat, No Rhinorrhea Eyes: No Eye Pain, No Swelling, No Redness Cardiovascular : No Chest Pain, No SOB Respiratory : + Cough, No Sputum Gastrointestinal : No Nausea, No Vomiting, No Diarrhea, No abdominal Pain Genitourinary : No Dysuria, No Hematuria Musculoskeletal : No joint pain, No Myalgias, No Joint Swelling Skin : No Skin Lesions Neuro : No Weakness, No Numbness, No Headache All other systems reviewed and are negative Yes all other systems are reviewed and are negative Constitutional: Constitutional: Reports as per [facility] Past Medical History Medical History Depression High blood pressure High cholesterol Surgical History H/O: hysterectomy Social History Social History Household Members: Spouse Housing: Apartment Do you presently have visiting nurse or other home services: No Alcohol intake: current Alcohol intake frequency: does not drink Alcohol type: beer Patient Tobacco Use Status: Never used Tobacco Smoked in Last 30 Days: No e-Cigarette/Vaping Use: Never Used Use of substances other than those prescribed or required for medical reasons: No Advance Directives: No Advance Directives Information Provided: Yes Do you have a plan to hurt others: No Plan service: No Current occupational status: retired and disabled 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 Sexual orientation: Straight/Heterosexual Physical Exam 2 Vital Signs: Vital Signs: Last Vital Signs Temp 97.8 F 06/03/25 19:26 Pulse 67 06/03/25 19:26 Resp 19 06/03/25 19:26 BP 179/68 H 06/03/25 19:26 Pulse Ox 98 06/03/25 19:26 O2 Del Method Room Air 06/03/25 19:26 BMI result Body Mass Index 26.6 Const: General: cooperative, comfortable and no acute distress O rientation/consciousness: patient oriented x3 Limitations: no limitations HEENT: Head: Yes normal to inspection, Yes normocephalic and Yes atraumatic Ears: hearing grossly normal bilaterally General nose exam: Normal external nose present Face and sinus: Yes normal facial exam Mouth: Normal oral and palatal mucosa present, oropharynx normal and moist mucous membranes Throat: Yes posterior oropharynx normal Eyes: General: appearance normal, both eyes and all related structures E yelids: Yes eyelids normal Conjunctivae: conjunctivae normal Sclerae: s clerae normal Pupils: Equal, round and reactive pupils present EOM: EOMs intact bilaterally Neck: Neck: Yes normal visual inspection, Yes full ROM and Yes no lymphadenopathy Lymphatic: no lymphadenopathy noted Chest: Chest palpation & inspection: normal inspection of the chest Resp: Effort & Inspection: normal respiratory effort and able to speak in complete sentences Auscultation: clear to auscultation bilaterally, no crackles, no rales, no rhonchi and no wheezes Cardio: Rate: regular rate Rhythm: regular rhythm Heart sounds: S1 normal heart sound present and S2 normal heart sound present GI: Inspection: Yes normal to inspection Skin: General skin exam: no rashes or lesions noted Trauma: no lacerations or abrasions Wounds: no wounds Neuro: General: patient oriented x3 and moves all extremities Cranial nerves: Yes Equal, round and reactive pupils present Extrem: Other: Left wrist with moderate edema and ttp overlying the distaal radius. Strong General: Yes normal to inspection Right upper extremity: normal to inspection Left upper extremity: normal to inspection Right lower extremity: normal to inspection Left lower extremity: normal to inspection Course Course Course Narrative: This is a Rapid Medical Exam performed in triage by Jaylene Stanley PA-C. Full HPI, ROS and PE to be performed by primary ED provider. 79yo F w/pmhx HTN, HLD, dementia presenting to the ED c/o mechanical trip & fall last week, +HS, c/o L shoulder/wrist pain. Daughter also reports cough x mos. Denies AC use. denies sx prior to fall - states chronic balance issues PE: +L wrist with swelling & deformity. limited ROM 2/2 pain. NV intact. L shoulder w/ttp. NAD, talking in complete sentences Plan: EKG, labs, imaging Medications Administered Discontinued Medications Generic Name Dose Route Start Last Admin Trade Name Freq PRN Reason Stop Dose Admin Amoxicillin/Clavulanate Potassium 875 mg 06/03/25 19:17 06/03/25 19:26 Amoxicillin/Potassium Clav 875 Mg Tablet PO 06/03/25 19:18 875 mg ONCE ONE Administration Sodium Chloride 1,000 mls @ 999 mls/hr 06/03/25 17:04 06/03/25 18:09 Ns IV 06/03/25 18:04 Infused .Q1H1M ONE Infusion Procedures Orthopedic Splinting/Casting Injury #1: Side: left Upper Extremity Injury Location: wrist Upper Extremity Immobilizer: volar splint Medical Decision Making Medical Decision Making MDM Narrative: This is a 79-year-old female, with a past medical history of hypertension, hyperlipidemia, who presents emergency department with concerns of left wrist pain status post mechanical fall which occurred 4 days ago. On arrival, vital signs within normal limits. She is speaking full sentences under no acute distress. She is neurologically intact. Patient with edema, tenderness palpation along the distal radius. This is concerning for acute fracture. CT head, neck, shoulder, chest, and wrist x-rays were performed prior to my evaluation. Xray of the chest revealing Mild prominence of perihilar markings, nonspecific and may represent component of mild fluid overload or developing pneumonitis. Given cough for several weeks, will administer ABX for trial. Pt does not appear to be fluid overloaded. These are unremarkable for any acute findings however review of wrist x-rays concerning for an acute distal radius fracture based on my interpretation, this is also reflective on physical exam. I reached out to the information technology specialist, Edwin Shore PA-C. Given age, limited mobility if she was placed in a sugar-tong, discussed possibility of putting into a volar splint. Edwin agrees that this can be done, however with strict precautions as to not use this hand. Patient as well as daughter at bedside understand and agree with this plan. Labs were also obtained prior to my evaluation, she has slight leukocytosis at 11.7, likely reactive. She was hyponatremic at 130 therefore serum osmolality, urine osmolality was ordered. She is on combination hydrochlorothiazide medication for her blood pressure, this could be contributing to her symptoms. Given hyponatremia, we are going to administer IV fluids. 7:06 PM 06/03/2025 (Barb Zarco PA-C): Repeat sodium is 135, patient is feeling well. Serum osmolality 271, urine osmolality 178, this could be due to thiazide induced hyponatremia. She is eating and drinking well, she has no current complaints. Advised patient and daughter to follow-up with PCP. They feel safe with disposition home. Pt ambulatory with steady gait. Does not PT/CM at this time. Given strict return precautions. Given orthopedic referral. Patient stable for discharge. Differential Diagnosis Differential Diagnoses: The differential diagnosis associated with the presentation includes Fracture, contusion, sprain, strain Consult Healthcare Provider Management of the patient was discussed with: Loan Associate Edwin Shore PA-C -see [facility] Lab Data [facility] Lab Attestation statement: I reviewed the patient's lab results. see mdm 06/03/25 13:21 06/03/25 18:34 Labs: Lab Results 06/03/25 06/03/25 06/03/25 Range/Units 13:21 17:14 17:28 WBC 11.7 H (4.8-10.8) X10*3/uL RBC 4.04 L (4.20-5.50) X10*6/uL Hgb 11.3 L (12.0-16.0) g/dl Hct 33.0 L (37.0-47.0) % MCV 81.7 (80.0-98.0) fL MCH 28.0 (27.0-33.0) pg MCHC 34.2 (31.0-35.0) g/dl RDW 13.0 (11.0-16.0) % Plt Count 289 (160-400) X10*3/uL MPV 9.3 L (9.4-12.3) fL Immature Gran % (Auto) 0.3 (0.0-0.4) % Neut % (Auto) 68.1 (45-73) % Lymph % (Auto) 15.8 L (20-40) % Russell % (Auto) 6.6 (2-11) % Eos % (Auto) 8.9 H (0-4) % Baso % (Auto) 0.3 (0-2) % Lymph # (Auto) 1.9 (1.2-4.9) X10*3/uL Russell # (Auto) 0.8 (0.1-1.2) X10*3/uL Eos # (Auto) 1.0 H (0.0-0.4) X10*3/uL Baso # (Auto) 0.0 (0.0-0.2) X10*3/uL Abs Immat Gran (auto) 0.04 H (0.00-0.03) X10*3/uL Absolute Neuts (auto) 8.0 (2.0-8.3) x10*3/uL Absolute Nucleated RBC 0.000 (0.0-0.012) X10*3/uL Nucleated RBC % (auto) 0.0 (0.0-0.2) /100WBC Sodium 130 L (135-145) mmol/L Potassium 3.7 (3.3-5.1) mmol/L Chloride 99 (96-108) mmol/L Carbon Dioxide 22 (22-29) mmol/L Anion Gap 13 (12-20) BUN 12 (9-16) mg/dL Creatinine 0.78 (0.5-1.4) mg/dL Estim Creat Clear Calc 53.2 Estimated GFR > 60 Random Glucose 102 (60-115) mg/dL Osmolality 271 L (281-305) mosm/kg Calcium 9.8 (8.4-10.2) mg/dL Magnesium 1.7 (1.6-2.6) mg/dL Total Bilirubin 0.5 (0.0-1.0) mg/dL Direct Bilirubin 0.2 (0.0-0.5) mg/dL AST 23 (5-31) U/L ALT 18 (0-31) U/L Alkaline Phosphatase 87 (39-117) U/L NT-Pro-B Natriuret Pep 288.3 (<300) pg/mL Total Protein 7.8 (6.5-8.0) g/dL Albumin 4.7 (3.5-5.0) g/dL Urine Color Yellow Urine Appearance Clear Urine pH 5.5 (5.0-9.0) Ur Specific [place] <= 1.005 (1.005-1.025) Urine Protein Negative (Neg-Trace) mg/dL Urine Glucose (UA) Negative (Negative) mg/dL Urine Ketones Negative (Negative) mg/dL Urine Blood Negative (Negative) Urine Nitrite Negative (Negative) Ur Leukocyte Esterase Trace H (Negative) Urine RBC 0-2 (0-2) /HPF Urine WBC 0-5 (0-5) /HPF Ur Squamous Epith Cells 0-2 (0-2) /HPF Urine Bacteria None Seen (None Seen) Hyaline Casts 0-2 (0-2) /LPF Urine Osmolality 178 L (373-1093) mosm/kg Ur Random Sodium 41.0 mmol/L Influenza Type A (PCR) NEGATIVE (Negative) Influenza Type B (PCR) NEGATIVE (Negative) RSV RNA Qual (PCR) NEGATIVE (Negative) SARS-CoV-2 RNA (RT-PCR) NEGATIVE (Negative) 06/03/25 Range/Units 18:34 WBC (4.8-10.8) X10*3/uL RBC (4.20-5.50) X10*6/uL Hgb (12.0-16.0) g/dl Hct (37.0-47.0) % MCV (80.0-98.0) fL MCH (27.0-33.0) pg MCHC (31.0-35.0) g/dl RDW (11.0-16.0) % Plt Count (160-400) X10*3/uL MPV (9.4-12.3) fL Immature Gran % (Auto) (0.0-0.4) % Neut % (Auto) (45-73) % Lymph % (Auto) (20-40) % Russell % (Auto) (2-11) % Eos % (Auto) (0-4) % Baso % (Auto) (0-2) % Lymph # (Auto) (1.2-4.9) X10*3/uL Russell # (Auto) (0.1-1.2) X10*3/uL Eos # (Auto) (0.0-0.4) X10*3/uL Baso # (Auto) (0.0-0.2) X10*3/uL Abs Immat Gran (auto) (0.00-0.03) X10*3/uL Absolute Neuts (auto) (2.0-8.3) x10*3/uL Absolute Nucleated RBC (0.0-0.012) X10*3/uL Nucleated RBC % (auto) (0.0-0.2) /100WBC Sodium 135 (135-145) mmol/L Potassium 3.4 (3.3-5.1) mmol/L Chloride 101 (96-108) mmol/L Carbon Dioxide 23 (22-29) mmol/L Anion Gap 14 (12-20) BUN 9 (9-16) mg/dL Creatinine 0.67 (0.5-1.4) mg/dL Estim Creat Clear Calc 62.0 Estimated GFR > 60 Random Glucose 100 (60-115) mg/dL Osmolality (281-305) mosm/kg Calcium 9.3 (8.4-10.2) mg/dL Magnesium (1.6-2.6) mg/dL Total Bilirubin (0.0-1.0) mg/dL Direct Bilirubin (0.0-0.5) mg/dL AST (5-31) U/L ALT (0-31) U/L Alkaline Phosphatase (39-117) U/L NT-Pro-B Natriuret Pep (<300) pg/mL Total Protein (6.5-8.0) g/dL Albumin (3.5-5.0) g/dL Urine Color Urine Appearance Urine pH (5.0-9.0) Ur Specific [place] (1.005-1.025) Urine Protein (Neg-Trace) mg/dL Urine Glucose (UA) (Negative) mg/dL Urine Ketones (Negative) mg/dL Urine Blood (Negative) Urine Nitrite (Negative) Ur Leukocyte Esterase (Negative) Urine RBC (0-2) /HPF Urine WBC (0-5) /HPF Ur Squamous Epith Cells (0-2) /HPF Urine Bacteria (None Seen) Hyaline Casts (0-2) /LPF Urine Osmolality (373-1093) mosm/kg Ur Random Sodium mmol/L Influenza Type A (PCR) (Negative) Influenza Type B (PCR) (Negative) RSV RNA Qual (PCR) (Negative) SARS-CoV-2 RNA (RT-PCR) (Negative) Radiology Impression Discussion of test interpretation with radiology: I have reviewed the radiologist's reading. Radiologist Impression: Findings: Exam interpretation limited due to interference from patient motion artifact. Cervical spine lordosis is maintained. No acute fracture or traumatic subluxation. [id number] multilevel cervical spine arthropathy. Visualized intracranial contents are unremarkable. Soft tissues of the neck are normal. Lung apices are clear. IMPRESSION: 1. No acute cervical spine fracture or subluxation. 2. Additional findings as above. This document has been electronically signed by: Loida Renner MD on 06/03/2025 14:46:38 Dictated By: Loida Renner MD Findings: No intra-axial mass, midline shift, hydrocephalus, or acute hemorrhage. Moderate atrophy-like change and white matter disease. There is no sinus or mastoid fluid. The orbits are within normal limits. No skull fracture. IMPRESSION: 1. No acute intracranial findings. 2. Chronic/nonacute findings as above. This document has been electronically signed by: Loida Renner MD on 06/03/2025 14:50:14 Dictated By: Loida Renner MD Findings: No dense focal airspace consolidation. Prominence of perihilar markings. No large pleural effusion. No pneumothorax. Normal heart size and central pulmonary vascularity. Root soft tissue or osseous abnormality. Impression: 1. Mild prominence of perihilar markings, nonspecific and may represent component of mild fluid overload or developing pneumonitis. This document has been electronically signed by: Loida Renner MD on 06/03/2025 14:12:14 Dictated By: Loida Renner MD Findings: No fractures or dislocations. Moderate glenohumeral and AC joint osteoarthritis. No erosions. No radiopaque foreign body. IMPRESSION: 1. No acute fracture or subluxation. This document has been electronically signed by: Loida Renner MD on 06/03/2025 14:14:13 Dictated By: Loida Renner MD Findings: No fractures or dislocations. Moderate left wrist osteoarthritis. No radiopaque foreign body. IMPRESSION: 1. No acute fracture or traumatic subluxation . This document has been electronically signed by: Loida Renner MD on 06/03/2025 14:08:03 Dictated By: Loida Renner MD Discharge Plan Discharge Clinical Impression: Distal radial fracture, Acute hyponatremia, Cough Patient Disposition: Home, Self-Care Instructions: Wrist Fracture in Adults (ED), Hyponatremia (ED) Additional Instructions: You were seen in the emergency department in you were found to have a wrist fracture. We placed your wrist in a splint. Please keep this on until you follow-up with the information technology specialist. Call tomorrow to make an appointment. If you feel as though your splint is too tight, please return. Do not get splint wet. You may take Tylenol as needed for pain. We also found your sodium level in your blood to be low. We had given you IV fluids, and your sodium was within normal limits. Please follow-up with your primary care physician regarding this visit. If any new or worsening symptoms occur including but not limited to severe chest pain, shortness of breath, please seek emergent care. Prescriptions: New amoxicillin-pot clavulanate 875-125 mg tablet 1 tab PO BID 7 Days Qty: 14 0RF No Action donepezil 5 mg Tablet 5 mg PO BEDTIME 30 Days Qty: 30 0RF atorvastatin 80 mg tablet 80 mg PO DAILY 30 Days Qty: 30 0RF cyanocobalamin (vitamin B-12) 1,000 mcg tablet 1,000 mcg PO DAILY Qty: 30 0RF thiamine HCl (vitamin B1) [Vitamin B-1] 100 mg tablet 100 mg PO DAILY 30 Days Qty: 30 0RF acetaminophen [Tylenol Arthritis Pain] 650 mg tablet extended release 650 mg PO Q8H PRN (Reason: pain) Qty: 30 0RF amlodipine 10 mg tablet 10 mg PO DAILY 30 Days Qty: 30 0RF cholecalciferol (vitamin D3) 125 mcg (5,000 unit) capsule 125 mcg PO DAILY Qty: 30 0RF losartan-hydrochlorothiazide 100-25 mg tablet 1 tab PO DAILY trazodone 100 mg tablet 100 mg PO BEDTIME hydroxyzine HCl 50 mg tablet 50 mg PO Q6H PRN (Reason: Anxiety) omeprazole 20 mg capsule,delayed release(DR/EC) 20 mg PO DAILY@0630 sertraline 50 mg tablet 50 mg PO DAILY cefuroxime axetil 250 mg tablet 250 mg PO BID 5 Days Qty: 10 0RF sulfamethoxazole-trimethoprim [Bactrim DS] 800-160 mg tablet 1 tab PO BID Qty: 6 0RF Referrals: [facility] [Provider Group] Interventions: ED Discharge Assessment Last Done: 06/03/25 19:26 Discharge Date/Time: 06/03/25 19:26 Print Language: Maori
[2025-06-03 13:27] LABS: MANUAL DIFF FLAG NO
[2025-06-03 13:31] LABS: Hematocrit 33.0 % (37.0-47.0); Hemoglobin 11.3 g/dl (12.0-16.0); Imm Gran Abs Auto 0.04 X10*3/uL (0.00-0.03); Imm Gran Pct Auto 0.3 % (0.0-0.4); Lymphocytes Absolute Auto 1.9 X10*3/uL (1.2-4.9); Mean Corpuscular HGB Conc 34.2 g/dl (31.0-35.0); Mean Corpuscular Hemoglobin 28.0 pg (27.0-33.0); Mean Corpuscular Volume 81.7 fL (80.0-98.0); NRBC Abs Auto 0.000 X10*3/uL (0.0-0.012); NRBC Pct Auto 0.0 /100WBC (0.0-0.2); Platelet Count 289 X10*3/uL (160-400); Red Blood Count 4.04 X10*6/uL (4.20-5.50); White Blood Count 11.7 X10*3/uL (4.8-10.8)
[2025-06-03 13:43] LABS: Alanine Aminotransferase 18 U/L (0-31); Albumin Level 4.7 g/dL (3.5-5.0); Alkaline Phosphatase 87 U/L (39-117); Anion Gap 13 (12-20); Aspartate Amino Transferase 23 U/L (5-31); Blood Urea Nitrogen 12 mg/dL (9-16); Calcium 9.8 mg/dL (8.4-10.2); Carbon Dioxide 22 mmol/L (22-29); Chloride 99 mmol/L (96-108); Creatinine Clr Calc Pharmacy 53.2; Estimated Glomerular Filt Rate > 60; Magnesium 1.7 mg/dL (1.6-2.6); Potassium 3.7 mmol/L (3.3-5.1); Sodium 130 mmol/L (135-145); Total Protein 7.8 g/dL (6.5-8.0)
[2025-06-03 14:07] LABS: Resp Syncy Virus RNA Qual PCR NEGATIVE (Negative); SARS COV2 PCR INHOUSE NEGATIVE (Negative)
[2025-06-03 16:13] LABS: NT Pro B Type Natriuretic Pept 288.3 pg/mL (<300)
[2025-06-03 16:21] VITALS: BP 157/72; PULSE 84; RESP 18; TEMP 36.7; O2SAT 98
[2025-06-03 17:50] LABS: Osmolality, Serum 271 mosm/kg (281-305)
[2025-06-03 17:55] LABS: Appearance Urine Clear; Glucose Urine UA Negative (Negative); PH 5.5 (5.0-9.0); Specific Gravity - Urine <= 1.005 (1.005-1.025); UMIC TRIGGER UACC YES
[2025-06-03 18:53] LABS: Anion Gap 14 (12-20); Blood Urea Nitrogen 9 mg/dL (9-16); Calcium 9.3 mg/dL (8.4-10.2); Carbon Dioxide 23 mmol/L (22-29); Chloride 101 mmol/L (96-108); Creatinine Clr Calc Pharmacy 62.0; Estimated Glomerular Filt Rate > 60; Potassium 3.4 mmol/L (3.3-5.1); Sodium 135 mmol/L (135-145)
[2025-06-03 19:00] VITALS: BP 179/68; PULSE 67; RESP 19; TEMP 36.6; O2SAT 98
[2025-06-03 19:26] VITALS: BP 179/68; PULSE 67; RESP 19; TEMP 36.6; O2SAT 98
== END 2025-06-03 19:26 | disposition home or self-care (01) ==
PROVIDERS: Physician Assistant; Physician Assistant Medical; Emergency Provider Emergency Medicine Emergency Medical Services; PCP Internal Medicine
DX: S52.502A Unspecified fracture of the lower end of left radius, initial encounter for closed fracture (principal); W01.0XXA Fall on same level from slipping, tripping and stumbling without subsequent striking against object, initial encounter; E87.1 Hypo-osmolality and hyponatremia; R05.9 Cough, unspecified; M25.532 Pain in left wrist; Y93.89 Activity, other specified; Y92.039 Unspecified place in apartment as the place of occurrence of the external cause; Y99.8 Other external cause status; Z03.818 Encounter for observation for suspected exposure to other biological agents ruled out
CPT/HCPCS: 29125; 36415; 70450; 71046; 72125; 73030; 73110; 80048; 80076; 81001; 83735; 83880; 83930; 83935; 84300; 85025; 87637; 96360; 99284

== ENCOUNTER → 2025-06-03 13:08 | Outpatient (BNV) | payer OTHER, SELFPAY | PROVIDERS: PCP Internal Medicine; Visit Provider Radiology Diagnostic Radiology | DX: S09.90XD Unspecified injury of head, subsequent encounter (principal); R05.9 Cough, unspecified; M25.532 Pain in left wrist; Z04.3 Encounter for examination and observation following other accident | CPT/HCPCS: 70450; 71046; 72125; 73030; 73110 ==

== ENCOUNTER 2025-06-06 08:26 | Outpatient (REF) | payer OTHER, SELFPAY ==
--- NOTE | ~2025-06-06 | XR_ITS ---
EXAMINATION: XR WRIST, LEFT CLINICAL INFORMATION: M25.532 - Pain in left wrist COMPARISON: X-ray 06/03/2025 TECHNIQUE: PA, lateral, and oblique views of the left wrist. FINDINGS: Bone mineralization is decreased. No acute fracture, dislocation or suspicious bony lesion is identified Moderate first CMC arthritis. No radiopaque foreign body. XR/XR wrist LT min 3V IMPRESSION: No acute osseous findings Electronically signed by: Sherwin Deutsch MD 06/06/2025 12:20 PM ZURDO
== END 2025-06-06 08:27 | disposition home or self-care (01) ==
LOC: HO.HOSX 08:26
PROVIDERS: Visit Provider Orthopaedic Surgery
DX: S52.502A Unspecified fracture of the lower end of left radius, initial encounter for closed fracture (principal); W19.XXXA Unspecified fall, initial encounter; Y92.009 Unspecified place in unspecified non-institutional (private) residence as the place of occurrence of the external cause
CPT/HCPCS: 73110

== ENCOUNTER 2025-06-06 09:56 | Outpatient (AMB) | payer OTHER, SELFPAY ==
--- NOTE | 2025-06-06 10:30 | A.OFFVIS_ITS ---
Vital Signs 06/06/25 10:45 Height 5 ft 3 in Weight 150 lb BMI 26.6 Intake Visit Reasons: FC- left distal radius fracture Intake Note: Chanda 79 yr old right hand dominant female presents today for her left distal radius fracture from DOI 05/31/25. States she fell at home and hurt her hand. She went to [facility] ED 3-4 days later due to pain increase and was told she has a frac ture. Today patient states her pain is better today but still limited ROM. She a small rash form the splint placement but states its better. Denies numbness or tingling in hand. Allergies ibuprofen (From Motrin) Allergy (Verified 06/06/25 10:45) Swelling HPI HPI FC- left distal radius fracture: Details: Chanda is an 79 year old right hand dominant German speaking woman who presents for a left distal radius fracture, S/P fall, DOI: 05/30/25. She was seen in the ED & splinted on 06/03/25. She complains of some pain in her wrist. 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 Sexual orientation: Straight/Heterosexual Review of Systems Const All systems reviewed & are unremarkable except as noted in HPI and below Physical Exam Vital Signs: BMI result Body Mass Index 26.6 Const General: cooperative, healthy appearing and no acute distress Orientation/consciousness: patient oriented x3 HEENT Head: Yes normocephalic and Yes atraumatic Eyes EOM: EOMs intact bilaterally Resp Effort & Inspection: normal respiratory effort and able to speak in complete sentences Cardio Jugular venous distension: no JVD Skin General skin exam: turgor normal Rashes: no rashes Neuro General: patient oriented x3 Extrem Other: Evaluation of Left Upper Extremity: The patient is alert, oriented, and in no acute distress Neuro: Median, Ulnar, Radial nerves motor and sensory intact and sensation is normal to the tips of all digits Vascular: Cap refill brisk ROM: She can make a fist and extend all her digits Skin: No lacerations or abrasions. General: Mild swelling, and resolving ecchymosis on the volar side of the wrist. No Erythema or evidence of infection. Tender over the fracture site DRUJ stable on exam Radiographs: 3 views of the left wrist were taken and viewed by me today in clinic. They show a distal radius fracture, with ~1-2 degrees dorsal tilt on the lateral view. No displacement on the PA view Psych Appearance: grossly normal Affect: normal affect Attitude: cooperative Office Procedures AMB Fracture Care Details: Fracture care distal radius fracture 48210 Fracture Billing Code: Fracture Billing Code Assessment & Plan Assessment & Plan (1) Fracture of left distal radius: Code(s): S52.502A - Unspecified fracture of the lower end of left radius, initial encounter for closed fracture Category: Medical Plan Assessment & Plan: 1. Left distal radius fracture, S/P fall DOI: 05/30/25 I educated her about this condition I discussed operative and non-operative treatment options We will manage this conservatively, and she is in agreement She was placed in a short arm cast, to be worn fo the next 3 weeks I discussed activity modifications, she is to lift nothing heavier than a cellphone for the next 3 weeks. They should also avoid any heavy impact activities, falls, or sports activities for the next 7 weeks She will perform gentle ROM exercises at home She will follow up in 3 weeks, with X-rays, 3V L wrist, OOP Scribed for Pamela Daniels MD by Tnony Chavez medical customer service representative, on 06/06/25 at 10:30 AM, EST. Orders: Orders XR wrist LT min 3V Today M25.532 - Pain in left wrist Coding Level of Care Code New Pt Level 4 (71409) Diagnoses Fracture of left distal radius S52.502A CPT Codes Fracture Care - Fracture Billing Code: Fracture Billing Code ([id number])
[2025-06-06 10:45] VITALS: BMI 26.6
== END 2025-06-06 11:34 | disposition home or self-care (01) ==
LOC: HO.HOS 09:56
PROVIDERS: PCP Internal Medicine; Visit Provider Orthopaedic Surgery
DX: S52.502A Unspecified fracture of the lower end of left radius, initial encounter for closed fracture (principal)
CPT/HCPCS: 25600; 99204

== ENCOUNTER → 2025-06-06 09:59 | Outpatient (BNV) | payer OTHER, SELFPAY | PROVIDERS: Visit Provider Radiology Diagnostic Ultrasound | DX: M25.532 Pain in left wrist (principal) | CPT/HCPCS: 73110 ==

== ENCOUNTER 2025-06-16 17:49 | Emergency (ER) | payer OTHER, SELFPAY ==
--- NOTE | ~2025-06-16 | XR_ITS ---
CLINICAL HISTORY: fall, pain 3 views sacrum and coccyx Comparison: None provided Findings No acute fractures. Favored normal irregularity of the coccyx. IMPRESSION: No acute fracture identified by radiograph. This document has been electronically signed by: Lakisha Doherty MD on 06/16/2025 19:03:55
--- NOTE | ~2025-06-16 | XR_ITS ---
CLINICAL HISTORY: fall, pain 3 views lumbar spine Comparison: None provided Findings: Straightening of the normal lumbar lordosis. Mild anterolisthesis of L5 on S1. No acute fractures or dislocation. Mild inferior endplate L1 deformity, chronic appearing. Multilevel degenerative endplate changes of the lumbar spine. IMPRESSION: No acute fracture identified by radiograph. This document has been electronically signed by: Lakisha Doherty MD on 06/16/2025 19:03:26
[2025-06-16 18:02] VITALS: BP 172/74; PULSE 81; RESP 18; TEMP 36.6; O2SAT 96; BMI 26.7
--- NOTE | 2025-06-16 18:05 | ED_ITS ---
HPI - Fall General Chief Complaint: Back Pain/Injury Stated Complaint: back pain Time Seen by Provider: 06/16/25 19:35 Source: patient, family and automotive parts interpreter Mode of arrival: ambulatory Limitations: language barrier History of Present Illness ED Provider: Betsy Trent APRN HPI Narrative: 79-year-old female with a history of dementia, hypertension, hyperlipidemia who presents the ER with lower back pain after a fall on June 03. Patient was seen in the emergency room at that time by do not see the images of her lumbar spine. NO radiation of pain. No numbness, tingling, weakness of the LE. No numbness in the groin. No bowel or bladder incontinence. No fevers, chills. Arrives ambulatory. Taking tylenol at home with continued pain. Related Data Home Medications ?Medication ?Instructions ?Recorded ?Confirmed hydroxyzine HCl 50 mg tablet 50 mg PO Q6H PRN Anxiety 02/12/23 02/12/23 losartan 100 1 tab PO DAILY 02/12/2301/26 mg-hydrochlorothiazide 25 mg tablet omeprazole 20 mg capsule,delayed 20 mg PO DAILY@0630 0 02/12/23 02/12/23 release sertraline 50 mg tablet 50 mg PO DAILY 02/12/2301/26 trazodone 100 mg tablet 100 mg PO BEDTIME 02/12/23 0 02/12/23 Previous Rx's ?Medication ?Instructions ?Recorded acetaminophen 650 mg 650 mg PO Q8H PRN pain #30 t abs 02/03/23 tablet,extended release (Tylenol Arthritis Pain) amlodipine 10 mg tablet 10 mg PO DAILY 30 days #30 t abs 02/03/23 atorvastatin 80 mg tablet 80 mg PO DAILY 30 days #30 t abs 02/03/23 cholecalciferol (vitamin D3) 125 125 mcg PO DAILY #30 caps 02/03/23 mcg (5,000 unit) capsule cyanocobalamin (vitamin B-12) 1,000 mcg PO DAILY #30 t abs 02/03/23 1,000 mcg tablet donepezil 5 mg tablet 5 mg PO BEDTIME 30 days #30 tabs 02/03/23 thiamine HCl (vitamin B1) 100 mg 100 mg PO DAILY 30 da ys #30 tabs 02/03/23 tablet (Vitamin B-1) cefuroxime axetil 250 mg tablet 250 mg PO BID 5 days # 10 tabs 02/14/23 sulfamethoxazole 800 1 tab PO BID #6 tabs 02/18/ 3 mg-trimethoprim 160 mg tablet (Bactrim DS) amoxicillin 875 mg-potassium 1 tab PO BID 7 days #14 t abs 06/03/25 clavulanate 125 mg tablet cyclobenzaprine 5 mg tablet 5 mg PO TID PRN muscle spa sm #12 06/16/25 tabs lidocaine 5 % topical patch 1 patch topical DAILY #30 ea 06/16/25 (Lidoderm) Allergies Allergy/AdvReac Type Severity Reaction Status Date / Time ibuprofen (From Motrin) Allergy Swelling Verified 06/16/25 18:02 Review of Systems Review of Systems: Yes all other systems are reviewed and are negative Constitutional: Constitutional: Reports no additional constitutional complaints, Denies body ache(s), Denies chills, Denies fever(s), Denies headache(s) and Denies weakness Eyes: Eyes: Reports no additional eye complaints and Denies change in vision ENT: Reports system reviewed and no additional complaints, except as documented, Denies dizziness, Denies headache(s), Denies nasal congestion, Denies nasal discharge and Denies neck pain Cardiovascular: Cardiovascular: Reports no additional cardiovascular complaints, Denies chest pain, Denies leg edema and Denies dyspnea Respiratory: Respiratory: Reports no additional respiratory complaints, Denies cough and Denies dyspnea Gastrointestinal: Gastrointestinal: Reports no additional gastrointestinal complaints, Denies abdominal pain, Denies diarrhea, Denies nausea and Denies vomiting Genitourinary: Genitourinary: Reports no additional female genitourinary complaints and Denies urinary incontinence Musculoskeletal: Musculoskeletal: Reports no additional musculoskeletal complaints, Reports back pain, Denies arthralgias, Denies joint swelling, Denies neck pain, Denies numbness and Denies tingling Integumentary/Breasts: Skin/Breast: Reports system reviewed and no additional complaints, except as docu and Denies rash Neurologic: Reports system reviewed and no additional complaints, except as documented, Denies Abnormal speech present, Denies dizziness, Denies headache(s), Denies numbness, Denies tingling and Denies weakness [facility] Past Medical History Attestation statement: The following information was validated with the patient. Source: old records reviewed and nursing notes reviewed Medical History High cholesterol High blood pressure Depression Surgical History H/O: hysterectomy Social History Social History Household Members: Spouse Housing: Apartment Do you presently have visiting nurse or other home services: No Alcohol intake: current Alcohol intake frequency: does not drink Alcohol type: beer Patient Tobacco Use Status: Never used Tobacco e-Cigarette/Vaping Use: Never Used Advance Directives: No Advance Directives Information Provided: Yes Do you have a plan to hurt others: No Plan service: No Current occupational status: retired and disabled 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 Sexual orientation: Straight/Heterosexual Physical Exam Vital Signs: Vital Signs: Last Vital Signs Temp 98.0 F 06/16/25 19:45 Pulse 80 06/16/25 19:45 Resp 16 06/16/25 19:45 BP 149/73 H 06/16/25 19:45 Pulse Ox 96 06/16/25 19:45 O2 Del Method Room Air 06/16/25 19:45 BMI result Body Mass Index 26.7 Const: General: cooperative, healthy appearing, comfortable and no acute distress Orientation/consciousness: patient oriented x3 Limitations: no limitations HEENT: Head: Yes normal to inspection Ears: hearing grossly normal bilaterally General nose exam: Normal external nose present Face and sinus: Yes normal facial exam Mouth: Normal oral and palatal mucosa present Throat: Yes posterior oropharynx normal Eyes: General: appearance normal, both eyes and all related structures Pupils: Equal, round and reactive pupils present Neck: Neck: Yes normal visual inspection Chest: Chest palpation & inspection: normal inspection of the chest Resp: Effort & Inspection: normal respiratory effort Auscultation: clear to auscultation bilaterally Cardio: Rate: regular rate Rhythm: regular rhythm Peripheral pulses: Peripheral pulses 2+ throughout GI: Inspection: Yes normal to inspection Palpation (GI): Soft to palpation and nontender Auscultation: normal bowel sounds : General: Yes no CVA tenderness Back/Spine/Pelvis: Other: TTP to lumbar mid spine and coccyx with no step offs or deformities, worsened with flexion/extension of the spine Back: no CVA tenderness Thoracic/Lumbar Spine: thoracic and lumbar spine normal to inspection Skin: General skin exam: no rashes or lesions noted Neuro: General: patient oriented x3, no focal motor deficits and normal sensation to monofilament Cranial nerves: Yes Equal, round and reactive pupils present Cognition (Neuro): normal cognition Speech: No Abnormal speech present Gait exam (Neuro): Normal gait present Motor exam (neuro): 5/5 motor strength present throughout Sensory Exam: Normal double simultaneous stimulation for sensation Deep tendon reflexes (DTR's): Right patellar reflex intensity grade: 2+ and Left patellar reflex intensity grade: 2+ Extrem: General: Yes normal to inspection Course Course Course Narrative: 06/16 1808 Betsy Trent APRN This is a rapid medical exam. Defer additional HPI, ROS and PE to primary provider. This is an 79-year-old female with a history of dementia, hypertension, hyperlipidemia who presents the ER with lower back pain after a fall on June 03. Patient was seen in the emergency room at that time by do not see the images of her lumbar spine. I will check x-rays VSS Reevaluation(s) Reevaluation #1: There is an endplate L1 deformity which is mild but appears chronic. This fall was within the last 2 weeks and so I assume this would appear more acute on x- ray if it was from this fall. Will discharge patient home with flexeril TID PRN, continue APAP, lidoderm patches. recommend follow up outpatient with primary care doctor. Reviewed worrisome signs and symptoms of when to return to the emergency room. Comfortable plan for discharge home. Medications Administered Discontinued Medications Generic Name Dose Route Start Last Admin Trade Name Freq PRN Reason Stop Dose Admin Acetaminophen 975 mg 06/16/25 19:33 06/16/25 19:38 Acetaminophen 325 Mg Tablet PO 06/16/25 19:34 975 mg ONCE ONE Administration Cyclobenzaprine HCl 5 mg 06/16/25 19:33 06/16/25 19:38 Cyclobenzaprine Hcl 5 Mg Tablet PO 06/16/25 19:34 5 mg ONCE ONE Administration Lidocaine 1 patch 06/16/25 19:33 06/16/25 19:38 Lidocaine 4 % Patch Adh..Patch TRANSDERMA 06/16/25 19:34 1 patch ONCE ONE Administration Protocol Medical Decision Making Medical Decision Making MDM Narrative: 79-year-old female with a history of dementia, hypertension, hyperlipidemia who presents the ER with lower back pain after a fall on June 03. Patient was seen in the emergency room at that time by do not see the images of her lumbar spine. NO radiation of pain. No numbness, tingling, weakness of the LE. No numbness in the groin. No bowel or bladder incontinence. No fevers, chills. Arrives ambulatory. Taking tylenol at home with continued pain. TTP to lumbar mid spine and coccyx with no step offs or deformities, worsened with flexion/extension of the spine Normal neuro exam with no deficits with no red flag symptoms Due to trauma will check x-ray Differential Diagnosis Differential Diagnoses: The differential diagnosis associated with the presentation includes contusion, fracture low concern for cord compression, caude equina, epidural hematoma, malignancy Admission/Observation Consideration of admission/observation: Escalation of care including admission/observation considered Independent Interpretation I performed an independent interpretation of an: Plain X-Ray Interpretation: I independently reviewed the x-ray and agree with the rad report Radiology Impression Discussion of test interpretation with radiology: I have reviewed the radiol ogist's reading. Radiologist Impression: [place] [id number] XRay Report Signed Patient: Chanda Rose MR#: [id number] : 1945 Acct:[id number] Age/Sex: 79 / F ADM Date: 06/16/25 Loc: HO.ED Attending Dr: Ordering Physician: Betsy Trent NP Date of Service: 06/16/25 Procedure(s): XR sacrum coccyx min 2V Accession Number(s): [id number] cc: Piper Eagle MD; Betsy Trent NP~ Reason for Exam: fall, pain CLINICAL HISTORY: fall, pain 3 views sacrum and coccyx Comparison: None provided Findings No acute fractures. Favored normal irregularity of the coccyx. IMPRESSION: No acute fracture identified by radiograph. This document has been electronically signed by: Lakisha Doherty MD on 06/16/2025 19:03:[address] [address] XRay Report Signed Patient: Chanda Rose MR#: [id number] : 1945 Acct:[id number] Age/Sex: 79 / F ADM Date: 06/16/25 Loc: HO.ED Attending Dr: Ordering Physician: Betsy Trent NP Date of Service: 06/16/25 Procedure(s): XR lumbar spine 2-3V Accession Number(s): [id number] cc: Piper Eagle MD; Betsy Trent NP~ Reason for Exam: fall, pain CLINICAL HISTORY: fall, pain 3 views lumbar spine Comparison: None provided Findings: Straightening of the normal lumbar lordosis. Mild anterolisthesis of L5 on S1. No acute fractures or dislocation. Mild inferior endplate L1 deformity, chronic appearing. Multilevel degenerative endplate changes of the lumbar spine. IMPRESSION: No acute fracture identified by radiograph. This document has been electronically signed by: Lakisha Doherty MD on 06/16/2025 19:03:26 Independent Historian Clinical information obtained from an independent historian. History obtained from or confirmed by: Spouse and Other (daugher) Discharge Plan Discharge Clinical Impression: Lumbar contusion Patient Disposition: Home, Self-Care Instructions: Contusion in Adults (ED) Additional Instructions: the x-rays of her spine show no fracture continue Tylenol home take the additional prescriptions as prescribed heat or ice to the area gentle stretching follow-up with the primary care doctor for any continued symptoms Prescriptions: New lidocaine [Lidoderm] 5 % adhesive patch,medicated 1 patch topical DAILY Qty: 30 0RF Rx Instructions: leave on most painful area for up to 12 hrs cyclobenzaprine 5 mg tablet 5 mg PO TID PRN (Reason: muscle spasm) Qty: 12 0RF No Action donepezil 5 mg Tablet 5 mg PO BEDTIME 30 Days Qty: 30 0RF atorvastatin 80 mg tablet 80 mg PO DAILY 30 Days Qty: 30 0RF cyanocobalamin (vitamin B-12) 1,000 mcg tablet 1,000 mcg PO DAILY Qty: 30 0RF thiamine HCl (vitamin B1) [Vitamin B-1] 100 mg tablet 100 mg PO DAILY 30 Days Qty: 30 0RF acetaminophen [Tylenol Arthritis Pain] 650 mg tablet extended release 650 mg PO Q8H PRN (Reason: pain) Qty: 30 0RF amlodipine 10 mg tablet 10 mg PO DAILY 30 Days Qty: 30 0RF cholecalciferol (vitamin D3) 125 mcg (5,000 unit) capsule 125 mcg PO DAILY Qty: 30 0RF losartan-hydrochlorothiazide 100-25 mg tablet 1 tab PO DAILY trazodone 100 mg tablet 100 mg PO BEDTIME hydroxyzine HCl 50 mg tablet 50 mg PO Q6H PRN (Reason: Anxiety) omeprazole 20 mg capsule,delayed release(DR/EC) 20 mg PO DAILY@0630 sertraline 50 mg tablet 50 mg PO DAILY cefuroxime axetil 250 mg tablet 250 mg PO BID 5 Days Qty: 10 0RF sulfamethoxazole-trimethoprim [Bactrim DS] 800-160 mg tablet 1 tab PO BID Qty: 6 0RF amoxicillin-pot clavulanate 875-125 mg tablet 1 tab PO BID 7 Days Qty: 14 0RF Referrals: Piper Eagle MD [Primary Care Provider, Internal Medicine] Interventions: ED Discharge Assessment Last Done: 06/16/25 19:45 Discharge Date/Time: 06/16/25 19:45 Print Language: Kazakh
[2025-06-16 19:34] VITALS: BP 149/73; PULSE 80; RESP 16; TEMP 36.7; O2SAT 96
[2025-06-16] MEDS: Lidocaine 4 % Patch ADH..PATCH 1 PATCH TRANSDERMA (19:38)
[2025-06-16 19:45] VITALS: BP 149/73; PULSE 80; RESP 16; TEMP 36.7; O2SAT 96
== END 2025-06-16 19:45 | disposition home or self-care (01) ==
PROVIDERS: Emergency Provider Emergency Medicine Emergency Medical Services; PCP Internal Medicine
DX: S30.0XXD Contusion of lower back and pelvis, subsequent encounter (principal); W19.XXXD Unspecified fall, subsequent encounter; Y93.9 Activity, unspecified; Y92.9 Unspecified place or not applicable; E78.5 Hyperlipidemia, unspecified; I10 Essential (primary) hypertension
CPT/HCPCS: 72100; 72220; 99283

== ENCOUNTER → 2025-06-16 18:07 | Outpatient (BNV) | payer OTHER, SELFPAY | PROVIDERS: Emergency Provider Emergency Medicine Emergency Medical Services; PCP Internal Medicine; Visit Provider Student in an Organized Health Care Education/Training Program | DX: M54.50 Low back pain, unspecified (principal); M53.3 Sacrococcygeal disorders, not elsewhere classified; Z04.3 Encounter for examination and observation following other accident | CPT/HCPCS: 72100; 72220 ==

== ENCOUNTER 2025-06-19 08:19 | Outpatient (REF) | payer OTHER, SELFPAY ==
--- NOTE | ~2025-06-19 | XR_ITS ---
EXAMINATION: XR WRIST 3 OR MORE VIEWS LEFT HISTORY: M25.532 - Pain in left wrist COMPARISON: Comparison is made with the prior examination dated 06/06/2025. FINDINGS: Three views of the left wrist are submitted. The bones are osteopenic. There is a healing transverse fracture of the distal radial metaphysis. The fracture line remains visible. There is widening of the scapholunate space, suggestive of ligamentous injury. There is moderate osteoarthritis of the 1st carpometacarpal joint with joint space narrowing. The soft tissues are unremarkable. XR/XR wrist LT min 3V IMPRESSION: 1. Healing transverse fracture of the distal radial metaphysis. 2. Widening of the scapholunate space, suggestive of ligamentous injury. 3. Moderate osteoarthritis of the 1st carpometacarpal joint. Electronically signed by: Duglas Solitario MD 06/19/2025 10:09 AM [email or web address]
== END 2025-06-19 08:20 | disposition home or self-care (01) ==
LOC: HO.HOSX 08:19
DX: S52.502D Unspecified fracture of the lower end of left radius, subsequent encounter for closed fracture with routine healing (principal); W19.XXXD Unspecified fall, subsequent encounter; Z47.89 Encounter for other orthopedic aftercare
CPT/HCPCS: 29075; 73110; 99212

== ENCOUNTER 2025-06-19 09:35 | Outpatient (AMB) | payer OTHER, SELFPAY ==
--- NOTE | 2025-06-19 10:25 | A.OFFVIS_ITS ---
Vital Signs 06/19/25 10:26 Height 5 ft 1 in Weight 141 lb BMI 26.6 Intake Visit Reasons: OV - left distal radius fx, DOI 05/31/25 Intake Note: Chanda 79 yr old right hand dominant female presents today for her follow up visit for her left distal radius fracture from DOI 05/31/25. States she fell at home and hurt her hand. At her last visit she was placed in a short arm cast and was advise to keep cast dry and clean. Today cast was removed and xrays updated in office. Patient states she has a little discomfort but is doing better over all. States she is having back pain but her hand is not hurting. Allergies ibuprofen (From Motrin) Allergy (Verified 06/19/25 10:31) Swelling HPI HPI OV - left distal radius fx, DOI 05/31/25: Details: Chanda 79 yr old right hand dominant female presents today for her follow up visit for her left distal radius fracture from DOI 05/31/25. States she fell at home and hurt her hand. At her last visit she was placed in a short arm cast and was advise to keep cast dry and clean. Today cast was removed and xrays updated in office. Patient states she has a little discomfort but is doing better over all. States she is having back pain but her hand is not hurting. 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 Sexual orientation: Straight/Heterosexual Review of Systems Const All systems reviewed & are unremarkable except as noted in HPI and below Physical Exam Vital Signs: BMI result Body Mass Index 26.6 Const General: cooperative, healthy appearing and no acute distress Orientation/consciousness: patient oriented x3 HEENT Head: Yes normocephalic and Yes atraumatic Eyes EOM: EOMs intact bilaterally Resp Effort & Inspection: normal respiratory effort and able to speak in complete sentences Cardio Jugular venous distension: no JVD Skin General skin exam: turgor normal Rashes: no rashes Neuro General: patient oriented x3 Extrem Other: Evaluation of Left Upper Extremity: The patient is alert, oriented, and in no acute distress Neuro: Median, Ulnar, Radial nerves motor and sensory intact and sensation is normal to the tips of all digits Vascular: Cap refill brisk ROM: She can make a fist and extend all her digits Skin: No lacerations or abrasions. General: Minimal swelling, and resolved ecchymosis on the volar side of the wrist. No Erythema or evidence of infection. Minimally Tender over the fracture site DRUJ stable on exam Radiographs: 3 views of the left wrist were taken and viewed by me today in clinic. They show a distal radius fracture, with ~1-2 degrees dorsal tilt on the lateral view. No displacement on the PA view Psych Appearance: grossly normal Affect: normal affect Attitude: cooperative Office Procedures Casting/Splints 94605-Gyag/Wrist Cast Application Procedure code (CPT) selection complete Assessment & Plan Assessment & Plan (1) Fracture of left distal radius: Code(s): S52.502A - Unspecified fracture of the lower end of left radius, initial encounter for closed fracture Category: Medical Plan Assessment & Plan: 1. Left distal radius fracture, S/P fall DOI: 05/30/25 I educated her about this condition I discussed operative and non-operative treatment options Patient is replaced into a cast today, as I do not see much evidence of healing on her x-rays and I feel that she would benefit from another week or 2 of immobilization Patient is educated on proper cast care and precautions 2 lb weight limit until follow-up Patient is educated to continue working on range of motion of the left hand Patient understands this and is amenable to this plan Follow-up in 2 weeks with repeat x-rays for reassessment, anticipate cast removal at that time, sooner with any acute concerns Orders: Orders XR wrist LT min 3V Today M25.532 - Pain in left wrist Coding Level of Care Code Global (06033) Diagnoses Fracture of left distal radius S52.502A CPT Codes Casting - CPT: 94294-Oevz/Wrist Cast Application ([id number])
[2025-06-19 10:26] VITALS: BMI 26.6
== END 2025-06-19 11:07 | disposition home or self-care (01) ==
LOC: HO.HOS 09:35
PROVIDERS: PCP Internal Medicine
DX: S52.502A Unspecified fracture of the lower end of left radius, initial encounter for closed fracture (principal)
CPT/HCPCS: 29075; 99024

== ENCOUNTER → 2025-06-19 09:43 | Outpatient (BNV) | payer OTHER, SELFPAY | PROVIDERS: Visit Provider Radiology Diagnostic Radiology | DX: S52.321A Displaced transverse fracture of shaft of right radius, initial encounter for closed fracture (principal); M18.12 Unilateral primary osteoarthritis of first carpometacarpal joint, left hand | CPT/HCPCS: 73110 ==